=== PATIENT | male | born 1940 | race Caucasian/White ===

== ENCOUNTER → 2017-11-04 10:12 | Outpatient (CLI) | payer MEDICARE, SELFPAY ==
[2017-11-04 10:27] LABS: Microscopic, Urine URINE MICROSCOPIC (MICROSCOPIC)
[2017-11-04 10:49] LABS: Basophils # 0.1 K/mm3 (0-0.2); Basophils % 0.8 % (0.1-2.0); Eosinophils # 0.2 K/mm3 (0.0-0.4); Eosinophils % 2.3 % (0.1-12.0); Hematocrit 48.7 % (42.0-52.0); Hemoglobin 15.8 g/dL (14.1-18.0); Lymphocytes # 3.1 K/mm3 (0.7-4.5); Lymphocytes % 36.4 K/mm3 (10-50); Mean Corpuscular HGB Conc 32.3 g/dL (31.8-35.4); Mean Platelet Volume 7.4 fl (7.4-10.4); Monocytes # 0.6 K/mm3 (0.1-1.0); Monocytes % 7.1 % (1.7-9.3); Neutrophils # 4.5 K/mm3 (1.8-7.8); Neutrophils % 53.5 % (37.0-80.0); Platelet Count 298 K/mm3 (142-424); Red Blood Count 4.92 M/mm3 (4.60-6.20); Red Cell Distribution Width 12.8 % (11.5-17.5); White Blood Count 8.4 K/mm3 (4.8-10.8)
[2017-11-04 11:03] LABS: Appearance,Urine CLEAR (Clear); Bilirubin,Urine Negative (Negative); Blood, Urine TRACE-L (Negative); Color,Urine YELLOW (Yellow); Glucose,Urine (UA) Negative (Negative); Ketones,Urine Negative (Negative); Leukocyte Esterase,Urine Negative (Negative); Nitrate,Urine Negative (Negative); PH,Urine 6.5 (5.0-8.5); Protein,Urine Negative (Negative); Urobilinogen,Urine 0.2 EU/dl (0.2)
[2017-11-04 11:35] LABS: Hemoglobin A1C 7.1 % (0.0-7.0)
[2017-11-04 11:45] LABS: Bacteria,Urine Trace /lpf; RBC,Urine Occasional #/hpf (0-3)
[2017-11-04 13:52] LABS: Alanine Aminotransferase 19 U/L (12-78); Albumin/Globulin Ratio 1.1 (1.1-1.8); Alkaline Phosphatase 84 U/L (46-116); Aspartate Amino Transferase 11 U/L (15-37); Bilirubin,Total 0.4 mg/dL (0.2-1.0); Blood Urea Nitrogen 17 mg/dL (7-18); Calcium 9.7 mg/dL (8.5-10.1); Carbon Dioxide 31 mmol/L (21.0-32.0); Chloride 101 mmol/L (98-107); Cholesterol 120 mg/dL (140-200); Creatinine,Serum 1.12 mg/dL (0.70-1.30); Estimated Glomerular Filt Rate 64 ml/min (>60); GFR (African American) 77 ML/MIN (>60); Globulin 3.7 gm/dl (1.3-3.2); Glucose 101 mg/dL (74-106); HDL Cholesterol 30 mg/dL (27-67); LDL Cholesterol 64 mg/dL (0-130); Sodium 140 mmol/L (136-145); Thyroid Stimulating Hormone 5.08 uIU/ml (0.358-3.740); Total Protein,Serum 7.7 gm/dL (6.4-8.2); Triglycerides 130 mg/dL (30-200); VLDL Cholesterol 26 mg/dL (0-40)
[2017-11-05 16:54] LABS: Microalbumin, Urine 3.8 ug/mL (Not Estab.)
== END ==
PROVIDERS: PCP Internal Medicine Adolescent Medicine; Visit Provider Internal Medicine Adolescent Medicine
DX: E11.41 Type 2 diabetes mellitus with diabetic mononeuropathy (principal); I10 Essential (primary) hypertension
CPT/HCPCS: 36415; 80053; 80061; 81001; 82043; 83036; 84443; 85025

== ENCOUNTER → 2018-02-07 10:14 | Outpatient (CLI) | payer MEDICARE, SELFPAY ==
[2018-02-07 10:57] LABS: Hemoglobin A1C 8.4 % (0.0-7.0)
[2018-02-07 14:14] LABS: Alanine Aminotransferase 26 U/L (12-78); Albumin Level 4.1 gm/dL (3.4-5.0); Albumin/Globulin Ratio 1.2 (1.1-1.8); Alkaline Phosphatase 84 U/L (46-116); Anion Gap 13.1 mEq/L (5-15); Aspartate Amino Transferase 14 U/L (15-37); Bilirubin,Total 0.5 mg/dL (0.2-1.0); Blood Urea Nitrogen 17 mg/dL (7-18); Calcium 9.5 mg/dL (8.5-10.1); Carbon Dioxide 31 mmol/L (21.0-32.0); Chloride 99 mmol/L (98-107); Chol/HDL Ratio 3.1 (1-3.5); Cholesterol 91 mg/dL (140-200); Creatinine,Serum 1.17 mg/dL (0.70-1.30); Estimated Glomerular Filt Rate 61 ml/min (>60); GFR (African American) 74 ML/MIN (>60); Globulin 3.3 gm/dl (1.3-3.2); Glucose 119 mg/dL (74-106); HDL Cholesterol 29 mg/dL (27-67); LDL Cholesterol 33 mg/dL (0-130); Potassium 4.1 mmoL/L (3.5-5.1); Sodium 139 mmol/L (136-145); Total Protein,Serum 7.4 gm/dL (6.4-8.2); Triglycerides 143 mg/dL (30-200); VLDL Cholesterol 29 mg/dL (0-40)
== END ==
PROVIDERS: Visit Provider Internal Medicine Adolescent Medicine
DX: E78.01 Familial hypercholesterolemia (principal); E11.41 Type 2 diabetes mellitus with diabetic mononeuropathy
CPT/HCPCS: 36415; 80053; 80061; 83036

== ENCOUNTER → 2018-03-06 12:53 | Outpatient (CLI) | payer MEDICARE, SELFPAY ==
[2018-03-06 13:25] LABS: Basophils # 0.1 K/mm3 (0-0.2); Basophils % 0.8 % (0.1-2.0); Eosinophils # 0.2 K/mm3 (0.0-0.4); Eosinophils % 1.5 % (0.1-12.0); Hematocrit 44.3 % (42.0-52.0); Hemoglobin 14.5 g/dL (14.1-18.0); Lymphocytes % 30.4 % (10-50); Mean Corpuscular HGB Conc 32.8 g/dL (31.8-35.4); Mean Corpuscular Hemoglobin 32.7 pg (27.0-31.2); Mean Corpuscular Volume 99.5 fl (80-94); Mean Platelet Volume 7.4 fl (7.4-10.4); Monocytes # 0.6 K/mm3 (0.1-1.0); Monocytes % 6.1 % (1.7-9.3); Neutrophils % 61.3 % (37.0-80.0); Platelet Count 308 K/mm3 (142-424); Red Blood Count 4.45 M/mm3 (4.60-6.20); Red Cell Distribution Width 12.8 % (11.5-17.5); White Blood Count 9.8 K/mm3 (4.8-10.8)
[2018-03-06 14:26] LABS: Alanine Aminotransferase 27 U/L (12-78); Albumin Level 3.7 gm/dL (3.4-5.0); Albumin/Globulin Ratio 1.1 (1.1-1.8); Alkaline Phosphatase 78 U/L (46-116); Anion Gap 13.8 mEq/L (5-15); Aspartate Amino Transferase 15 U/L (15-37); Bilirubin,Total 0.5 mg/dL (0.2-1.0); Blood Urea Nitrogen 21 mg/dL (7-18); Calcium 9.4 mg/dL (8.5-10.1); Carbon Dioxide 29 mmol/L (21.0-32.0); Chloride 98 mmol/L (98-107); Creatine Kinase 48 U/L (39-308); Creatinine,Serum 1.41 mg/dL (0.70-1.30); Estimated Glomerular Filt Rate 49 ml/min (>60); Free Thyroxine Index 2.6 ug/dL (5.93-13.13); GFR (African American) 59 ML/MIN (>60); Globulin 3.4 gm/dl (1.3-3.2); Glucose 174 mg/dL (74-106); Potassium 3.8 mmoL/L (3.5-5.1); Sodium 137 mmol/L (136-145); T4 (Thyroxine) 7.9 ug/dl (4.7-13.3); Thyroid Stimulating Hormone 2.91 uIU/ml (0.358-3.740); Total Protein,Serum 7.1 gm/dL (6.4-8.2); Triiodothryronine (T3) Uptake 33 % (31-39)
[2018-03-08 17:17] LABS: Vitamin B12 265 pg/mL (232-1245)
== END ==
PROVIDERS: Visit Provider Internal Medicine Adolescent Medicine
DX: M79.10 Myalgia, unspecified site (principal)
CPT/HCPCS: 36415; 80053; 82550; 82607; 84436; 84443; 84479; 85025

== ENCOUNTER → 2018-03-23 15:19 | Outpatient (CLI) | payer MEDICARE, SELFPAY ==
[2018-03-23 16:44] LABS: Anion Gap 13.7 mEq/L (5-15); Blood Urea Nitrogen 19 mg/dL (7-18); Calcium 9.2 mg/dL (8.5-10.1); Carbon Dioxide 30 mmol/L (21.0-32.0); Chloride 100 mmol/L (98-107); Creatinine,Serum 1.16 mg/dL (0.70-1.30); Estimated Glomerular Filt Rate 61 ml/min (>60); GFR (African American) 74 ML/MIN (>60); Glucose 122 mg/dL (74-106); Potassium 3.7 mmoL/L (3.5-5.1); Sodium 140 mmol/L (136-145)
== END ==
PROVIDERS: Visit Provider Internal Medicine Adolescent Medicine
DX: N18.9 Chronic kidney disease, unspecified (principal)
CPT/HCPCS: 36415; 80048

== ENCOUNTER → 2018-04-24 17:46 | Outpatient (CLI) | payer MEDICARE, SELFPAY ==
[2018-04-24 19:02] LABS: Hemoglobin A1C 8.8 % (0.0-7.0)
[2018-04-24 19:19] LABS: Alanine Aminotransferase 28 U/L (12-78); Albumin Level 3.4 gm/dL (3.4-5.0); Alkaline Phosphatase 71 U/L (46-116); Anion Gap 14.9 mEq/L (5-15); Aspartate Amino Transferase 14 U/L (15-37); Bilirubin,Total 0.5 mg/dL (0.2-1.0); Blood Urea Nitrogen 23 mg/dL (7-18); Calcium 9.4 mg/dL (8.5-10.1); Carbon Dioxide 29 mmol/L (21.0-32.0); Chloride 94 mmol/L (98-107); Creatinine,Serum 1.15 mg/dL (0.70-1.30); Estimated Glomerular Filt Rate 62 ml/min (>60); GFR (African American) 75 ML/MIN (>60); Globulin 3.3 gm/dl (1.3-3.2); Glucose 204 mg/dL (74-106); Potassium 3.9 mmoL/L (3.5-5.1); Sodium 134 mmol/L (136-145); Total Protein,Serum 6.7 gm/dL (6.4-8.2)
== END ==
PROVIDERS: Visit Provider Internal Medicine Adolescent Medicine
DX: E11.41 Type 2 diabetes mellitus with diabetic mononeuropathy (principal); Z79.4 Long term (current) use of insulin; Z79.84 Long term (current) use of oral hypoglycemic drugs
CPT/HCPCS: 36415; 80053; 83036

== ENCOUNTER → 2018-05-29 08:29 | Outpatient (CLI) | payer MEDICARE, SELFPAY ==
--- NOTE | 2018-05-29 08:36 | US_ITS ---
US abd. aorta screening HISTORY: ITS.REASON: AAA,HYPERTENSION,TOBACCO USE ORDERING PHYSICIAN: Thomas Bowman MD PATIENT AGE: 78 years Comparison: None FINDINGS: The proximal abdominal aorta at the level of the xiphoid process measures 2.0 x 2.7 cm. At the level 4 cm below the xiphoid process the aorta measures 2.5 x 2.3 cm. The bifurcation is normal in caliber and the origins of the common iliacs are normal. At level 2 cm above the umbilicus the aorta measures 2.1 x 2.1 cm. At the umbilicus the aorta measures 2.4 x 1.3 cm. OTHER FINDINGS: No other pertinent findings IMPRESSION: Borderline dilatation of the infrarenal aorta.
== END ==
PROVIDERS: PCP Internal Medicine Adolescent Medicine; Visit Provider Internal Medicine Adolescent Medicine
DX: Z13.6 Encounter for screening for cardiovascular disorders (principal); I10 Essential (primary) hypertension; F17.200 Nicotine dependence, unspecified, uncomplicated
CPT/HCPCS: 76705

== ENCOUNTER → 2018-07-28 09:56 | Outpatient (CLI) | payer MEDICARE, SELFPAY ==
[2018-07-28 11:58] LABS: Alanine Aminotransferase 20 U/L (12-78); Albumin Level 3.5 gm/dL (3.4-5.0); Albumin/Globulin Ratio 1.1 (1.1-1.8); Alkaline Phosphatase 65 U/L (46-116); Anion Gap 8.9 mEq/L (5-15); Aspartate Amino Transferase 12 U/L (15-37); Bilirubin,Total 0.6 mg/dL (0.2-1.0); Blood Urea Nitrogen 14 mg/dL (7-18); Carbon Dioxide 33 mmol/L (21.0-32.0); Chloride 104 mmol/L (98-107); Creatinine,Serum 1.05 mg/dL (0.70-1.30); Estimated Glomerular Filt Rate 69 ml/min (>60); GFR (African American) 83 ML/MIN (>60); Globulin 3.3 gm/dl (1.3-3.2); Glucose 181 mg/dL (74-106); Potassium 3.9 mmoL/L (3.5-5.1); Sodium 142 mmol/L (136-145); Total Protein,Serum 6.8 gm/dL (6.4-8.2)
[2018-07-28 14:34] LABS: Hemoglobin A1C 8.1 % (0.0-7.0)
== END ==
PROVIDERS: Visit Provider Internal Medicine Adolescent Medicine
DX: E11.41 Type 2 diabetes mellitus with diabetic mononeuropathy (principal); Z79.4 Long term (current) use of insulin; Z79.84 Long term (current) use of oral hypoglycemic drugs
CPT/HCPCS: 36415; 80053; 83036

== ENCOUNTER → 2019-04-01 07:44 | Outpatient (CLI) | payer MEDICARE, SELFPAY ==
--- NOTE | 2019-04-01 08:00 | CT_ITS ---
PROCEDURE: CT LUNG SCREENING CLINICAL INDICATION: CURRENT TOBACCO USE COMPARISON: No exams were available for comparison TECHNIQUE: The exam was performed on a GE Light Speed [address] scanner using 2.90 mGy CTDI. A low dose helical CT CHEST was performed on a multi-detector scanner. All CT scans at the facility use one or more dose reduction, viz: automated exposure control, ma/kV adjustment per patient size (including targeted exams where dose is matched to indication, i.e. head), or iterative reconstruction technique. The LDCT was performed in a facility that meets the criteria for the screening program. Data regarding this exam was submitted to ACR which is an approved registry. The order for this exam indicates that it came as a result of a lung cancer screening counseling shard decision-making visit that included all the elements required of such a visit including smoking cessation. The radiologist interpreting this exam meets the CMS criteria for the LDCT lung cancer screening program. The exam is reported using the Lung-RADS classification scale and reported to the ACR registry. NOTE: This study was performed for the specific purposes of lung cancer screening and is not an alternative to diagnostic chest CT. RADIATION DOSE: CTDI vol(CT dose Index-volume) = 2.90mG DLP (Dose Length Product) = 117.24 mGcm Lung Rads Category: 4A -suspicious follow-up 3 month low-dose CT, or PET/CT at this time should be considered for further assessment. FINDINGS: On image 47 series 4 noncalcified pulmonary nodule is seen in the left mid lung field along the oblique fissure approximately 7.5 x 8.3 millimeters. A 3.5 millimeter noncalcified pulmonary nodule is seen in the. Lungs are emphysematous. There is scarring in the extreme left apex. There are coronary arterial calcifications. Small nonspecific mediastinal lymph nodes are noted. Calcified right hilar lymph nodes are noted consistent with healed granulomatous disease. It is possible the pulmonary nodules are noncalcified granulomas. 6 centimeter cyst is incidentally noted of the upper pole the left kidney. IMPRESSION: Suspicious nodule as described. Follow up is recommended. Dictated by: Daryl Valentino 04/01/2019 08:58 Electronically signed by Daryl Valentino in [place] 04/01/2019 08:58
== END ==
PROVIDERS: PCP Internal Medicine Adolescent Medicine; Visit Provider Internal Medicine Adolescent Medicine
DX: Z87.891 Personal history of nicotine dependence (principal); Z12.2 Encounter for screening for malignant neoplasm of respiratory organs

== ENCOUNTER → 2019-07-01 16:38 | Outpatient (CLI) | payer MEDICARE, SELFPAY ==
--- NOTE | 2019-07-01 16:44 | XR_ITS ---
PROCEDURE: XR CERVICAL SPINE 5V CLINICAL INDICATION: NECK PAIN COMPARISON: No exams were available for comparison FINDINGS: There is normal alignment. No acute fracture or dislocation is evident. There is fusion of the C2-C3 vertebra. There is mild foraminal narrowing on the right at C3-C4 and on the left at C4-C5. There is some minimal ossification anteriorly at the disc space at C4-C5 and C5-C6 and C6-C7. There is minimal anterolisthesis of C6 on C7 of 2 mm. There is mild kyphosis of the upper thoracic spine. IMPRESSION: Degenerative changes as described above. Klippel-Feil deformity of C2-C3 Dictated by: Benito Nicolas MD 07/01/2019 18:15 Electronically signed by Benito Nicolas MD in [facility] 07/01/2019 18:15
== END ==
PROVIDERS: PCP Internal Medicine Adolescent Medicine; Visit Provider Nurse Practitioner Family
DX: M54.2 Cervicalgia (principal)
CPT/HCPCS: 72050

== ENCOUNTER → 2019-10-27 07:14 | Outpatient (CLI) | payer MEDICARE, SELFPAY ==
--- NOTE | 2019-10-27 | CA_ITS ---
APPROVED REPORT Exam: Pharmacologic Technologist: Vicki Vanegas, Ht: 6 ft 3 in Wt: 208 lbs BSA: 2.23 m2 HR: 78 bpm BP: 183/78 mmHg Indications: Chest pain Medical History Medications: Metformin,,,,, Gabapentin,,,,, INSULIN,,,,, MeLOXICAM,,,,, CHlorthalidone,,,,, BisOPROLOL,,,,, RuSUVASTATIN,,,,, Asprin,,,,, QuinArip-HCTZ,,,,, Stress Test Details Test: LEXISCAN HR Resting HR: 59 bpm Max Heart Rate (APMHR): 143 bpm Max HR Achieved: 85 bpm Target HR (85% APMHR): 121 bpm % of APMHR: 59 Recovery HR: 77 bpm BP Resting BP: 183/78 mmHg Max BP: 183/78 mmHg Recovery BP: 165.0/71.0 mmHg ECG Clinical Exercise duration: 04:01 min Highest Stage Achieved: Stress ECG Conclusion Resting EKG: NSR, PVC Symptoms: SOA, cough, No Chest Pain Arrythmias/Ectopy: None ST-T Changes: No significant changes Conclusion: Unremarkable Lexiscan stress, Myoview images reported separately Test Summary REST . . . . . . . Resting REST 02:14 . . 59 . 183/ 78 . . Stage 1 01:00 . . 75 . . . . Stage 2 01:00 . . 85 . 150/ 71 . . Stage 3 01:00 . . 83 . 160/ 72 . . Stage 4 01:00 . . 75 . 168/ 74 . . Stage 4 01:01 . . 73 . 168/ 74 . Stop exercise at 04:01 RECOVERY 01:00 . . 80 . . . . RECOVERY 02:00 . . 78 . 158/ 74 . . RECOVERY 03:00 . . 77 . 158/ 74 . . RECOVERY 03:17 . . 77 . 165/ 71 . . Electronically signed by : Phong Ngo, 10/28/2019 14:21:43
--- NOTE | 2019-10-27 07:19 | NM_ITS ---
APPROVED REPORT Exam: Nuclear Stress Test Indication: Chest pain, CAD, HTN, DM, High cholesterol, Tobacco use Patient Location: Outpatient [place] Tech:Nellie Tellez MIGUELT, RT (R)(N) Ht: 6 ft 3 in Wt: 208 lbs HR: 78 bpm BP: 183/78 mmHg BSA: 2.23 m2 BMI: 25.9 History: Chest pain, CAD, HTN, DM, High cholesterol, Tobacco use Procedure: Patient received a 0.4 mg of intravenous Lexiscan, resting heart rate 78 bpm, resting blood pressure 183/78 mmHg, with Lexiscan maximum heart rate achived was 85 bpm which is Less than 85 % of the maximum predicted heart rate and blood pressure was 150/71 mmHg. With Lexiscan, patient denied any complaint of chest pain. Electrocardiogram Resting electrocardiogram showed sinus rhythm, with Lexiscan there is less than 1.[address] segment depression noted from the baseline EKG. The EKG portion of the Lexiscan is nondiagnostic. Cardiac Stress and Resting SPECT Images: Cardiac Stress and Resting SPECT images were obtained using technetium 99m Myoview 32.8 mCi stress and 10.24 mCi at rest. Gated SPECT for analysis of segmental wall motion and calculation of the ejection fraction also done. Cardiac stress and resting SPECT images show a fixed defect involving the inferior and posterolateral wall with normal contractility gated SPECT is likely secondary to soft tissue attenuation, no reversible ischemia seen. Computer derived ejection fraction is 57% with no regional wall motion abnormality, right ventricle is normal size and contractility. Conclusion: 1. The EKG portion of the Lexiscan Myoview is nondiagnostic. 2. No scintigraphic evidence of reversible ischemia seen, computer derived ejection fraction 57% with no regional wall motion abnormality, right ventricle is normal size and contractility. 3. Likely normal Lexiscan Myoview study. Electronically signed by : Phong Ngo, 10/28/2019 14:24:42
== END ==
PROVIDERS: PCP Internal Medicine Adolescent Medicine; Visit Provider Internal Medicine Adolescent Medicine
DX: R07.9 Chest pain, unspecified (principal)
CPT/HCPCS: 78452; 93017; A9502; J2785

== ENCOUNTER → 2020-03-17 15:06 | Outpatient (CLI) | payer MEDICARE, SELFPAY ==
[2020-03-17 16:47] LABS: Hemoglobin A1C 8.6 % (4.0-6.0)
[2020-03-17 17:25] LABS: Alanine Aminotransferase 13 U/L (12-78); Albumin Level 4.2 g/dl (3.5-5.0); Albumin/Globulin Ratio 1.5 (1.1-1.8); Alkaline Phosphatase 62 U/L (38-126); Anion Gap 10.1 mEq/L (5-15); Aspartate Amino Transferase 21 U/L (17-59); Bilirubin,Total 0.4 mg/dl (0.2-1.3); Blood Urea Nitrogen 13 mg/dl (9-20); Calcium 9.9 mg/dl (8.4-10.2); Carbon Dioxide 33 mmol/L (22.0-30.0); Chloride 99 mmol/L (98-107); Chol/HDL Ratio 3.4 (1-3.5); Cholesterol 85 mg/dl (140-200); Estimated Glomerular Filt Rate 72 ml/min (>60); GFR (African American) 88 ML/MIN (>60); Globulin 2.8 g/dL (1.3-3.2); Glucose 352 mg/dl (74-100); HDL Cholesterol 25 mg/dl (40-60); Potassium 5.1 mmoL/L (3.5-5.1); Sodium 137 mmol/L (136-145); Triglycerides 224 mg/dl (30-150); VLDL Cholesterol 45 mg/dL (0-40)
[2020-03-17 17:36] LABS: Direct LDL Cholesterol 31.07 mg/dL (100-129)
== END ==
PROVIDERS: Visit Provider Internal Medicine Adolescent Medicine
DX: I10 Essential (primary) hypertension (principal); E11.41 Type 2 diabetes mellitus with diabetic mononeuropathy; Z79.4 Long term (current) use of insulin
CPT/HCPCS: 36415; 80053; 80061; 83036

== ENCOUNTER → 2020-06-20 07:22 | Outpatient (CLI) | payer MEDICARE, SELFPAY ==
--- NOTE | 2020-06-20 07:27 | CT_ITS ---
PROCEDURE: CT LUNG SCREENING CLINICAL INDICATION: H/O NICOTINE DEPENDENCE COMPARISON: CT CT LUNG SCREENING from 04/01/2019 TECHNIQUE: The exam was performed on a GE Light Speed [address] scanner using 2.90 mGy CTDI. A low dose helical CT CHEST was performed on a multi-detector scanner. All CT scans at the facility use one or more dose reduction, viz: automated exposure control, ma/kV adjustment per patient size (including targeted exams where dose is matched to indication, i.e. head), or iterative reconstruction technique. The LDCT was performed in a facility that meets the criteria for the screening program. Data regarding this exam was submitted to ACR which is an approved registry. The order for this exam indicates that it came as a result of a lung cancer screening counseling shard decision-making visit that included all the elements required of such a visit including smoking cessation. The radiologist interpreting this exam meets the CMS criteria for the LDCT lung cancer screening program. The exam is reported using the Lung-RADS classification scale and reported to the ACR registry. NOTE: This study was performed for the specific purposes of lung cancer screening and is not an alternative to diagnostic chest CT. RADIATION DOSE: CTDI vol(CT dose Index-volume) = 2.90mG DLP (Dose Length Product) = mGcm FINDINGS: There is subpleural minor tree-in-bud appearance is noted measuring up to 1.4 centimeters in the right upper lobe. This may represent minor infection/inflammation. There is minor left basal atelectasis. 3 millimeter nodule in the left upper lobe is unchanged subpleural nodule in the right lower lobe is again noted measuring 8 millimeters, unchanged. Minor centrilobular emphysematous changes are noted bilaterally. No lobar consolidation, pleural effusions or pneumothorax. The central tracheobronchial tree is patent. No other new suspicious lung nodules are noted. The heart size is normal. No pericardial effusions. Atherosclerotic vascular calcification of the thoracic aorta and the coronary arteries. No significant mediastinal adenopathy. No significant hilar lymphadenopathy is noted within the limitations of unenhanced study. Few calcified lymph nodes are noted in the right hilum. The visualized upper abdominal solid organs demonstrate a focal hypodense lesion in the left kidney measuring 6.6 x 6.2 cm, partially visualized. This is unchanged compared to prior study. Minor multilevel degenerative changes of the visualized thoracic spine. Visualized thyroid gland is unremarkable. IMPRESSION: Focal tree-in-bud appearance in the right upper lobe. This may represent minor infection/inflammation. Stable lung nodules are again noted. Lung-RADS Category 3 Probably Benign Follow-up: Follow-up non-contrast CT in 6-12 months is recommended. Dictated by: Isabella Arriaza 06/20/2020 10:12 Isabella Arriaza in [place] 06/20/2020 10:12
== END ==
PROVIDERS: PCP Internal Medicine Adolescent Medicine; Visit Provider Internal Medicine Adolescent Medicine
DX: Z87.891 Personal history of nicotine dependence (principal); Z12.2 Encounter for screening for malignant neoplasm of respiratory organs
CPT/HCPCS: 71271

== ENCOUNTER → 2020-08-04 15:18 | Outpatient (CLI) | payer MEDICARE, SELFPAY ==
[2020-08-04 16:42] LABS: Prostate Specific Ag Screen 1.2 ng/ml (0.0-4.0)
== END ==
PROVIDERS: Visit Provider Urology
DX: Z12.5 Encounter for screening for malignant neoplasm of prostate (principal)
CPT/HCPCS: 36415; G0103

== ENCOUNTER → 2021-07-17 13:28 | Outpatient (POV) | payer MEDICARE, SELFPAY ==
[2021-07-17 13:56] VITALS: BP 190/76; PULSE 59; RESP 18; TEMP 36.9; O2SAT 97; BMI 26.6
--- NOTE | 2021-07-17 14:35 | HMH.PMCON ---
Assessment and Plan (1) Chronic low back pain Status: Acute Category: Medical Code(s): M54.50 - Low back pain, unspecified; G89.29 - Other chronic pain (2) Lumbar radiculopathy Status: Acute Category: Medical Code(s): M54.16 - Radiculopathy, lumbar region - Assessment and plan all Dx Assessment and Plan for all problems:: We will schedule the patient for a lumbar epidural steroid injection at L4-L5. Risk and benefits have been discussed with the patient. Patient would like to proceed with this procedure. Patient is not on any blood thinners. We will also order an updated lumbar MRI. Patient has been instructed to contact the clinic with any concerns before the next appointment. Dr. Crowder has reviewed this note and agrees with this plan of care. This note was dictated using voice recognition software and make contain errors or omissions. HPI - Data of Consult Patient: new to practice Consult date: 07/17/21 Requesting Physician: KARIN Shelton - Consult Narrative Reason for consult: low back pain History of present illness: Mr. Nunez is a 81 year old male who presents today as a new pt. 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 Patient presents today with chronic LBP that radiates to BLE, R > L. He states that he has had this back pain for over 20 years. He said he got kneed in the back while he was traveling. He has had this pain since then. Denies any recent falls or traumas. In the past, he was managing this pain with epidural steroid injections'. He says that he was seeing [place] that would do these injections. Each injection would typically last 6 months. He has not been to that doctor in about 4 years. He has not had any updated imaging. He has done physical therapy and chiropractic adjustments that provided some relief. Pain is worse with any prolonged activity such as standing or walking. He also has pain while riding his mower. Rates pain today as 8 out of 10. He takes [id number] medications. He is not on any scheduled medications. Pineda [id number] with an active morphine equivalent of 0. CC: KARIN Shelton [facility] History I have reviewed the patient's past medical history: Yes Medical History: Reports:: Coronary Artery Disease, Hyperlipidemia, Hypertension, Myocardial Infarction Denies:: Cancer, Diabetes Mellitus Type 1, Diabetes Mellitus Type 2, MRSA *Have you ever received a pneumonia vaccine?: Yes *Have you received a flu vaccine this season?: Yes Other Medical History: Reports: Arthritis Other Surgeries: Yes: No Previous Surgery, Colonoscopy, Coronary Stent Amputation: No Fractures: No - *Social History Smoking Status: Current every day smoker Tobacco Type: cigarettes # Packs/Day (cigarettes): 1 Alcohol Intake: never Substance Use Type: denies use *Occupational Status:: retired Housing: house Household Members: spouse *Travel in the last 8 weeks: None Family Hx:: Diabetes, Hypertension Review of Systems - Review of Systems Review of Systems: General: No recent weight changes, no fever, no sleep disturbances Respiratory: No cough, no shortness of air, no recurring pulmonary infections Cardiovascular/peripheral vascular: No chest pain, no palpitations, no edema, no shortness of breath Gastrointestinal: No new onset incontinence, normal bowel movements reported Genitourinary: No new onset incontinence Musculoskeletal: Low back pain Psychiatric: [Normal mood/affect] Neurological: [Denies weakness in extremities], [denies balance issues] Meds Home Medications Medication Instructions Recorded Confirmed Type Bisoprolol Fumarate [Bisoprolol 5 mg PO DAILY 01/17/18 05/14/21 History 5mg Tablet] Gabapentin [Gabapentin 300mg Cap] 300 mg PO BID 01/17/18 05/14/21 History Metformin HCl [Metformin HCl ER] 1,000 mg PO BID 01/17/18 05/14/21 History insulin aspar prt-insulin aspart 40 unit SQ DAILY ml 05/14/21 05/14/21 History 100 unit/mL (70-30) subcutaneous soln q
== END ==
PROVIDERS: Visit Provider Student in an Organized Health Care Education/Training Program
DX: M54.16 Radiculopathy, lumbar region (principal); M54.50 Low back pain, unspecified; G89.29 Other chronic pain
CPT/HCPCS: 99202; G0463

== ENCOUNTER → 2021-07-18 13:03 | Outpatient (CLI) | payer MEDICARE, SELFPAY ==
--- NOTE | 2021-07-18 13:10 | CT_ITS ---
FINAL REPORT TECHNIQUE: Axial CT images were performed from the lung apices through the upper abdomen. Coronal reformats were submitted. This study was performed with techniques to keep radiation doses as low as reasonably achievable (ALARA). Individualized dose reduction techniques using automated exposure control or adjustment of mA and/or kV according to the patient's size were employed. CLINICAL HISTORY: TOBACCO USE DISORDER. SOB COMPARISON: 06/20/2020 FINDINGS: There is no axillary adenopathy. There is severe coronary artery calcification. There are small mediastinal nodes without evidence of adenopathy. Heart size is normal. There is no pericardial or pleural effusion. There is mild emphysema. There is a 9 mm nodular opacity in the lateral right upper lobe which is stable. There is a posterior right upper lobe nodule measuring 4 mm, stable. There is an 8 mm nodule at the left major fissure, stable. This may represent an intra fissural node. There is a new, nodule in the anterior left upper lobe measuring 5 mm. Limited images of the upper abdomen show the gallbladder to be partially collapsed with mild wall thickening. There is a partially imaged cyst in the left kidney. IMPRESSION: New left upper lobe nodule measures 5 mm. Recommend six-month follow-up. Other stable nodules as detailed above. Reviewed, Interpreted and Dictated by Schuyler Hazel III, MD Transcribed by Fabiola Malloy Authenticated and . [facility]
== END ==
PROVIDERS: PCP Internal Medicine Adolescent Medicine; Visit Provider Nurse Practitioner Family
DX: R06.02 Shortness of breath (principal); F17.200 Nicotine dependence, unspecified, uncomplicated
CPT/HCPCS: 71250

== ENCOUNTER 2021-07-20 12:06 | Day surgery (SDC) | payer MEDICARE, SELFPAY ==
[2021-07-20 12:24] VITALS: BP 186/98; PULSE 59; RESP 20; TEMP 36.8; O2SAT 98; BMI 26.6
[2021-07-20 12:46] VITALS: BP 181/79; PULSE 60; RESP 18
--- NOTE | 2021-07-20 12:46 | HMH.PMPROC ---
- Procedure Date: 07/20/21 Time: 12:47 Anesthesiologist:: Caleb Jiang CRNA Complications:: None Pre-procedure Diagnosis:: Lumbar back pain. Lumbar radiculopathy symptoms. Post-procedure Diagnosis:: Same Indications for Procedure:: Very pleasant 81-year-old male who comes our injection clinic today for lumbar epidural steroid injection at the L4-5 level. Patient states his low back pain is constant, dull, aching. Patient also has bilateral leg radiculopathy symptoms. He rates his pain 7/10 today. Procedure Details:: Procedure: Lumbar epidural steroid injection under fluoroscopy Informed consent was obtained and the risks and benefits of the procedure were explained to the patient. The patient was taken to the procedure room and noninvasive monitors placed, including noninvasive blood pressure cuff and pulse oximeter. The back was viewed using C-arm Fluoroscopy and prepped using Betadine as a cleansing solution and the L4-L5 interspace was palpated. Skin and subcutaneous tissues were anesthetized using lidocaine 1.5% and a 25-gauge needle. After this, an 18-gauge Touhy epidural needle was placed into the L4-L5 interspace and advanced using fluoroscopic guidance and loss of resistance to air until the epidural space was encountered. After confirmation of needle placement in the epidural space, with dye, a solution containing lidocaine 1.5%, 4 mL and Depo-Medrol 80 mg were incrementally injected into the lumbar epidural space. The patient tolerated the procedure well with no complications. The patient was observed in the Pain Clinic and then discharged home neurologically intact. Plan and Disposition:: Patient was discharged without incident.
[2021-07-20 12:47] VITALS: BP 190/80; PULSE 60; RESP 18; O2SAT 97
[2021-07-20 13:05] VITALS: BP 195/82; PULSE 59; RESP 20; O2SAT 98
--- NOTE | 2021-07-20 13:29 | MR_ITS ---
FINAL REPORT CLINICAL HISTORY: BACK PAIN. symptoms xyears FINDINGS: Multiplanar MR imaging of the lumbar spine was performed without contrast. On the sagittal T2-weighted images, disc degeneration is seen throughout. There are endplate changes at L4-L5 and L5-S1. The vertebral alignment is normal. There is no evidence of fracture. The conus has an unremarkable appearance. T12-L1: There is no significant canal stenosis or neural foraminal narrowing. L1-2: An annular bulge is present. L2-3: There is an annular bulge, facet arthropathy and vertebral osteophytes. There is a right posterolateral disc protrusion. There is mild right neural foraminal narrowing. L3-4: There is an annular bulge and facet arthropathy. There is mild bilateral neural foraminal narrowing. L4-5: There is an annular bulge, facet arthropathy and vertebral osteophytes. There is a small central disc protrusion. There is moderate right and mild left neural foraminal narrowing. There is right lateral recess stenosis. There is mild central canal stenosis with an AP thecal sac diameter of 9 mm. L5-S1: There is an annular bulge and facet arthropathy. There is moderate bilateral neural foraminal narrowing. There is spurring of the SI joints. There is ectasia of the abdominal aorta up to 30 mm. IMPRESSION: Multilevel degenerative disc disease with areas of neural foraminal narrowing and central canal stenosis. Disc protrusions at L2-L3 and L4-L5. Right lateral recess stenosis at L4-L5. Reviewed, Interpreted and Dictated by Schuyler Hazel III, MD Transcribed by Mike Silva Authenticated and [facility]
== END 2021-07-20 13:05 | disposition home or self-care (01) ==
PROVIDERS: PCP Internal Medicine Adolescent Medicine; Visit Provider Nurse Anesthetist, Certified Registered
DX: M54.16 Radiculopathy, lumbar region (principal); G89.29 Other chronic pain; I25.10 Atherosclerotic heart disease of native coronary artery without angina pectoris; I10 Essential (primary) hypertension; I25.2 Old myocardial infarction; E78.5 Hyperlipidemia, unspecified; M19.90 Unspecified osteoarthritis, unspecified site; Z72.0 Tobacco use
CPT/HCPCS: 62323; 72148; 76376; J1040

== ENCOUNTER → 2021-07-20 13:19 | Outpatient (CLI) | payer MEDICARE, SELFPAY | PROVIDERS: PCP Internal Medicine Adolescent Medicine; Visit Provider Student in an Organized Health Care Education/Training Program | DX: M54.50 Low back pain, unspecified (principal) ==

== ENCOUNTER → 2021-07-30 13:36 | Outpatient (POV) | payer MEDICARE, SELFPAY ==
[2021-07-30 14:15] VITALS: BP 178/84; PULSE 56; RESP 20; TEMP 36.7; O2SAT 97; BMI 26.6
--- NOTE | 2021-07-30 14:44 | HMH.PAINSOAP ---
[facility] Pain Management SOAP Note Subjective:: Patient is a pleasant 81-year-old male who presents today for follow-up after a lumbar epidural steroid injection at L4-L5 on July 20, 2021. Patient is currently being treated for degenerative disc disease of lumbar spine with lumbar radiculopathy symptoms. After the procedure, patient had significant relief of 80 to 90% that only lasted for about a week. He states that he was able to increase his activity during that week and was able to mow his lawn without pain. Today, patient says that his pain is starting to go back to baseline. Rates his pain as 8 out of 10. Denies any recent falls or traumas. Last time I saw this patient, I also ordered a lumbar MRI. His lumbar MRI shows multilevel degenerative disc changes with areas of neuroforaminal narrowing and central canal stenosis. He has disc protrusions at L2-L3 and L4-L5. Right lateral recess stenosis at L4-L5. For pain, he does not take any medications other than OTC meds. Pineda [id number] with a morphine equivalent of 0. Review of Systems: General: No recent weight changes, no fever, no sleep disturbances Respiratory: No cough, no shortness of air, no recurring pulmonary infections Cardiovascular/peripheral vascular: No chest pain, no palpitations, no edema, no shortness of breath Gastrointestinal: No new onset incontinence, normal bowel movements reported Genitourinary: No new onset incontinence Musculoskeletal: Low back pain Psychiatric: [Normal mood/affect] Neurological: [Denies weakness in extremities], [denies balance issues] Objective:: Physical Exam: General: Alert and oriented x3, no acute distress, pleasant and cooperative Lungs: Respirations even and unlabored, symmetrical chest expansion Eyes: PERRL Musculoskeletal: Flexion and extension of lumbar [spine] somewhat guarded secondary to pain, [antalgic gait noted] Neurological: Speech clear, no gross sensory deficit Assessment:: Degenerative disc disease of lumbar spine with lumbar radiculopathy symptoms Plan:: Imaging: Ordering Physician: Marcus Gonzales Date of Service: 07/20/21 Procedure(s): MR lumbar spine wo con Accession Number(s): [id number] cc: Thomas Bowman MD; Schuyler Hazel MD~ FINAL REPORT CLINICAL HISTORY: BACK PAIN. symptoms xyears FINDINGS: Multiplanar MR imaging of the lumbar spine was performed without contrast. On the sagittal T2-weighted images, disc degeneration is seen throughout. There are endplate changes at L4-L5 and L5-S1. The vertebral alignment is normal. There is no evidence of fracture. The conus has an unremarkable appearance. T12-L1: There is no significant canal stenosis or neural foraminal narrowing. L1-2: An annular bulge is present. L2-3: There is an annular bulge, facet arthropathy and vertebral osteophytes. There is a right posterolateral disc protrusion. There is mild right neural foraminal narrowing. L3-4: There is an annular bulge and facet arthropathy. There is mild bilateral neural foraminal narrowing. L4-5: There is an annular bulge, facet arthropathy and vertebral osteophytes. There is a small central disc protrusion. There is moderate right and mild left neural foraminal narrowing. There is right lateral recess stenosis. There is mild central canal stenosis with an AP thecal sac diameter of 9 mm. L5-S1: There is an annular bulge and facet arthropathy. There is moderate bilateral neural foraminal narrowing. There is spurring of the SI joints. There is ectasia of the abdominal aorta up to 30 mm. IMPRESSION: Multilevel degenerative disc disease with areas of neural foraminal narrowing and central canal stenosis. Disc protrusions at L2-L3 and L4-L5. Right lateral recess stenosis at L4-L5. Reviewed, Interpreted and Dictated by Schuyler Hazel III, MD Transcribed by Mike Silva Authenticated and [facility]
== END ==
PROVIDERS: PCP Internal Medicine Adolescent Medicine; Visit Provider Student in an Organized Health Care Education/Training Program
DX: M51.16 Intervertebral disc disorders with radiculopathy, lumbar region (principal)
CPT/HCPCS: 99212; G0463

== ENCOUNTER 2021-09-04 13:16 | Day surgery (SDC) | payer MEDICARE, SELFPAY ==
[2021-09-04 13:15] VITALS: BP 171/72; PULSE 58; RESP 20; O2SAT 97; BMI 25.7
[2021-09-04 13:33] VITALS: BP 172/68; PULSE 63; RESP 20
[2021-09-04 13:50] VITALS: BP 171/72; PULSE 58; RESP 18; O2SAT 97
--- NOTE | 2021-09-04 13:50 | P.PCN_ITS ---
- Procedure Date: 09/04/21 Time: 13:50 Anesthesiologist:: Caleb Jiang CRNA Complications:: None Pre-procedure Diagnosis:: Degenerative disc lumbar spine multilevels. Lumbar spondylosis. Lumbar facet arthropathy. Post-procedure Diagnosis:: Same. Indications for Procedure:: This patient is a pleasant 81-year-old male that comes our clinic today for bilateral medial branch block lumbar spine L4-5, L5-S1. Patient reports low back pain is constant, dull, aching. He has difficulty with extension. Patient also reports pain intensifies with standing. He rates the pain 8/10. Procedure Details:: Informed consent was obtained and the risk and benefits of the procedure was explained to the patient. Patient was taken to the procedure room where noninvasive monitors were placed, including noninvasive blood pressure cuff as well as pulse oximeter. The area over the lumbar spine was cleansed using chlorhexidine as a cleansing solution. I anesthetized the skin and subcutaneous tissues with 1% Lidocaine. I placed 22-gauge spinal needles into the facet joint/ medial branches of L4-L5, and L5-S1] bilaterally. Needle placement was confirmed with fluoroscopy. After confirmation of needle placement, each site was injected with 1 mL of 1% lidocaine and 0.25 % Marcaine and 10 mg of Depo- Medrol. A total of 80 mg of depo medrol was used for bilateral medial branch blocks of L4-L5, and L5-S1] bilaterally. Patient tolerated the procedure without difficulty. There were no complications. Plan and Disposition:: Discussed in detail with the patient regarding his degree of relief postinjection. This was at the 15-minutes post injection. He reports essentially no pain in the lumbar spine. No pain with flexion and/or extension. No pain standing.
== END 2021-09-04 13:51 | disposition home or self-care (01) ==
LOC: SC.PAINP 13:18
PROVIDERS: PCP Internal Medicine Adolescent Medicine; Visit Provider Nurse Anesthetist, Certified Registered
DX: M51.36 Other intervertebral disc degeneration, lumbar region (principal); M46.96 Unspecified inflammatory spondylopathy, lumbar region; M47.816 Spondylosis without myelopathy or radiculopathy, lumbar region
CPT/HCPCS: 64493; 64494; J1040

== ENCOUNTER → 2021-09-24 13:03 | Outpatient (POV) | payer MEDICARE, SELFPAY ==
[2021-09-24 13:21] VITALS: BP 166/64; PULSE 58; RESP 20; TEMP 36.8; O2SAT 99; BMI 24.3
--- NOTE | 2021-09-24 13:58 | HMH.PAINSOAP ---
[facility] Pain Management SOAP Note Subjective:: Patient is a pleasant 81-year-old male that presents today for follow-up from a medial branch block of L4-L5, L5-S1 on 09/04/2021. We are currently treating the patient for degenerative disc disease of lumbar spine with lumbar spondylosis, lumbar facet arthropathy. Patient states that he has gotten significant improvement in his symptoms since this injection. He rates it at 50% improvement however he only got a little over 1 days worth of relief. Patient did have 80 to 90% improvement from his first medial branch block. Today the patient rates his pain a 9 out of 10. He states the pain is all in his lower back and describes it as a aching, throbbing sensation that is worse with activity. Patient denies any new trauma or injury to the site. He denies any change to the location or type of pain he experiences. Patient states he does currently take ibuprofen and Tylenol to help manage his pain. He has seen physical therapy and chiropractors in the past with minimal improvement of symptoms. He also has tried dcjq-kys-crbadjx creams and states he got no relief with these. His Pineda is [id number]. It has been reviewed and appropriate. Review of Systems: General: No recent weight changes, no fever, no sleep disturbances Respiratory: No cough, no shortness of air, no recurring pulmonary infections Cardiovascular/peripheral vascular: No chest pain, no palpitations, no edema, no shortness of breath Gastrointestinal: No new onset incontinence, normal bowel movements reported Genitourinary: No new onset incontinence Musculoskeletal: Low back pain Psychiatric: [Normal mood/affect] Neurological: [Denies weakness in extremities], [denies balance issues] Objective:: Physical Exam: General: Alert and oriented x3, no acute distress, pleasant and cooperative Lungs: Respirations even and unlabored, symmetrical chest expansion Eyes: PERRL Musculoskeletal: Flexion and extension of lumbar [spine] somewhat guarded secondary to pain, [antalgic gait noted] Neurological: Speech clear, no gross sensory deficit Assessment:: Degenerative disc disease of lumbar spine multilevels with lumbar spondylosis and lumbar facet arthropathy Plan:: Patient did get significant relief with his last medial branch block however it only gave 24 hours worth of relief. I have discussed with the patient regarding proceeding forward with the lumbar RFA. Risk and benefits were discussed with the patient. He would like to proceed forward with the injection. We will schedule the patient for a medial branch block of his lumbar spine at L4-L5 and L5-S1 bilaterally at today's visit. Patient has been instructed to contact the clinic with any concerns before the next appointment. Dr. Crowder has reviewed this note and agrees with this plan of care. This note was dictated using voice recognition software and make contain errors or omissions. [facility] History I have reviewed the patient's past medical history: Yes Medical History: Reports:: Coronary Artery Disease, Diabetes Mellitus Type 2, Hyperlipidemia, Hypertension, Myocardial Infarction Denies:: Cancer, Diabetes Mellitus Type 1, MRSA *Have you ever received a pneumonia vaccine?: Yes *Have you received a flu vaccine this season?: Yes Other Medical History: Reports: Arthritis Other Surgeries: Yes: No Previous Surgery, Colonoscopy, Coronary Stent Amputation: No Fractures: No - *Social History Smoking Status: Current every day smoker Tobacco Type: cigarettes # Packs/Day (cigarettes): 1 Alcohol Intake: never Substance Use Type: denies use *Occupational Status:: other Housing: house Household Members: spouse *Travel in the last 8 weeks: None Family Hx:: No significant family history
== END ==
PROVIDERS: PCP Internal Medicine Adolescent Medicine; Visit Provider Nurse Practitioner Family
DX: M51.16 Intervertebral disc disorders with radiculopathy, lumbar region (principal); M47.26 Other spondylosis with radiculopathy, lumbar region
CPT/HCPCS: 99212; G0463

== ENCOUNTER 2021-10-02 10:05 | Day surgery (SDC) | payer MEDICARE, SELFPAY ==
[2021-10-02 10:12] VITALS: BP 182/77; BP 183/70; PULSE 52; PULSE 58; RESP 18; TEMP 37.1; O2SAT 96; O2SAT 99; BMI 24.0
--- NOTE | 2021-10-02 11:03 | P.PCN_ITS ---
- Procedure Date: 10/02/21 Time: 11:03 Anesthesiologist:: Ivan Crowder MD Complications:: None Pre-procedure Diagnosis:: Degenerative disc disease of lumbar spine with lumbar spondylosis and lumbar facet arthropathy Post-procedure Diagnosis:: Same Indications for Procedure:: This patient is a pleasant 81-year-old white male who we are treating for low back pain with lumbar spondylosis and lumbar facet arthropathy. He has increasing pain in his lumbar spine worse with extension and twisting. He has done well with 2 previous diagnostic medial branch blocks of L4-5 and L5-S1. He presents for RF ablation of the same levels today. Procedure Details:: Lumbar RFA informed consent was obtained and the risk and benefits of the procedure was explained to the patient. Patient was placed prone on the procedure table. The patient was prepped and draped in sterile fashion. C-arm fluoroscopy was used to view the lumbar spine. The skin and subcutaneous tissues were anesthetized using lidocaine. I placed 20-gauge RF needles into the facet joints of L4-5 and L5-S1 bilaterally. We underwent sensory stimulation. There is good sensory stimulation at 0.8 V. We underwent motor stimulation. There is no motor stimulation at 2 V. We then anesthetized these levels with lidocaine and Depo- Medrol. I used a total of 80 mg Depo-Medrol for both levels. I then burned both levels of L4-5 and L5-S1 facet joint/medial branches bilaterally for 4 minutes at 80 ?C. Patient tolerated the procedure well with no complication. Plan and Disposition:: We will follow-up with him in 2 weeks. Will reevaluate his symptoms at that time.
== END 2021-10-02 10:59 | disposition home or self-care (01) ==
LOC: SC.PAINP 10:06
PROVIDERS: PCP Internal Medicine Adolescent Medicine; Visit Provider Anesthesiology
DX: M51.36 Other intervertebral disc degeneration, lumbar region (principal); M46.96 Unspecified inflammatory spondylopathy, lumbar region; M47.816 Spondylosis without myelopathy or radiculopathy, lumbar region
CPT/HCPCS: 64635; 64636; J1040

== ENCOUNTER → 2021-10-16 13:38 | Outpatient (POV) | payer MEDICARE, SELFPAY ==
[2021-10-16 13:51] VITALS: BP 171/71; PULSE 59; RESP 20; BMI 23.1
--- NOTE | 2021-10-16 15:13 | A.OFFVIS_ITS ---
[facility] Pain Management SOAP Note Subjective:: Patient is a pleasant 81-year-old who presents today for follow-up. We are currently treating the patient for degenerative disc disease of lumbar spine with lumbar spondylosis, lumbar facet arthropathy. Patient rates his pain today a 0 out of 10. Patient states he has been able to increase his activity following this ablation and continues to have prolonged relief. Patient does use ibuprofen and Tylenol to help manage his pain. He has seen physical therapy and chiropractors in the past with minimal improvement. Patient is also tried etrb-fyp-[id number] creams with no improvement of his symptoms. Patient is not currently on any scheduled medications. His Pineda is [phone]. It has been reviewed and appropriate. Review of Systems: General: No recent weight changes, no fever, no sleep disturbances Respiratory: No cough, no shortness of air, no recurring pulmonary infections Cardiovascular/peripheral vascular: No chest pain, no palpitations, no edema, no shortness of breath Gastrointestinal: No new onset incontinence, normal bowel movements reported Genitourinary: No new onset incontinence Musculoskeletal: Low back pain Psychiatric: [Normal mood/affect] Neurological: [Denies weakness in extremities], [denies balance issues] Objective:: Physical Exam: General: Alert and oriented x3, no acute distress, pleasant and cooperative Lungs: Respirations even and unlabored, symmetrical chest expansion Eyes: PERRL Musculoskeletal: Flexion and extension of lumbar [spine] somewhat guarded secondary to pain, [antalgic gait noted] Neurological: Speech clear, no gross sensory deficit Assessment:: Degenerative disc disease of lumbar spine with lumbar spondylosis, lumbar facet arthropathy Plan:: Patient continues to have significant improvement of his pain symptoms following the last lumbar ablation on 09/04/2021. At this time the patient is not requiring any additional injections. We will schedule the patient for a 1 month follow-up. He will return to clinic in 1 month for reevaluation of symptoms. Patient has been instructed to contact the clinic with any concerns before the next appointment. Dr. Crowder has reviewed this note and agrees with this plan of care. This note was dictated using voice recognition software and make contain errors or omissions. [facility] Social History Smoking Status: Current every day smoker tobacco type: cigarettes packs per day: 1 alcohol intake: never substance use type: denies use current occupational status: other Travel in the last 8 weeks: None household members: spouse housing: house current occupational exposures/hazards: No caffeine: Yes
== END ==
PROVIDERS: Visit Provider Nurse Practitioner Family
DX: M51.36 Other intervertebral disc degeneration, lumbar region (principal); M47.816 Spondylosis without myelopathy or radiculopathy, lumbar region; Z72.0 Tobacco use
CPT/HCPCS: 99212; G0463

== ENCOUNTER → 2021-11-15 13:31 | Outpatient (POV) | payer MEDICARE, SELFPAY ==
[2021-11-15 13:43] VITALS: BP 168/75; PULSE 62; RESP 18; TEMP 36.8; O2SAT 97; BMI 26.9
--- NOTE | 2021-11-15 13:46 | EXP.PAIN.SOA ---
[facility] Pain Management SOAP Note Subjective:: Patient is a pleasant 81-year-old male who presents for follow-up. We are currently treating the patient for degenerative disc disease of lumbar spine with lumbar spondylosis and lumbar facet arthropathy. Today the patient rates his pain a 2 out of 10. Patient states the pain is in his low back however it has been significantly improved following his lumbar RFA. Patient states he has been able to increase his activity and continues to have prolonged relief. Patient does use ibuprofen and Tylenol as needed to help manage with his occasional pain symptoms. Patient has saw physical therapy and chiropractors in the past with minimal improvement. Patient is not currently on any scheduled medications. His Pineda is [phone]. It has been reviewed and appropriate. Review of Systems: General: No recent weight changes, no fever, no sleep disturbances Respiratory: No cough, no shortness of air, no recurring pulmonary infections Cardiovascular/peripheral vascular: No chest pain, no palpitations, no edema, no shortness of breath Gastrointestinal: No new onset incontinence, normal bowel movements reported Genitourinary: No new onset incontinence Musculoskeletal: Low back pain Psychiatric: [Normal mood/affect] Neurological: [Denies weakness in extremities], [denies balance issues] Objective:: Physical Exam: General: Alert and oriented x3, no acute distress, pleasant and cooperative Lungs: Respirations even and unlabored, symmetrical chest expansion Eyes: PERRL Musculoskeletal: Flexion and extension of lumbar [spine] somewhat guarded secondary to pain, [antalgic gait noted] Neurological: Speech clear, no gross sensory deficit Assessment:: Degenerative disc disease of lumbar spine with lumbar spondylosis, lumbar facet arthropathy Plan:: Patient continues to have significant and prolonged improvement in his back pain symptoms following his lumbar RFA. At this time the patient does not need any additional injective therapy. We will follow-up with the patient in 3 months. Patient will return to clinic in 3 months for reevaluation of his symptoms and follow-up. Patient has been instructed to contact the clinic with any concerns before the next appointment. Dr. Crowder has reviewed this note and agrees with this plan of care. This note was dictated using voice recognition software and make contain errors or omissions. [facility] Social History Smoking Status: Current every day smoker tobacco type: cigarettes packs per day: 1 alcohol intake: never substance use type: denies use current occupational status: retired Travel in the last 8 weeks: None household members: spouse housing: house current occupational exposures/hazards: No caffeine: Yes
== END ==
PROVIDERS: Visit Provider Nurse Practitioner Family
DX: M51.36 Other intervertebral disc degeneration, lumbar region (principal); M47.26 Other spondylosis with radiculopathy, lumbar region
CPT/HCPCS: 99212; G0463

== ENCOUNTER → 2022-01-21 13:56 | Outpatient (CLI) | payer MEDICARE, SELFPAY ==
--- NOTE | 2022-01-21 14:01 | XR_ITS ---
FINAL REPORT CLINICAL HISTORY: edema of right ankle weightbearing views FINDINGS: RIGHT ANKLE: Three views of the right ankle were obtained. There are chronic fractures of the distal tibia and fibula. There are moderate degenerative changes of the ankle and midfoot. Calcaneal spurs are present. There is lateral soft tissue swelling. IMPRESSION: Moderate degenerative change with lateral soft tissue swelling. Reviewed, Interpreted and Dictated by Schuyler Hazel III, MD Transcribed by Mike Silva Authenticated and . [facility]
--- NOTE | 2022-01-21 14:01 | XR_ITS ---
FINAL REPORT CLINICAL HISTORY: swelling, weightbearing views. FINDINGS: 3 weight-bearing views of the right foot were obtained. There is no acute fracture or dislocation. There are moderate degenerative changes. There are calcaneal spurs. The soft tissues are unremarkable. IMPRESSION: Moderate degenerative change. Reviewed, Interpreted and Dictated by Schuyler Hazel III, MD Transcribed by Mike Silva Authenticated and . [facility]
[2022-01-21 15:15] LABS: Basophils # 0.1 K/mm3 (0-0.2); Basophils % 0.8 % (0.1-2.0); Eosinophils # 0.1 K/mm3 (0.0-0.4); Hematocrit 48.6 % (42.0-52.0); Hemoglobin 15.6 g/dL (14.1-18.0); Lymphocytes # 2.2 K/mm3 (0.7-4.5); Lymphocytes % 21.4 % (10-50); Mean Corpuscular HGB Conc 32.2 g/dL (31.8-35.4); Mean Corpuscular Hemoglobin 31.8 pg (27.0-31.2); Mean Corpuscular Volume 98.8 fl (80-94); Mean Platelet Volume 8.5 fl (7.4-10.4); Monocytes # 0.8 K/mm3 (0.1-1.0); Neutrophils # 7.2 K/mm3 (1.8-7.8); Neutrophils % 68.8 % (37.0-80.0); Platelet Count 272 K/mm3 (142-424); Red Blood Count 4.91 M/mm3 (4.60-6.20); Red Cell Distribution Width 12.9 % (11.5-17.5); White Blood Count 10.5 K/mm3 (4.8-10.8)
[2022-01-21 15:40] LABS: Hemoglobin A1C 8.7 % (4.0-6.0)
[2022-01-21 15:50] LABS: Erythrocyte Sedimentation Rate 22 mm/hr (0-20)
[2022-01-21 16:18] LABS: Alanine Aminotransferase 27 U/L (12-78); Albumin Level 4.3 g/dl (3.5-5.0); Albumin/Globulin Ratio 1.7 (1.1-1.8); Alkaline Phosphatase 89 U/L (38-126); Anion Gap 16.5 mEq/L (5-15); Aspartate Amino Transferase 27 U/L (17-59); Bilirubin,Total 0.5 mg/dl (0.2-1.3); Blood Urea Nitrogen 19 mg/dl (9-20); Calcium 9.8 mg/dl (8.4-10.2); Carbon Dioxide 28 mmol/L (22.0-30.0); Chloride 99 mmol/L (98-107); Estimated Glomerular Filt Rate 65 ml/min (>60); GFR (African American) 78 ML/MIN (>60); Globulin 2.6 g/dL (1.3-3.2); Glucose 266 mg/dl (74-100); Potassium 4.5 mmoL/L (3.5-5.1); Sodium 139 mmol/L (136-145); Total Protein,Serum 6.9 g/dl (6.3-8.2); Uric Acid 3.4 mg/dl (3.5-8.5)
[2022-01-21 16:23] LABS: C-Reactive Protein 17.4 mg/L (0-4)
== END ==
PROVIDERS: PCP Internal Medicine Adolescent Medicine; Visit Provider Nurse Practitioner Family
DX: M25.471 Effusion, right ankle (principal); E11.9 Type 2 diabetes mellitus without complications; Z79.4 Long term (current) use of insulin; M25.571 Pain in right ankle and joints of right foot
CPT/HCPCS: 36415; 73610; 73630; 80053; 83036; 84550; 85025; 85651; 86140

== ENCOUNTER → 2022-05-15 15:49 | Outpatient (POV) | payer MEDICARE, SELFPAY ==
--- NOTE | 2022-05-15 16:03 | A.OFFVIS_ITS ---
[facility] Pain Management SOAP Note Subjective:: Patient is a pleasant 82-year-old male who presents for follow-up.? We are currently treating the patient for degenerative disc disease of lumbar spine with lumbar spondylosis and lumbar facet arthropathy.? Today the patient rates his pain a 8 out of 10.? Patient states the pain is in his low back and describes it as an aching, throbbing sensation that is worse with increased activity. Patient denies any new trauma or injury. Patient denies any change location or type of pain he experiences. Patient had previously had a lumbar RFA that did provide significant relief for several months. He does use [id number] ibuprofen and Tylenol as needed however only minimal improvements has been noticed. Patient has had physical therapy in the past along with continued at home exercising and stretching techniques for longer than 6 weeks with no additional improvement. Patient is interested in possibly doing the spinal cord stimulator trial or pain pump trial. Patient is not currently on any scheduled medications.? His Pineda has been reviewed and appropriate. Review of Systems: General: No recent weight changes, no fever, no sleep disturbances Respiratory: No cough, no shortness of air, no recurring pulmonary infections Cardiovascular/peripheral vascular: No chest pain, no palpitations, no edema, no shortness of breath Gastrointestinal: No new onset incontinence, normal bowel movements reported Genitourinary: No new onset incontinence Musculoskeletal: Low back pain Psychiatric: [Normal mood/affect] Neurological: [Denies weakness in extremities], [denies balance issues] Objective:: Physical Exam: General: Alert and oriented x3, no acute distress, pleasant and cooperative Lungs: Respirations even and unlabored, symmetrical chest expansion Eyes: PERRL Musculoskeletal: Flexion and extension of lumbar [spine] somewhat guarded secondary to pain, [antalgic gait noted] Neurological: Speech clear, no gross sensory deficit Assessment:: Degenerative disc disease of lumbar spine with lumbar spondylosis, lumbar facet arthropathy Plan:: Patient is experiencing significant pain in his low back with limited range of motion of his lumbar spine. I will order the patient a psychiatric evaluation today and if he is deemed an appropriate candidate we will plan to proceed forward with the spinal cord stimulator or pain pump trial in the future. Risk and benefits of both of these devices were discussed with the patient and we will follow-up with him at the next visit for which device he would like to proceed forward with. Patient will return to clinic following his psychiatric evaluation for reevaluation of symptoms and plan of care. Patient has been instructed to contact the clinic with any concerns before the next appointment. Dr. Crowder has reviewed this note and agrees with this plan of care. This note was dictated using voice recognition software and make contain errors or omissions. [facility] Disclaimer: The information contained in this section may have been updated after the patient was seen, as this information can be updated by other users. Medical History Edema of right ankle Social History Smoking Status: Current every day smoker tobacco type: cigarettes packs per d ay: 1 alcohol intake: never substance use type: denies use current occupational status: retired Travel in the last 8 weeks: None household members: spouse housing: house current occupational exposures/hazards: No caffeine: Yes
== END ==
PROVIDERS: PCP Nurse Practitioner Family; Visit Provider Nurse Practitioner Family
DX: M51.36 Other intervertebral disc degeneration, lumbar region (principal); M47.816 Spondylosis without myelopathy or radiculopathy, lumbar region
CPT/HCPCS: 99212; G0463

== ENCOUNTER → 2022-06-10 14:00 | Outpatient (POV) | payer MEDICARE, SELFPAY ==
[2022-06-10 14:56] VITALS: BP 172/80; PULSE 60; RESP 20; BMI 26.7
--- NOTE | 2022-06-10 15:13 | EXP.PAIN.SOA ---
[facility] Pain Management SOAP Note Subjective:: Patient is a pleasant 82-year-old male who presents today for follow-up. We are currently treating the patient for degenerative disc disease of lumbar spine with lumbar radiculopathy symptoms, lumbar facet arthropathy, lumbar spondylosis. Today he rates his pain a 10 out of 10. Patient denies any new trauma or injury. Patient denies any change to location or type of pain he experiences. Patient has previously had 2 successful medial branch blocks of his lumbar spine at L4-5 and L5-S1. His last injection in September 2021 did provide 80 to 90% improvement lasting at least 6 months. Patient is interested in doing the lumbar RFA at today's visit. Patient does use ymcj-zkw-bkidtte Tylenol and ibuprofen with minimal relief. Patient has tried physical therapy in the past with no additional relief. He does continue to do at home exercising and stretching techniques for longer than 6 weeks with minimal improvement. 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 Patient does state his pain interferes with his ability to perform activities of daily living such as cooking and cleaning or even simple ambulation. Patient does state that his pain is made worse with activity such as bending lifting twisting. Patient is not on any scheduled medications. His Pineda is [phone]. Its been reviewed and appropriate. Review of Systems: General: No recent weight changes, no fever, no sleep disturbances Respiratory: No cough, no shortness of air, no recurring pulmonary infections Cardiovascular/peripheral vascular: No chest pain, no palpitations, no edema, no shortness of breath Gastrointestinal: No new onset incontinence, normal bowel movements reported Genitourinary: No new onset incontinence Musculoskeletal: Low back pain Psychiatric: [Normal mood/affect] Neurological: [Denies weakness in extremities], [denies balance issues] Objective:: Physical Exam: General: Alert and oriented x3, no acute distress, pleasant and cooperative Lungs: Respirations even and unlabored, symmetrical chest expansion Eyes: PERRL Musculoskeletal: Flexion and extension of lumbar [spine] somewhat guarded secondary to pain, [antalgic gait noted] positive Kemps test Neurological: Speech clear, no gross sensory deficit Assessment:: LumbarDegenerative disc disease of lumbar spine with lumbar radiculopathy symptoms, facet arthropathy, lumbar spondylosis Plan:: Patient is experiencing significant pain in his low back with limited range of motion of his lumbar spine. Patient did have a positive Kemps test and 2 successful diagnostic medial branch blocks of his lumbar spine in the past that did provide 80 to 90% relief with his last injection lasting upwards of 6 months or more. I have discussed with the patient that he may benefit from a lumbar RFA. Risk and benefits were discussed with the patient and he would like to proceed forward with this plan of care. Patient is not on any blood thinners. We will schedule him for a lumbar RFA bilaterally at L4-L5 and L5-S1. Patient has been instructed to contact the clinic with any concerns before the next appointment. Dr. Crowder has reviewed this note and agrees with this plan of care. This note was dictated using voice recognition software and make contain errors or omissions. [facility] Disclaimer: The information contained in this section may have been updated after the patient was seen, as this information can be updated by other users. Medical History Edema of right ankle Social History Smoking Status: Current every day smoker tobacco type: cigarettes packs per day: 1 alcohol intake: never substance use type: denies use current occupational status: other Travel in the last 8 weeks: None household members: spouse housing: house current occupational exposures/hazards: No caffeine: Yes
== END ==
PROVIDERS: PCP Nurse Practitioner Family; Visit Provider Nurse Practitioner Family
DX: M51.16 Intervertebral disc disorders with radiculopathy, lumbar region (principal); M47.26 Other spondylosis with radiculopathy, lumbar region
CPT/HCPCS: 99212; G0463

== ENCOUNTER 2022-06-18 13:35 | Day surgery (SDC) | payer MEDICARE, SELFPAY ==
[2022-06-18 13:53] VITALS: BP 145/114; PULSE 60; RESP 18; TEMP 36.5; O2SAT 97; BMI 23.1
[2022-06-18 14:24] VITALS: BP 169/73; PULSE 60; RESP 18; O2SAT 97
--- NOTE | 2022-06-18 14:24 | P.PCN_ITS ---
Procedure Date: 06/18/22 Time: 14:15 Anesthesiologist:: Caleb Jiang CRNA Complications:: None Pre-procedure Diagnosis:: Degenerative disc disease lumbar spine multilevels. Lumbar radiculopathy. Post-procedure Diagnosis:: Same. Indications for Procedure:: Very pleasant 82-year-old male comes our clinic today for bilateral lumbar radiofrequency ablation L4-5, L5-S1. Patient has significant improvement with his medial branch blocks at the same levels. Patient has difficulty with low b ack pain all the time. Pain is significantly worse when standing for any length of time. Sitting for any length of time increases pain as well Procedure Details:: Informed consent was obtained and the risk and benefits of the procedure was explained to the patient. Patient was placed prone on the procedure table. The patient was prepped and draped in sterile fashion. C-arm fluoroscopy was used to view the lumbar spine. The skin and subcutaneous tissues were anesthetized using lidocaine. I placed 20-gauge RF needles into the facet joints of L4-L5 and L5-S1 on the left side. We underwent sensory stimulation. There is good sensory stimulation at 0.8 V. We underwent motor stimulation. There is no motor stimulation at 2 V. We then anesthetized these levels with lidocaine and Depo- Medrol. I used a total of 40 mg Depo-Medrol for all 3 levels. I then burned all 3 levels of L4-5 and L5-S1 on the left side for 4 minutes at 80 ?C. Patient tolerated the procedure well with no complication. Plan and Disposition:: Patient was discharged without incident
== END 2022-06-18 14:24 | disposition home or self-care (01) ==
PROVIDERS: PCP Nurse Practitioner Family; Visit Provider Nurse Anesthetist, Certified Registered
DX: M51.16 Intervertebral disc disorders with radiculopathy, lumbar region (principal); M47.896 Other spondylosis, lumbar region
CPT/HCPCS: 64635; 64636

== ENCOUNTER → 2022-07-03 13:11 | Outpatient (POV) | payer MEDICARE, SELFPAY ==
--- NOTE | 2022-07-03 14:02 | EXP.PAIN.SOA ---
[facility] Pain Management SOAP Note Subjective:: Patient is a pleasant 82-year-old male who presents today for follow-up of lumbar RFA L4-L5 and L5-S1 on the left side on 06/18/2022. We are currently treating the patient for degenerative disc disease of lumbar spine with lumbar radiculopathy symptoms, lumbar facet arthropathy, lumbar spondylosis. Today he states that he did not have any additional improvement following this procedure. He rates his pain a 9 out of 10. Patient denies any new trauma or injury. Patient denies any change location or type of pain he experiences. Previously he did have a lumbar RFA that provided 80 to 90% relief lasting 6 months. Patient does use [id number] Tylenol and ibuprofen along with heat and ice and topicals with minimal relief. Patient has done physical therapy in the past with no additional relief and continues to do at home exercising and stretching techniques for longer than 6 weeks. Patient is not currently on any scheduled medications. His Pineda is [phone]. Its been reviewed and appropriate. Review of Systems: General: No recent weight changes, no fever, no sleep disturbances Respiratory: No cough, no shortness of air, no recurring pulmonary infections Cardiovascular/peripheral vascular: No chest pain, no palpitations, no edema, no shortness of breath Gastrointestinal: No new onset incontinence, normal bowel movements reported Genitourinary: No new onset incontinence Musculoskeletal: Low back pain Psychiatric: [Normal mood/affect] Neurological: [Denies weakness in extremities], [denies balance issues] Objective:: Physical Exam: General: Alert and oriented x3, no acute distress, pleasant and cooperative Lungs: Respirations even and unlabored, symmetrical chest expansion Eyes: PERRL Musculoskeletal: Flexion and extension of lumbar [spine] somewhat guarded secondary to pain, [antalgic gait noted] Neurological: Speech clear, no gross sensory deficit Assessment:: Degenerative disc disease of lumbar spine with lumbar radiculopathy symptoms, lumbar facet arthropathy, lumbar spondylosis Plan:: Patient continues to experience significant pain in his low back with limited range of motion. I have discussed with the patient that he may benefit from a lumbar epidural steroid injection or an intrathecal pain pump trial in the future. Educational handouts on the pump were given during today's visit. I will order the patient [place] 5 mg daily and provide a 1 month supply of this medication. Patient will return to clinic in 1 month for reevaluation of symptoms, medication refill if indicated and follow-up. Patient has been advised of risks of oversedation with the prescribed medication. Narcan has been offered to the patient in the event of oversedation. Patient has been advised that a family member should also be educated regarding administration of Narcan. Patient has been instructed to contact the clinic with any concerns before the next appointment. Dr. Crowder has reviewed this note and agrees with this plan of care. This note was dictated using voice recognition software and make contain errors or omissions. [facility] Disclaimer: The information contained in this section may have been updated after the patient was seen, as this information can be updated by other users. Medical History Edema of right ankle Social History Smoking Status: Current every day smoker tobacco type: cigarettes packs per day: 1 alcohol intake: never substance use type: denies use current occupational status: other Travel in the last 8 weeks: None household members: spouse housing: house current occupational exposures/hazards: No caffeine: Yes
[2022-07-03 14:33] VITALS: BP 156/79; PULSE 62; RESP 18; O2SAT 98; BMI 24.2
== END | disposition home or self-care (01) ==
PROVIDERS: PCP Nurse Practitioner Family; Visit Provider Nurse Practitioner Family
DX: M51.16 Intervertebral disc disorders with radiculopathy, lumbar region (principal); M47.26 Other spondylosis with radiculopathy, lumbar region
CPT/HCPCS: 99212; G0463

== ENCOUNTER 2023-08-17 18:35 | Emergency (ER) | payer MEDICARE, SELFPAY ==
[2023-08-17] MEDS: ETOMIDATE 40MG/20ML VIAL 20 MG IV (18:40)
[2023-08-17] MEDS: SUCCINYLCHOLINE 20MG/ML 10 ML MDV 100 MG IV (18:44)
--- NOTE | 2023-08-17 18:45 | ECG_ITS ---
APPROVED REPORT Exam: Resting ECG HR:88 bpm ECG Measurements Heart Rate 88 AXES QRSd 101 QRS 52 QT 403 T 58 QTc 449 Conclusion Sinus arrhythmia MINIMAL ST DEPRESSION [0.025+ mV ST DEPRESSION] ABNORMAL RHYTHM ECG Electronically signed by : ARABELLA TERRELL, 08/17/2023 23:24:02
--- OUTSIDE RECORDS SUMMARY | 2023-08-17 18:58 | XMS_ITS | Continuity of Care Document ---
Author Name Unknown Address [address] [place] [address] [phone] Organization [facility] Phone Care Team Providers Care Grain Mill Products Inspector Name Role Phone MAYTE DANIEL Primary Attending MAYTE DANIEL Primary Care MAYTE DANIEL Admitting MAYTE DANIEL Unavailable ALLERGIES AND ADVERSE REACTIONS ALLERGIES AND ADVERSE REACTIONS Code System Allergy Substance Adverse Reaction Date Reaction (Severity) Comment Status Reported By Updated By No Known Allergies RESULTS Patient: ALVAREZ Hathaway JR Date of : April 10 LABORATORY RESULTS ORDER 100: HEMOGLOBIN A1C (L OINC: 4548-4) ORDER DATE: May 09, 2023 6:25:00 PM UTC Specimen Source: Whole Blood Specimen Type: Whole blood s ample PERFORMING LAB: [address] [id number] Result Comment: Final Result Date: May 09, 2023 8:49:00 PM UT (TECH: HC) LOINC TEST FLAG RESULT REFERENCE RANGE UPDA RIKI BY 4548-4 Hemoglobin A1c/Hemoglobin.tot al in Blood H 7.7 % 4.5 % - 6.2 % May 09, 2023 8:49:00 PM [place] (TECH: HC) 81281-2 Glucose mean value [Mass/volume] in Blood Estimated from glycated hemoglobin H 174 mg/dl 82 mg/dl - 131 mg/dl May 09, 2023 8:49:00 PM [facility] (TECH: HC) ORDER 200: THYROID STIMULATI NG HORMONE (LOINC: 3016-3) ORDER DATE: May 09, 2023 6:25:00 PM UTC Specimen Source: Serum/Plasm a Specimen Type: Acellular blo od (serum or plasma) specimen PERFORMING LAB: [address] [id number] Result Comment: Final Result Date: May 09, 2023 8:49:00 PM UTC (TECH: HC) LOINC TEST FLAG RESULT REFERENCE RANGE UPDA RIKI BY 3016-3 Thyrotropin [Units/volume] in Serum or Plasma N 3.78 mIU/mL 0.34 mIU/mL - 4.80 mIU/mL May 09, 2023 8:49:00 PM UTC (TECH: HC) ORDER 300: COMP METABOLIC PA MAURICE (LOINC: 00086-4) ORDER DATE: May 09, 2023 6:25:00 PM UTC Specimen Source: Serum/Plasm a Specimen Type: Acellular blo od (serum or plasma) specimen PERFORMING LAB: [address] [id number] Result Comment: Final Result Date: May 09, 2023 8:49:00 PM UT (TECH: [place]) LOINC TEST FLAG RESULT REFERENCE RANGE UPDA RIKI BY 2951-2 Sodium [Moles/volume ] in Serum or Plasma N 141 mmol/L 136 mmol/L - 145 mmol/L May 09, 2023 8:49:00 PM UTC (TECH: HC) 2823-3 Potassium [Moles/vol ume] in Serum or Plasma N 3.5 mmol/L 3.5 mmol/L - 5.1 mmol/L May 09, 2023 8:49:00 PM UTC (TECH: HC) 2075-0 Chloride [Moles/volu me] in Serum or Plasma N 102 mmol/L 98 mmol/L - 107 mmol/L May 09, 2023 8:49:00 PM UTC (TECH: HC) 8-9 Carbon dioxide, tota l [Moles/volume] in Serum or Plasma N 25 mmol/L 21 mmol/L - 32 mmol/L May 09, 2023 8:49:00 PM UTC (TECH: [place]) 41783-9 Anion gap 3 in Serum or Plasma N 14.0 May 09, 2023 8:49:00 PM UTC (TECH: HC) 2345-7 Glucose [Mass/volume ] in Serum or Plasma H 181 mg/dL 70 mg/dL - 110 mg/dL May 09, 2023 8:49:00 PM UTC (TECH: HC) 3094-0 Urea nitrogen [Mass/volume] in Serum or Plasma N 17 mg/dL 7 mg/dL - 18 mg/dL May 08 8:49:00 PM UT (TECH: [place]) 2160-0 Creatinine [Mass/vol ume] in Serum or Plasma H 1.4 mg/dL 0.8 mg/dL - 1.3 mg/dL May 09, 2023 8:49:00 PM [facility] (TECH: [place]) 3097-3 Urea nitrogen/Creati nine [Mass Ratio] in Serum or Plasma N 12.1 Ratio 9 Ratio - 21 Ratio May 08 8:49:00 PM [facility] (TECH: [employer]) 51089-6 Glomerular filtratio n rate/1.73 sq M.predicted by Creatinine-based formula (MDRD) L 52 mL/min >60 May 09, 2023 8:49:00 PM [facility] (TECH: [employer]) 2885-2 Protein [Mass/volume ] in Serum or Plasma N 6.6 g/dL 6.4 g/dL - 8.2 g/dL May 08 8:49:00 PM [facility] (TECH: [employer]) 1751-7 Albumin [Mass/volume ] in Serum or Plasma N 3.4 g/dL 3.4 g/dL - 5.0 g/dL May 08 8:49:00 PM [facility] ([employer]: [employer]) 91122-3 Calcium [Mass/volume ] in Serum or Plasma N 8.9 mg/dL 8.5 mg/dL - 10.1 mg/dL May 09, 2023 8:49:00 PM [facility] (TECH: [employer]) 70614-4 Calcium [Mass/volume ] corrected for total protein in Serum or Plasma N 9.4 mg/dL 8.5 mg/dL - 1 0.1 mg/dL May 09, 2023 8:49:00 PM [facility] (TECH: [employer]) 1975-2 Bilirubin.total [Mass/volume] in Serum or Plasma N 0.4 mg/dL 0.4 mg/dL - 1.5 mg/dL May 09, 2023 8:49:00 PM [facility] (TECH: [employer]) 1920-8 Aspartate aminotrans ferase [Enzymatic activity/volume] in Serum or Plasma L 13 U/L 15 U/L - 37 U/L May 09, 2023 8:49:00 PM [facility] (TECH: [employer]) 1742-6 Alanine aminotransfe rase [Enzymatic activity/volume] in Serum or Plasma L 6 U/L 12 U/L - 78 U/L May 09, 2023 8:49:00 PM [facility] (TECH: [employer]) 6768-6 Alkaline phosphatase [Enzymatic activity/volume] in Serum or Plasma N 71 U/L May 09, 2023 8:49:00 PM [facility] (TECH: [employer]) LABORATORY NARRATIVE RESULTS Information is not available RADIOLOGY RESULTS Information is not available PATHOLOGY NARRATIVE RESULTS Information is not available MICROBIOLOGY RESULTS No Micro Labs/Results Exist for Patient BLOOD ADMIN RESULTS Information is not available MEDICATIONS HOME MEDICATIONS Status RXNORM NDC Medication Dose Route Frequency Dates Comments Reported By Updated By Drug Treatment Unknown DISCHARGE MEDICATIONS Status RXNORM NDC Medication Dose Route Frequency Dates Comments Physician Updated By No Discharge Medication Info rmation Available INPATIENT MEDICATIONS Status RXNORM NDC Medication Dose Route Frequency Rat e Quantity Dates Comments Physician Updated By No Inpatient Medication Info rmation Available SOCIAL HISTORY SOCIAL HISTORY SNOMED-CT Social History Element Description Effective Dates Offered Cessation Comment UpdatedBy [id number] Historical Tobacco smoking status Current Every Day Smoker 1ppd [id number] on December 27, 2022 2:00:26 PM [facility] SOCIAL HISTORY - Gender Sex: Male SOCIAL HISTORY - Status : status i nformation is not available Intention in Next Year: intention information is not available SOCIAL HISTORY - Sexual Behavior Sexual Orientation Gender Identity SNOMED-CT Description SNO MED -CT Description Activity Level No of Partners Partner Type UpdatedBy Information is not available HEALTH CONCERNS Problems Concern Status Health Concern problem infor mation not available. Smoking Status Status Years Used Consumed packs p er day Health Concern smoking histo ry information not available. Family History Concern Status Health Concern family histor y information not available. ENCOUNTERS ENCOUNTER INFORMATION Reason for Visit E11.65 Admission May 09, 2023 6:24:[address] [address] Discharge May 09, 2023 7:24:00 PM [facility] DI SCHARGED TO HOME OR SELF CARE ENCOUNTER DIAGNOSES Notes information is not john ilable. Code System Diagnosis Onset Date Diagnosis information is not available. 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 [id number] on May 12, 2023 12:32:15 PM [facility] E78.5 ICD10 HYPERLIPIDEMIA, UNSPECIFIED [id number] on May 12, 2023 12:32:15 PM [facility] CARE TEAM Care Grain Mill Products Inspector Role MAYTE DANIEL Primary Attending MAYTE DANIEL Primary Care MAYTE DANIEL Admitting MAYTE DANIEL Referring CARE TEAM CARE junction maker Role on Team Status Start Date End Date Update d By FREDY HU MD Referring normal May 09, 2023 4:00:00 AM [facility] May 09, 2023 4:00:00 AM [facility] [id number] on May 10, 2023 6:22:48 PM [facility] FREDY HU MD Attending normal May 09, 2023 4:00:00 AM [facility] May 09, 2023 4:00:00 AM [facility] [id number] on May 10, 2023 6:22:48 PM [facility] FREDY HU MD Admitting normal May 09, 2023 4:00:00 AM [facility] May 09, 2023 4:00:00 AM [facility] [id number] on May 10, 2023 6:22:48 PM [facility] FREDY HU MD PCP normal May 09, 2023 6:25:10 PM [facility] May 09, 2023 4:00:00 AM [facility] [id number] on May 10, 2023 6:22:48 PM [facility]
--- OUTSIDE RECORDS SUMMARY | 2023-08-17 18:58 | XMS_ITS | Continuity of Care Document ---
Author Name Unknown Address [address] [place] [phone] Organization [facility] Phone Care Team Providers Care Cleaner Name Role Phone MAYTE DANIEL Primary Attending [...] Type: Whole blood s ample PERFORMING LAB: [address] [id number] Result Comment: Final Result Date: May 09, 2023 8:49:00 PM UT (TECH: HC) LOINC TEST FLAG RESULT REFERENCE RANGE UPDA RIKI BY 4548-4 Hemoglobin A1c/Hemoglobin.tot al in Blood H 7.7 % 4.5 % - 6.2 % May 09, 2023 8:49:00 PM [place] (TECH: HC) 52645-0 Glucose mean value [Mass/volume] in Blood Estimated from glycated hemoglobin H 174 mg/dl 82 mg/dl - 131 mg/dl May 09, 2023 8:49:00 PM UT (TECH: HC) ORDER 200: THYROID STIMULATI NG HORMONE (LOINC: 3016-3) ORDER DATE: May 09, 2023 6:25:00 PM UTC Specimen Source: Serum/Plasm a Specimen Type: Acellular blo od (serum or plasma) specimen PERFORMING LAB: [address] [id number] Result Comment: Final Result Date: May 09, 2023 8:49:00 PM UTC (TECH: HC) LOINC TEST FLAG RESULT REFERENCE RANGE UPDA RIKI BY 3016-3 Thyrotropin [Units/volume] in Serum or Plasma N 3.78 mIU/mL 0.34 mIU/mL - 4.80 mIU/mL May 09, 2023 8:49:00 PM UTC (TECH: HC) ORDER 300: COMP METABOLIC PA MAURICE (LOINC: 06478-4) ORDER DATE: May 09, 2023 6:25:00 PM UTC Specimen Source: Serum/Plasm a Specimen Type: Acellular blo od (serum or plasma) specimen PERFORMING LAB: [address] [id number] Result Comment: Final Result Date: May 09, 2023 8:49:00 PM UT (TECH: [place]) LOINC TEST FLAG RESULT REFERENCE RANGE UPDA [...] May 09, 2023 8:49:00 PM UTC (TECH: [place]) 39318-0 Anion gap 3 in Serum or Plasma N 14.0 May 09, 2023 8:49:00 PM UTC (TECH: HC) 2345-7 Glucose [Mass/volume ] in Serum or Plasma H 181 mg/dL 70 mg/dL - 110 mg/dL May 09, 2023 8:49:00 PM UTC (TECH: HC) 3094-0 Urea nitrogen [Mass/volume] in Serum or Plasma N 17 mg/dL 7 mg/dL - 18 mg/dL May 08 8:49:00 PM UT (TECH: [place]) 2160-0 Creatinine [Mass/vol ume] in Serum or Plasma H 1.4 mg/dL 0.8 mg/dL - 1.3 mg/dL May 09, 2023 8:49:00 PM [facility] (TECH: [place]) 3097-3 Urea nitrogen/Creati nine [Mass Ratio] in Serum or Plasma N 12.1 Ratio 9 Ratio - 21 Ratio May 08 8:49:00 PM [facility] (TECH: [place]) 78033-9 Glomerular filtratio n rate/1.73 sq M.predicted by Creatinine-based formula (MDRD) L 52 mL/min >60 May 09, 2023 8:49:00 PM [facility] (TECH: [place]) 2885-2 Protein [Mass/volume ] in Serum or Plasma N 6.6 g/dL 6.4 g/dL - 8.2 g/dL May 08 8:49:00 PM [facility] (TECH: [place]) 1751-7 Albumin [Mass/volume ] in Serum or Plasma N 3.4 g/dL 3.4 g/dL - 5.0 g/dL May 08 8:49:00 PM [facility] ([place]: [place]) 01079-1 Calcium [Mass/volume ] in Serum or Plasma N 8.9 mg/dL 8.5 mg/dL - 10.1 mg/dL May 09, 2023 8:49:00 PM [facility] (TECH: [place]) 36865-1 Calcium [Mass/volume ] corrected for total protein in Serum or Plasma N 9.4 mg/dL 8.5 mg/dL - 1 0.1 mg/dL May 09, 2023 8:49:00 PM [facility] (TECH: [place]) 1975-2 Bilirubin.total [Mass/volume] in Serum or Plasma N 0.4 mg/dL 0.4 mg/dL - 1.5 mg/dL May 09, 2023 8:49:00 PM [facility] (TECH: [place]) 1920-8 Aspartate aminotrans ferase [Enzymatic activity/volume] in Serum or Plasma L 13 U/L 15 U/L - 37 U/L May 09, 2023 8:49:00 PM [facility] (TECH: [place]) 1742-6 Alanine aminotransfe rase [Enzymatic activity/volume] in Serum or Plasma L 6 U/L 12 U/L - 78 U/L May 09, 2023 8:49:00 PM [facility] (TECH: [place]) 6768-6 Alkaline phosphatase [Enzymatic activity/volume] in Serum or Plasma N 71 U/L May 09, 2023 8:49:00 PM [facility] (TECH: [place]) LABORATORY NARRATIVE RESULTS Information is not available [...] Description Effective Dates Offered Cessation Comment UpdatedBy [id number] Historical Tobacco smoking status Current Every Day Smoker 1ppd [id number] on December 27, 2022 2:00:26 PM [facility] SOCIAL HISTORY - Gender Sex: Male SOCIAL [...] E11.65 Admission May 09, 2023 6:24:[address] [address] Discharge May 09, 2023 7:24:00 PM [facility] DI SCHARGED TO HOME OR SELF CARE ENCOUNTER DIAGNOSES Notes information is not john ilable. Code System Diagnosis Onset Date Diagnosis information is not available. ABSTRACT DIAGNOSES Code System Diagnosis Updated By Abstract Diagnosis informati on is not available. CARE TEAM Care Cleaner Role MAYTE DANIEL Primary Attending MAYTE DANIEL Primary Care MAYTE DANIEL Admitting MAYTE DANIEL Referring CARE TEAM CARE clay temperer Role on Team Status Start Date End Date Update d By FREDY HU MD Referring normal May 09, 2023 4:00:00 AM [facility] May 09, 2023 7:24:00 PM [facility] [id number] on May 10, 2023 6:22:48 PM [facility] FREDY HU MD Attending normal May 09, 2023 4:00:00 AM [facility] May 09, 2023 7:24:00 PM [facility] [id number] on May 10, 2023 6:22:48 PM [facility] FREDY HU MD Admitting normal May 09, 2023 4:00:00 AM [facility] May 09, 2023 7:24:00 PM [facility] [id number] on May 10, 2023 6:22:48 PM [facility] FREDY HU MD PCP normal May 09, 2023 6:25:10 PM [facility] May 09, 2023 7:24:00 PM [facility] [id number] on May 10, 2023 6:22:48 PM [facility]
[2023-08-17 19:00] VITALS: RESP 20
--- NOTE | 2023-08-17 19:02 | CT_ITS ---
PROCEDURE INFORMATION: Exam: CTA Chest With Contrast Exam date and time: 08/17/2023 7:29 PM Age: 83 years old Clinical indication: Other: AMS; Additional info: AMS intubated TECHNIQUE: Imaging protocol: Computed tomographic angiography of the chest with contrast. Exam focused on the arteries. 3D rendering (Not supervised by radiologist): MIP and/or 3D reconstructed images were created by the technologist. Radiation optimization: All CT scans at this facility use at least one of these dose optimization techniques: automated exposure control; mA and/or kV adjustment per patient size (includes targeted exams where dose is matched to clinical indication); or iterative reconstruction. Contrast material: ISOVUE; Contrast volume: 170 ml; Contrast route: INTRAVENOUS (IV); COMPARISON: CT CHEST WO CON 07/18/2021 1:20 PM FINDINGS: Tubes, catheters and devices: Enteric tube extends to the mid stomach. Pulmonary arteries: No pulmonary emboli. Mild central pulmonary artery dilatation could be due to pulmonary hypertension. Aorta: Moderate thoracic aortic and proximal arch vessel atherosclerotic disease without aneurysm or dissection. Mild stenosis of the proximal left subclavian artery. Lungs: Mild emphysema. Bilateral lower lobe dependent consolidation. Mild bronchial wall thickening. Unchanged irregular 9 mm subpleural nodule in the lateral right upper lobe. Unchanged 8 mm subpleural nodule along the left major fissure. Pleural spaces: Unremarkable. No pneumothorax. No pleural effusion. Heart: Unremarkable. No cardiomegaly. No pericardial effusion. Coronary arteries: Severe coronary artery calcification. Lymph nodes: No adenopathy. Calcified right hilar lymph nodes. Bones/joints: Mild thoracic spine degenerative change. Soft tissues: Unremarkable. IMPRESSION: 1. No pulmonary embolism. 2. Bilateral lower lobe dependent consolidation is probably atelectasis. 3. Mild bronchial wall thickening could be due to bronchitis. 4. Endotracheal tube is in good position. 5. Severe coronary artery calcification. 6. Endotracheal tube terminates 4.9 cm from the gelacio.
--- NOTE | 2023-08-17 19:02 | CT_ITS ---
PROCEDURE INFORMATION: Exam: CTA Head With Contrast, Arteriography Exam date and time: 08/17/2023 7:24 PM Age: 83 years old Clinical indication: Other: AMS; Additional info: AMS intubated TECHNIQUE: Imaging protocol: Computed tomographic angiography of the head with contrast. Exam focused on the arteries. 3D rendering (Not supervised by radiologist): MIP and/or 3D reconstructed images were created by the technologist. Radiation optimization: All CT scans at this facility use at least one of these dose optimization techniques: automated exposure control; mA and/or kV adjustment per patient size (includes targeted exams where dose is matched to clinical indication); or iterative reconstruction. Contrast material: ISOVUE; Contrast volume: 170 ml; Contrast route: INTRAVENOUS (IV); COMPARISON: CT HEAD/BRAIN WO CON 08/17/2023 7:24 PM FINDINGS: ANTERIOR CIRCULATION: Right internal carotid artery: Moderate calcific atherosclerotic disease of the right intracranial ICA severe stenosis of the right ophthalmic segment. Right middle cerebral artery: No occlusion or significant stenosis. No aneurysm. Right anterior cerebral artery: No occlusion or significant stenosis. No aneurysm. Left internal carotid artery: Severe calcific and noncalcified irregular atherosclerotic disease of the left intracranial ICA resulting in severe stenosis of the cavernous and ophthalmic segments. Left middle cerebral artery: No occlusion or significant stenosis. No aneurysm. Left anterior cerebral artery: No occlusion or significant stenosis. No aneurysm. POSTERIOR CIRCULATION: Right vertebral artery: No occlusion or significant stenosis. No aneurysm. Left vertebral artery: No occlusion or significant stenosis. No aneurysm. Basilar artery: No occlusion or significant stenosis. No aneurysm. Right posterior cerebral artery: No occlusion or significant stenosis. No aneurysm. Left posterior cerebral artery: No occlusion or significant stenosis. No aneurysm. Brain: No definite mass, mass effect, or midline shift. Cerebral ventricles: No ventriculomegaly. Bones/joints: Unremarkable. No acute fracture. Soft tissues: Unremarkable. IMPRESSION: 1. 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 2. Severe calcific and noncalcified irregular atherosclerotic disease of the left intracranial ICA resulting in severe stenosis of the cavernous and ophthalmic segments.
--- NOTE | 2023-08-17 19:02 | CT_ITS ---
PROCEDURE INFORMATION: Exam: CT Head Without Contrast Exam date and time: 08/17/2023 7:24 PM Age: 83 years old Clinical indication: Altered mental status/memory loss; Additional info: AMS, intubated TECHNIQUE: Imaging protocol: Computed tomography of the head without contrast. Radiation optimization: All CT scans at this facility use at least one of these dose optimization techniques: automated exposure control; mA and/or kV adjustment per patient size (includes targeted exams where dose is matched to clinical indication); or iterative reconstruction. COMPARISON: CT ANGIO HEAD 08/17/2023 7:24 PM FINDINGS: Tubes, catheters and devices: Endotracheal tube and enteric tube seen at lower end of examination. Brain: There is moderate diffuse cerebral volume loss present. Multiple subcortical and deep hypoattenuating white matter foci are present, likely related to small vessel senescent changes and can also be seen with prior infectious / inflammatory insult, or prior traumatic events. No hyperattenuating foci are identified to suggest acute intracranial hemorrhage. Cerebral ventricles: No ventriculomegaly. Paranasal sinuses: Visualized sinuses are unremarkable. No fluid levels. Mastoid air cells: Visualized mastoid air cells are well aerated. Bones: Unremarkable. No acute fracture. Soft tissues: Unremarkable. IMPRESSION: 1. Multiple subcortical and deep hypoattenuating white matter foci are present, likely related to small vessel senescent changes and can also be seen with prior infectious / inflammatory insult, or prior traumatic events. 2. No hyperattenuating foci are identified to suggest acute intracranial hemorrhage.
--- NOTE | 2023-08-17 19:02 | CT_ITS ---
PROCEDURE INFORMATION: Exam: CT Abdomen And Pelvis With Contrast Exam date and time: 08/17/2023 7:29 PM Age: 83 years old Clinical indication: Other: AMS; Additional info: AMS intubated TECHNIQUE: Imaging protocol: Computed tomography of the abdomen and pelvis with contrast. Radiation optimization: All CT scans at this facility use at least one of these dose optimization techniques: automated exposure control; mA and/or kV adjustment per patient size (includes targeted exams where dose is matched to clinical indication); or iterative reconstruction. Contrast material: ISOVUE; Contrast volume: 170 ml; Contrast route: IV; COMPARISON: CT ANGIO CHEST 08/17/2023 7:29 PM FINDINGS: Tubes, catheters and devices: Enteric tube terminates in the mid stomach. Lungs: Bibasilar dependent consolidation is probably atelectasis. Coronary arteries: Severe coronary artery calcification. Liver: Normal. No mass. Gallbladder and biliary ducts: Normal. No calcified stones. No ductal dilation. Pancreas: There are a few scattered punctate calcifications in the pancreas consistent with chronic pancreatitis. No acute pancreatitis. 1.6 cm cystic lesion in the pancreatic body. Spleen: Normal. No splenomegaly. Adrenal glands: Normal. No mass. Kidneys and ureters: Bilateral renal simple cysts measuring up to 8.2 cm in the left upper pole and 2.3 cm in the right lower pole. Bilateral subcentimeter low-density renal lesions are too small to characterize. No hydronephrosis. Stomach and bowel: 1.2 cm ulceration along the posterior wall of the distal stomach. Mild distal colonic diverticulosis. No dilated or thickened bowel loops. Appendix: No evidence of appendicitis. Intraperitoneal space: Unremarkable. No free air. No significant fluid collection. Vasculature: Severe atherosclerotic disease. 3.4 cm fusiform infrarenal abdominal aortic aneurysm. Incidental retroaortic left renal vein. Moderate stenosis of the proximal SMA. Lymph nodes: Unremarkable. No enlarged lymph nodes. Urinary bladder: Hart catheter in the bladder. The bladder is decompressed and contains a small amount of gas. Reproductive: Mild prostate enlargement. Bones/joints: Moderate lower lumbar spine degenerative change. [id number] degenerative change of the bilateral hips. Soft tissues: Small fat containing umbilical hernia. IMPRESSION: 1. 1.2 cm ulcer along the posterior wall of the distal stomach. No findings to suggest perforation. 2. Extensive atherosclerotic disease with a 3.4 cm fusiform abdominal aortic aneurysm. 3. 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 4. 1.6 cm cystic lesion in the pancreatic body. Reimaging every 2 years for 4 years is recommended. (Reference: Juve, 2017) COMMENTS: Consistent with the [employer]'s Incidental Findings Committee white paper (J Am Ricardo Radiol 2018): Any incidental renal lesion less than 1 cm or classified as too small to characterize, or any incidental cystic renal lesion characterized as simple-appearing, is likely benign. No follow-up imaging is recommended for these lesions per consensus recommendations based on imaging criteria. REFERENCES: Juve ALONSO, et al. Management of Incidental Pancreatic Cysts: A White Paper of the ACR Incidental Findings Committee. J Am Ricardo Radiol. 2017;14(7):911-923.
--- NOTE | 2023-08-17 19:02 | CT_ITS ---
PROCEDURE INFORMATION: Exam: CTA Neck With Contrast Exam date and time: 08/17/2023 7:24 PM Age: 83 years old Clinical indication: Other: AMS; Additional info: AMS intubated TECHNIQUE: Imaging protocol: Computed tomographic angiography of the neck with contrast. Exam focused on the cervical segments of the vasculature. 3D rendering (Not supervised by radiologist): MIP and/or 3D reconstructed images were created by the technologist. Radiation optimization: All CT scans at this facility use at least one of these dose optimization techniques: automated exposure control; mA and/or kV adjustment per patient size (includes targeted exams where dose is matched to clinical indication); or iterative reconstruction. Contrast material: ISOVUE; Contrast volume: 170 ml; Contrast route: INTRAVENOUS (IV); COMPARISON: CT ANGIO HEAD 08/17/2023 7:24 PM FINDINGS: Tubes, catheters and devices: Endotracheal tube terminates at the level of clavicles. Enteric tube within the lumen of the esophagus. Right common carotid artery: Moderate calcific atherosclerotic disease of the right carotid bulb resulting in severe stenosis of the proximal right ICA. Right internal carotid artery: See Right common carotid artery finding. Right external carotid artery: No occlusion or stenosis of the origin. Left common carotid artery: Moderate calcific atherosclerotic disease of the left carotid bulb resulting in moderate stenosis. Left internal carotid artery: No stenosis of the extracranial segment. No dissection or occlusion. Left external carotid artery: No occlusion or stenosis of the origin. Right vertebral artery: No stenosis. No dissection or occlusion. Left vertebral artery: No stenosis. No dissection or occlusion. Other arteries: Moderate calcified and noncalcified atherosclerotic disease of the left subclavian resulting in moderate stenosis. Soft tissues: Normal. No significant soft tissue swelling. Bones/joints: No acute fracture. Lungs: Mild centrilobular emphysematous changes with an apical gradient is present. Dependent atelectasis incidentally noted. IMPRESSION: 1. Moderate calcified and noncalcified atherosclerotic disease of the left subclavian resulting in moderate stenosis. 2. Moderate calcific atherosclerotic disease of the left carotid bulb resulting in moderate stenosis. 3. Moderate calcific atherosclerotic disease of the right carotid bulb resulting in severe stenosis of the proximal right ICA. REFERENCES: NASCET CRITERIA. The degree of stenosis in the cervical segment of the internal carotid artery is based on NASCET criteria. Normal is no stenosis. Mild is less than 50% stenosis. Moderate is 50-69% stenosis. Severe is 70% to 99% stenosis. Total occlusion is no detectable patent lumen.
--- NOTE | 2023-08-17 19:06 | HMH.EDGENADL ---
Discharge Plan Disposition Patient Disposition: Xfer Short-Term Hosp Chief Complaint: Altered Mental Status Prescriptions Prescriptions: No Action insulin asp prt-insulin aspart [Novolog Mix 70-30 U-100 Insuln] 100 unit/mL (70-30) solution 40 unit SQ DAILY Patient Comments: 20 units morning 20 units night quinapril 20 mg tablet 20 mg PO DAILY rosuvastatin 40 mg tablet 40 mg PO DAILY bisoprolol fumarate 5 MG tablet 5 mg PO DAILY gabapentin 300 MG capsule 300 mg PO BID metformin 1,000 MG tablet extended release 24hr 1,000 mg PO BID hydrocodone-acetaminophen 5-325 mg tablet 1 tab PO DAILY Qty: 30 0RF Referrals Follow up/Referrals: Maxine Flores APRN [Primary Care Provider] - See instructions Clinical Impressions Clinical Impression: Acute hyperglycemia, Encephalopathy Instructions Patient Instructions: DI for Altered Mental Status Discharge ED Provider: Tushar Huggins General Adult HPI General Chief complaint: Altered Mental Status Stated complaint: HIGH GLUCOSE Time Seen by Provider: 08/17/23 18:46 History of Present Illness HPI narrative: Patient is a 83-year-old male with largely unknown past medical history, insulin-dependent diabetes who presents emergency department for evaluation of encephalopathy. History is largely obtained by EMS and chart review. Patient was intermittently confused this afternoon and instructed him to take his insulin which she did not. He became progressively encephalopathic and upon EMS arrival had progressive decline, was nonverbal, flailing extremities and extremely agitated. IV access was initially obtained in the loss, fingerstick in the field read as high. Vitals not able to be obtained prior to arrival. Upon arrival patient is sweating, eyes closed, flailing extremities. No other history is able to be obtained at this time. Related Data Home Medications Medication Instructions Recorded Confirmed bisoprolol fumarate 5 mg tablet 5 mg PO DAILY High blood pressure 01/17/18 07/03/22 gabapentin 300 mg capsule 300 mg PO BID Pain 01/17/18 07/03/22 metformin 1,000 mg tablet,extended 1,000 mg PO BID Diabetes 01/17/18 07/03/22 release 24hr (osmotic) insulin aspar prt-insulin aspart 40 unit SQ DAILY Diabetes 05/14/21 07/03/22 100 unit/mL (70-30) subcutaneous soln (Novolog Mix 70-30 U-100 Insuln) quinapril 20 mg tablet 20 mg PO DAILY BLOOD PRESSURE 05/14/21 07/03/22 rosuvastatin 40 mg tablet 40 mg PO DAILY Cholesterol 05/14/21 07/03/22 Previous Rx's Medication Instructions Recorded hydrocodone 5 mg-acetaminophen 325 1 tab PO DAILY #30 tabs 07/03/22 mg tablet Allergies Allergy/AdvReac Type Severity Reaction Status Date / Time No Known Allergies Allergy Verified 06/18/22 13:57 [facility] Disclaimer: The information contained in this section may have been updated after the patient was seen, as this information can be updated by other users. Medical History Edema of right ankle Social History Smoking Status: Unknown if ever smoked alcohol intake: never substance use type: denies use current occupational status: other Travel in the last 8 weeks: None household members: spouse housing: house current occupational exposures/hazards: No caffeine: Yes ROS Obtained: Yes unobtainable due to mental status Physical Exam General General appearance: other (Agitated, eyes closed) Head Head exam: atraumatic and normocephalic Eye Eye exam: Present PERRL ENT ENT exam: Present mucous membranes moist Neck Neck exam: Present normal inspection Chest Chest inspection: Present normal inspection and symmetric chest wall rise Respiratory Respiratory exam: Present normal lung sounds bilaterally; Absent respiratory distress Cardiovascular Cardiovascular exam: Present normal rhythm and tachycardia Abdominal Exam Abdominal exam: Present soft Extremities Exam Extremities exam: Present normal inspection Neurological Exam Neurological exam: Present other (Flailing extremities, eyes do not open to pain, extremities do not localize to pain, nonverbal.) Skin Skin exam: Present dry and diaphoresis Medical Decision Making Pineda Inquiry Pt receiving controlled substance: No Vital Signs: 08/17/23 19:19 Temperature 99.1 F Temperature Source Temporal Artery Scan Pulse Rate [Left Radial] 106 H Respiratory Rate 20 Blood Pressure [Right Arm] 186/93 H Blood Pressure Mean [Right Arm] 124 02 Sat by Pulse Oximetry 99 Oxygen Delivery Method Room Air Lab Data Lab Results 08/17/23 18:40: WBC 10.9 H, RBC 4.25 L, Hgb 13.6 L, Hct 43.0, MCV 101.2 H, MCH 32.1 H, MCHC 31.7 L, RDW 14.6, Plt Count 291, MPV 8.2, Neut % (Auto) 74.5, Lymph % (Auto) 17.2, Trigg % (Auto) 6.7, Eos % (Auto) 0.9, Baso % (Auto) 0.7, Neut # (Auto) 8.1 H, Lymph # (Auto) 1.9, Trigg # (Auto) 0.7, Eos # (Auto) 0.1, Baso # (Auto) 0.1, Sodium 138, Potassium 3.7, Chloride 104, Carbon Dioxide 23, Anion Gap 14.7, BUN 14, Creatinine 1.00, Estimated Creat Clear 73, Estimated GFR 72, Est GFR ( Amer) 87, Glucose 584 H*, Calcium 9.0, Total Bilirubin 0.4, AST 32, ALT 28, Alkaline Phosphatase 89, Troponin I 0.02, Total Protein 6.9, Albumin 3.8, Globulin 3.1, Albumin/Globulin Ratio 1.2, Salicylates < 1.0 L, Acetaminophen < 10 L, Plasma/Serum Alcohol < 10, Acetone Level None detected 08/17/23 19:02: VBG pH 7.33, VBG pCO2 44.3, VBG pO2 41.7 H, VBG HCO3 22.8 L, VBG Total CO2 24.1, VBG O2 Saturation 75.9 H, VBG Base Excess -3.2 L, VBG Lactic Acid 3.0 H 08/17/23 19:20: Urine Color Straw, Urine Appearance Clear, Urine pH 6.5, Ur Specific [place] 1.010, Urine Protein 1+, Urine Glucose (UA) 3+, Urine Ketones Negative, Urine Blood 1+, Urine Nitrate Negative, Urine Bilirubin Negative, Urine Urobilinogen 0.2, Ur Leukocyte Esterase Negative, Urine RBC Occasional, Urine WBC 3-5, Ur Squamous Epith Cells Occasional, Urine Bacteria None 08/17/23 18:40 08/17/23 18:40 Orders (Tests/Meds): ED MEDICATIONS Generic Name Dose Route Start Last Admin Trade Name Freq PRN Reason Stop Dose Admin Propofol 100 mls @ 5.361 mls/hr 08/17/23 18:59 08/17/23 19:52 Diprivan 10mg/Ml 100ml Bottle IV 09/16/23 18:58 10 mcg/kg/min .[id number] ANKUSH 5.36 mls/hr Administration Protocol 10 MCG/KG/MIN Vancomycin HCl 2,000 mg/ 500 mls @ 250 mls/hr 08/17/23 19:45 08/17/23 20:09 Sodium Chloride IV 08/17/23 21:44 250 mls/hr ONCE ONE Administration Miscellaneous 1 each 08/17/23 19:15 08/17/23 19:35 Vancomycin Consult Request NOTAPPLIC 09/16/23 19:14 1 each CONSULT PHARMACY [facility] Administration Sodium Chloride 10 ml 08/17/23 19:37 08/17/23 19:38 Sodium Chloride 0.9% 10ml Syr (Rad Only) IV 09/16/23 19:36 10 ml NEEDED PRN Administration Maintain IV Site Discontinued Medications Generic Name Dose Route Start Last Admin Trade Name Freq PRN Reason Stop Dose Admin Acetaminophen 1,000 mg 08/17/23 19:04 08/17/23 19:22 Acetaminophen 1,000mg/100ml Vial IV 08/17/23 19:05 1,000 mg ONCE ONE Administration Etomidate 20 mg 08/17/23 18:40 08/17/23 18:40 Etomidate 40mg/20ml Vial IV 08/17/23 18:41 20 mg ONCE ONE Administration Lactated Ringer's 1,000 mls @ 999 mls/hr 08/17/23 19:02 08/17/23 19:22 Lactated Ringer's 1000 Ml Bag IV 08/17/23 20:02 999 mls/hr .Q1H1M ONE Administration Piperacillin Sod/Tazobactam 50 mls @ 100 mls/hr 08/17/23 19:04 Sod 3.375 gm/ Sodium Chloride IV 08/17/23 19:33 ONCE ONE Ceftriaxone Sodium 2 gm/ 100 mls @ 200 mls/hr 08/17/23 19:05 08/17/23 19:22 Sodium Chloride IV 08/17/23 19:34 200 mls/hr ONCE ONE Administration Metronidazole 500 mg in 100 mls @ 100 mls/hr 08/17/23 19:05 08/17/23 19:22 Flagyl 500mg/100ml Ivpb IV 08/17/23 20:04 100 mls/hr ONCE ONE Administration Iopamidol 170 ml 08/17/23 19:37 08/17/23 19:38 Iopamidol-370 (76%);100ml Bottle IV 08/17/23 19:38 170 ml ONCE ONE Administration Morphine Sulfate 4 mg 08/17/23 20:29 08/17/23 20:31 Morphine 4mg/Ml Syringe IV 08/17/23 20:30 4 mg ONCE ONE Administration Sodium Chloride 100 ml 08/17/23 19:37 08/17/23 19:38 0.9 % Sodium Chloride 50 Ml Vial IV 08/17/23 19:38 100 ml ONCE ONE Administration Succinylcholine Chloride 100 mg 08/17/23 18:44 08/17/23 18:44 Succinylcholine 20mg/Ml 10 Ml Mdv IV 08/17/23 18:45 100 mg ONCE ONE Administration ORDERS Category Date Time Status CT abdomen pelvis w con Stat Cat Scan 08/17/23 19:[address] angio chest - dissection Stat Cat Scan 08/17/23 19:[address] angio head Stat Cat Scan 08/17/23 19:[address] angio neck Stat Cat Scan 08/17/23 19:[address] head/brain wo con Stat Cat Scan 08/17/23 19:02 Completed Acetaminophen Stat Lab 08/17/23 18:40 Completed Acetone, Serum (Rapid) Stat Lab 08/17/23 18:40 Completed CBC w/Auto Diff [Complete Blood Count Auto Diff] Stat Lab 08/17/23 18:40 Completed CMP [Comprehensive Metabolic Panel] Stat Lab 08/17/23 18:40 Completed Drug Screen,Urine Stat Lab 08/17/23 20:14 Ordered Ethanol [Ethyl Alcohol] Stat Lab 08/17/23 18:40 Completed Salicylate Stat Lab 08/17/23 18:40 Completed Trop I [Troponin I] Stat Lab 08/17/23 18:40 Completed Troponin I Q3H Lab 08/17/23 22:15 Ordered Troponin I Q3H Lab 08/18/23 01:15 Ordered UA [Urinalysis and Microscopic] Stat Lab 08/17/23 19:20 Completed Blood Culture Stat Micro 08/17/23 19:43 Received VBG [Venous Blood Gas] Stat RT 08/17/23 19:02 Completed ECG Data Tracing #1: Independently interpreted by me rate is 88, rhythm is irregular, sinus arrhythmia, no ST elevation in anatomical contiguous leads, QTc 449. Medical Decision Narrative: In summary patient is a 83-year-old male with past medical history described above presents emergency department for evaluation of encephalopathy in the setting of insulin-dependent diabetes. Patient is agitated upon arrival, depressed GCS. Initial vitals show normal oxygen saturation however given decreased GCS, inability to follow commands the likelihood of emergent pathology is high and to expedite workup and secure his airway patient was intubated without difficulty. Broad workup will be conducted with CTA head, neck, chest, noncontrasted CT scan of the head, CT abdomen pelvis IV contrast. Fingerstick blood glucose in the high 500s, DKA can cause encephalopathy however this is discordant given that number of glucose. Broad hematologic labs to be obtained. Differential diagnosis includes ACS, intracranial hemorrhage, DKA, among others. Initial interventions include sepsis bolus fluids, broad-spectrum antibiotics with bank, ceftriaxone, metronidazole. Initial workup reviewed by me, no significant leukocytosis, compensated acid-base status slightly elevated lactate of 3, sugar 584 which is being volume resuscitated, initial troponin 0.02, EKG nonischemic, urinalysis interpreted by me and not consistent with infection. No concern for DKA at this point. Family arrives at bedside and provides additional history. Patient has had multiple falls over the last 48 hours. He has fallen in the bathroom unwitnessed striking his head, he fell outside which EMS diagnosed him with hypoglycemia and gave him sugar at home and he was not evaluated in the emergency department, and he was subsequently found down before today. He is not on anticoagulants. Functional baseline is ambulatory, conversational. He was a little bit agitated this morning and was at his normal functional baseline at 2 PM when went to bed. When she awoke at 3:30 PM she found him in the floor agitated flailing his extremities not making any sense. Interval update salicylates and Tylenol as well as alcohol are negative. Head CT shows multiple subcortical and deep hypoattenuating white matter foci which can represent a broad etiology, no acute hyperattenuated foci to suggest acute intracranial hemorrhage. CTA head shows severe stenosis right ophthalmic segment of right intracranial ICA, severe calcific atherosclerotic disease left ICA. CTA chest shows good position of the ET tube, severe coronary artery calcifications, no acute pulmonary embolism or dissection. CT abdomen pelvis shows nonperforated 1.2 cm gastric ulcer, 3.4 cm fusiform abdominal aortic aneurysm, moderate stenosis SMA, cystic lesion in the pancreas. Upon his arrival he did not have any unilateral paralysis to suspect devastating stroke and he is outside of the stroke window for tPA. He has been appropriately covered with antibiotics. Patient will require transfer to higher level care for continued evaluation. It may be that he is severely concussed from his multiple falls striking his head over the last couple of days. The case discussed with [facility] Dr. Clayton who graciously accepted patient for transfer for continued evaluation at this time. Patient was transported via air [facility] as we do not currently have ground EMS in a reasonable time and patient will require nursing for transport. Critical Care Critical Care Time Critical Care Time: Yes Attestation: On 08/17/23, the high probability of a clinically significant, sudden or life threatening deterioration of the following system(s) required my full and direct attention, intervention and personal management. The time I documented below is in addition to time spent performing reported procedures but includes the following listed in this critical care notation. Total Time Total Critical Care Time: 45
[2023-08-17 19:16] LABS: Basophils # 0.1 K/mm3 (0-0.2); Basophils % 0.7 % (0.1-2.0); Eosinophils # 0.1 K/mm3 (0.0-0.4); Eosinophils % 0.9 % (0.1-12.0); Hemoglobin 13.6 g/dL (14.1-18.0); Lymphocytes # 1.9 K/mm3 (0.7-4.5); Lymphocytes % 17.2 % (10-50); Mean Corpuscular HGB Conc 31.7 g/dL (31.8-35.4); Mean Corpuscular Hemoglobin 32.1 pg (27.0-31.2); Mean Corpuscular Volume 101.2 fl (80-94); Mean Platelet Volume 8.2 fl (7.4-10.4); Monocytes # 0.7 K/mm3 (0.1-1.0); Monocytes % 6.7 % (1.7-9.3); Neutrophils # 8.1 K/mm3 (1.8-7.8); Neutrophils % 74.5 % (37.0-80.0); Platelet Count 291 K/mm3 (142-424); Red Blood Count 4.25 M/mm3 (4.60-6.20); Red Cell Distribution Width 14.6 % (11.5-17.5); White Blood Count 10.9 K/mm3 (4.8-10.8)
[2023-08-17 19:19] VITALS: BP 186/93; PULSE 106; RESP 20; TEMP 37.3; O2SAT 99; BMI 25.2
[2023-08-17] MEDS: CEFTRIAXONE SODIUM 2 GM in 0.9 % SODIUM CHLORIDE 100 ML IV (19:22)
[2023-08-17] MEDS: METRONIDAZ/SOD CHL 500 MG/100 ML PIGGYBACK 100 MG IV (19:22)
[2023-08-17] MEDS: ACETAMINOPHEN 1,000MG/100ML VIAL 1000 MG IV (19:22)
[2023-08-17] MEDS: LACTATED RINGERS 1000ML 1,000 ML 999 ML IV (19:22)
[2023-08-17 19:23] VITALS: BMI 25.2
[2023-08-17 19:24] LABS: Chloride 104 mmol/L (98-107); Potassium 3.7 mmoL/L (3.5-5.1); Sodium 138 mmol/L (136-145)
[2023-08-17 19:25] LABS: Microscopic, Urine URINE MICROSCOPIC (MICROSCOPIC)
[2023-08-17 19:26] LABS: Appearance,Urine CLEAR (Clear); Bilirubin,Urine Negative (Negative); Blood, Urine 1+ (Negative); Color,Urine Straw (Yellow); Glucose,Urine (UA) 3+ (Negative); Ketones,Urine Negative (Negative); Leukocyte Esterase,Urine Negative (Negative); Nitrate,Urine Negative (Negative); PH,Urine 6.5 (5.0-8.5); Protein,Urine 1+ (Negative); Urobilinogen,Urine 0.2 EU/dl (0.2)
[2023-08-17 19:26] LABS: Alanine Aminotransferase 28 U/L (12-78); Alkaline Phosphatase 89 U/L (38-126); Aspartate Amino Transferase 32 U/L (17-59); Bilirubin,Total 0.4 mg/dl (0.2-1.3); Blood Urea Nitrogen 14 mg/dl (9-20); Creatinine Clearance Estimated 73 mL/min (50-200); Estimated Glomerular Filt Rate 72 ml/min (>60); GFR (African American) 87 ML/MIN (>60)
[2023-08-17 19:27] LABS: Albumin Level 3.8 g/dl (3.5-5.0); Albumin/Globulin Ratio 1.2 (1.1-1.8); Anion Gap 14.7 mEq/L (5-15); Carbon Dioxide 23 mmol/L (22.0-30.0); Globulin 3.1 g/dL (1.3-3.2); Total Protein,Serum 6.9 g/dl (6.3-8.2)
[2023-08-17] MEDS: propofoL 100 ML 5.36 MG IV ×2 (19:28→19:52)
[2023-08-17 19:29] LABS: Glucose 584 mg/dl (74-100)
[2023-08-17] MEDS: VANCOMYCIN CONSULT REQUEST 1 EACH NOTAPPLIC (19:35)
--- NOTE | 2023-08-17 19:36 | PC.NURSE ---
Called [facility] for vanc consult; stated he would put order in order.
[2023-08-17] MEDS: SODIUM CHLORIDE 0.9% 10ML SYR (RAD ONLY) 10 ML IV (19:38)
[2023-08-17] MEDS: 0.9 % SODIUM CHLORIDE 50 ML VIAL 100 ML IV (19:38)
[2023-08-17] MEDS: IOPAMIDOL-370 (76%);100ML BOTTLE 170 ML IV (19:38)
[2023-08-17 19:39] LABS: Troponin I 0.02 ng/ml (0.00-0.034)
[2023-08-17 19:40] LABS: Acetone, Serum (Rapid) None Detected (None Detect)
[2023-08-17 19:43] LABS: VBG Base Excess -3.2 mmol/L (-2.4-2.3); VBG HCO3 22.8 mmol/L (23-30); VBG Oxygen Saturation 75.9 % (50-70); VBG PCO2 44.3 mmol/L (35-51); VBG PH 7.33 mmol/L (7.31-7.41); VBG PO2 41.7 mmol/L (28-40); VBG Total CO2 24.1 mmol/L (23-27)
[2023-08-17 19:53] LABS: RBC,Urine Occasional #/hpf (0-3); Squamous Epithelial Cell,Urine Occasional #/hpf (0-5)
[2023-08-17] MEDS: VANCOMYCIN HCL 2,000 MG in 0.9 % SODIUM CHLORIDE 500 ML 250 MG IV (20:09)
[2023-08-17 20:27] LABS: Acetaminophen < 10 ug/ml (10-30); Ethyl Alcohol < 10 mg/dl (0-10); Salicylate < 1.0 mg/dL (2.0-20.0)
[2023-08-17] MEDS: MORPHINE 4MG/ML SYRINGE 4 MG IV (20:31)
--- NOTE | 2023-08-17 21:01 | PC.NURSE ---
After shift report entered patients room and began administering medications to this patient per the MAR, after making multiple rounds on patient patient was placed on multiple antibiotics listed under the MAR, a third IV was established being a 16ga IV in patients L AC, Dr. Huggins switched orders for a sepsis bolus. 1500mL of lactated ringers was placed per orders of Dr. Huggins. Dr. Huggins also ordered 4mg of Morphine which was administered, was contacted in regards to transfer with Dr. Velazquez accepting will be calling [employer] [facility] to fly this patient.
[2023-08-17 21:32] LABS: Barbiturates Screen,Urine Negative ng/ml (<200)
[2023-08-17 21:33] LABS: Amphetamine/Metha Screen,Urine Negative ng/ml (<1000); Benzodiazepines Screen,Urine Negative ng/ml (<200)
[2023-08-17 21:34] LABS: Cannabinoid Screen,Urine Negative ng/ml (<50); Cocaine Screen,Urine Negative ng/ml (<300)
[2023-08-17 21:35] LABS: Methadone Screen,Urine Negative ng/ml (<300)
[2023-08-17 21:36] LABS: Opiate Screen,Urine Negative ng/ml (<300); Phencyclidine Screen,Urine Negative ng/ml (<25)
[2023-08-17 21:58] VITALS: BP 148/66; PULSE 71; RESP 12; TEMP 37.2; O2SAT 100
== END 2023-08-17 22:19 | disposition short-term general hospital (02) ==
PROVIDERS: Emergency Provider Emergency Medicine; PCP Nurse Practitioner Family
DX: E11.65 Type 2 diabetes mellitus with hyperglycemia (principal); G93.49 Other encephalopathy; R45.1 Restlessness and agitation; I49.9 Cardiac arrhythmia, unspecified; Z79.4 Long term (current) use of insulin; W19.XXXA Unspecified fall, initial encounter; R29.6 Repeated falls; R74.02 Elevation of levels of lactic acid dehydrogenase [LDH]; E87.29 Other acidosis
CPT/HCPCS: 31500; 51702; 70450; 70496; 70498; 71275; 74177; 80053; 80307; 80320; 80329; 81001; 82009; 82803; 84484; 85025; 87040; 93005; 94002; 96365; 96366; 96375; 99291; G0480; J0131; J0330; J0696; J2270; J2704; J3370; J7120; Q9967

== ENCOUNTER 2023-09-10 16:35 | Outpatient (CLI) | payer MEDICARE, SELFPAY ==
[2023-09-10 17:05] LABS: Basophils # 0.1 K/mm3 (0-0.2); Eosinophils # 0.1 K/mm3 (0.0-0.4); Eosinophils % 1.3 % (0.1-12.0); Hematocrit 42.4 % (42.0-52.0); Hemoglobin 13.6 g/dL (14.1-18.0); Lymphocytes # 2.4 K/mm3 (0.7-4.5); Lymphocytes % 33.3 % (10-50); Mean Corpuscular Hemoglobin 31.5 pg (27.0-31.2); Mean Corpuscular Volume 98.6 fl (80-94); Mean Platelet Volume 8.4 fl (7.4-10.4); Monocytes # 0.6 K/mm3 (0.1-1.0); Monocytes % 8.4 % (1.7-9.3); Neutrophils # 4.1 K/mm3 (1.8-7.8); Platelet Count 370 K/mm3 (142-424); Red Cell Distribution Width 14.6 % (11.5-17.5); White Blood Count 7.4 K/mm3 (4.8-10.8)
[2023-09-10 17:55] LABS: Alanine Aminotransferase 61 U/L (12-78); Albumin Level 3.5 g/dl (3.5-5.0); Albumin/Globulin Ratio 1.2 (1.1-1.8); Alkaline Phosphatase 75 U/L (38-126); Anion Gap 12.4 mEq/L (5-15); Aspartate Amino Transferase 51 U/L (17-59); Bilirubin,Total 0.4 mg/dl (0.2-1.3); Blood Urea Nitrogen 16 mg/dl (9-20); Calcium 9.2 mg/dl (8.4-10.2); Carbon Dioxide 29 mmol/L (22.0-30.0); Chloride 102 mmol/L (98-107); Estimated Glomerular Filt Rate 72 ml/min (>60); GFR (African American) 87 ML/MIN (>60); Globulin 2.9 g/dL (1.3-3.2); Glucose 110 mg/dl (74-100); Potassium 4.4 mmoL/L (3.5-5.1); Sodium 139 mmol/L (136-145); Total Protein,Serum 6.4 g/dl (6.3-8.2)
[2023-09-10 19:02] LABS: Hemoglobin A1C 7.6 % (4.0-6.0)
== END 2023-09-10 23:59 | disposition home or self-care (01) ==
LOC: LAB.DROPOF 16:35
PROVIDERS: PCP Internal Medicine; Visit Provider Internal Medicine
DX: I11.9 Hypertensive heart disease without heart failure (principal); I25.10 Atherosclerotic heart disease of native coronary artery without angina pectoris; E11.59 Type 2 diabetes mellitus with other circulatory complications; Z79.4 Long term (current) use of insulin; Z79.84 Long term (current) use of oral hypoglycemic drugs
CPT/HCPCS: 80053; 83036; 85025

== ENCOUNTER 2023-09-20 14:26 | Emergency (ER) | payer MEDICARE, SELFPAY ==
[2023-09-20 14:35] VITALS: BP 158/67; PULSE 61; RESP 20; TEMP 37; O2SAT 98; BMI 23.3
--- NOTE | 2023-09-20 14:52 | ED_ITS ---
Discharge Plan Disposition Patient Disposition: Home, Self-Care Condition: Good Prescriptions Prescriptions: New nystatin 100,000 unit/gram ointment 1 applic topical BID Qty: 30 1RF No Action insulin asp prt-insulin aspart [Novolog Mix 70-30 U-100 Insuln] 100 unit/mL (70-30) solution 40 unit SQ DAILY Patient Comments: 20 units morning 20 units night rosuvastatin 40 mg tablet 40 mg PO DAILY amlodipine 10 mg tablet 10 mg PO DAILY Qty: 90 1RF tamsulosin 0.4 mg capsule 0.4 mg PO ONCE Qty: 90 1RF oxybutynin chloride 5 mg tablet extended release 24hr 5 mg PO ONCE Qty: 90 1RF carvedilol 25 mg tablet 25 mg PO BID Qty: 180 1RF metformin 1,000 mg tablet 1,000 mg PO BID Qty: 180 3RF gabapentin 300 mg capsule 300 mg PO BID PRN (Reason: Pain) Referrals Follow up/Referrals: Rei Garcia MD [Primary Care Provider] - See instructions Activity Restrictions/Add. Instructions Additional Instructions/Restrictions: clean area apply cream follow up with pcp if worsen return Clinical Impressions Clinical Impression: Yeast dermatitis Instructions Patient Instructions: DI for Yeast Infection-Skin Print Language Print Language: Kittitian Discharge ED Provider: Oz ([facility])Kristen [facility] HPI General Stated complaint: rash n growing Mode of Arrival: Ambulatory Source of Information: Patient Limitations: No Limitations Time Seen by Provider: 09/20/23 14:57 Description of Symptoms (Recalled from Triage Doc. by RN): PATIENT C/O WHITE PATCHES AND ITCHING TO GENITAL AREA HEENT Symptoms (Recalled from RN notes): No Resp Symptoms (Recalled from RN notes): No Skin Symptoms (Recalled from RN notes): No MS Symptoms (Recalled from RN notes): No Functional Status (Recalled from RN notes): WNL History of Present Illness Provider Complaint: 83 yr old male presents for itching and white patches in kevin area Related Data Home Medications ?Medication ?Instructions ?Recorded ?Confirmed insulin aspar prt-insulin aspart 40 unit SQ DAILY Diabetes 05/14/21 07/03/22 100 unit/mL (70-30) subcutaneous soln (Novolog Mix 70-30 U-100 Insuln) rosuvastatin 40 mg tablet 40 mg PO DAILY Cholesterol 05/14/21 09/10/23 gabapentin 300 mg capsule 300 mg PO BID PRN Pain 09/10/23 09/10/23 Previous Rx's ?Medication ?Instructions ?Recorded amlodipine 10 mg tablet 10 mg PO DAILY #90 tabs 09/11/23 oxybutynin chloride 5 mg 5 mg PO ONCE #90 tabs 09/11/23 tablet,extended release 24 hr tamsulosin 0.4 mg capsule 0.4 mg PO ONCE #90 caps 09/11/23 carvedilol 25 mg tablet 25 mg PO BID #180 tabs 09/12/23 metformin 1,000 mg tablet 1,000 mg PO BID #180 tabs 09/15/23 nystatin 100,000 unit/gram topical 1 applic topical BID #30 grams 09/20/23 ointment Allergies Allergy/AdvReac Type Severity Reaction Status Date / Time No Known Allergies Allergy Verified 06/18/22 13:57 Worker's Comp Is this a Worker's Comp case?: No [facility] Disclaimer: The information contained in this section may have been updated after the patient was seen, as this information can be updated by other users. Medical History , BOX SPINNER) Edema of right ankle Social History , BOX SPINNER) Smoking Status: Unknown if ever smoked alcohol intake: never substance use type: denies use current occupational status: other Travel in the last 8 weeks: None household members: spouse housing: house current occupational exposures/hazards: No caffeine: Yes ROS Obtained: Yes All systems reviewed & no additional complaints except as documented Constitutional Constitutional: Reports system reviewed and no additional complaints, except as documented Eyes Eyes: Reports system reviewed and no additional complaints, except as documented ENT Ears, Nose, Mouth, and Throat: Reports system reviewed and no additional complaints, except as documented Cardiovascular Cardiovascular: Reports system reviewed and no additional complaints, except as documented Respiratory Respiratory: Reports system reviewed and no additional complaints, except as documented Gastrointestinal Gastrointestingal: Reports system reviewed and no additional complaints, except as documented Musculoskeletal Musculoskeletal: Reports system reviewed and no additional complaints, except as documented Integumentary/Breasts Skin/Breast: Reports system reviewed and no additional complaints, except as documented, Reports as per HPI, Reports pruritus and Reports rash Neurologic Neurologic: Reports system reviewed and no additional complaints, except as documented Endocrine Endocrine: Reports system reviewed and no additional complaints, except as documented Allergic/Immunologic Allergic/Immunologic: Reports system reviewed and no additional complaints, except as documented Physical Exam General General appearance: alert and in no apparent distress Head Head exam: atraumatic Eye Eye exam: Present normal appearance and PERRL ENT ENT exam: Present normal exam, normal oropharynx, mucous membranes moist and TM's normal bilaterally Respiratory Respiratory exam: Present normal lung sounds bilaterally Cardiovascular Cardiovascular exam: Present regular rate and normal rhythm Abdominal Exam Abdominal exam: Present soft and normal bowel sounds Neurological Exam Neurological exam: Present alert and oriented X3 Skin Skin exam: Present warm and rash Expanded Skin Exam Type of lesion: Present rash Distribution: other (kevin area) Description: Present other (rash) Body image: 2 1. rash/yeast Medical Decision Making Medical Records Medical records reviewed: Yes I reviewed the patient's medical records. Pineda Inquiry Pt receiving controlled substance: No Pineda was queried for this patient: No Vital Signs: 09/20/23 14:35 Temperature 98.6 F Temperature Source Oral Pulse Rate [Right Brachial] 61 Respiratory Rate 20 Blood Pressure [Right Arm] 158/67 H Blood Pressure Mean [Right Arm] 97 Blood Pressure Source [Right Arm] Automatic Cuff Blood Pressure Position [Right Arm] Sitting 02 Sat by Pulse Oximetry 98 Oxygen Delivery Method Room Air
[2023-09-20 14:58] VITALS: BP 158/67; PULSE 61; RESP 20; TEMP 37; O2SAT 98
== END 2023-09-20 15:04 | disposition home or self-care (01) ==
PROVIDERS: Emergency Provider Nurse Practitioner Family; PCP Internal Medicine
DX: B37.2 Candidiasis of skin and nail (principal)
CPT/HCPCS: 99204; 99212; G0463

== ENCOUNTER 2024-03-08 15:30 | Outpatient (CLI) | payer MEDICARE, SELFPAY ==
[2024-03-08 17:39] LABS: Albumin Level 4.3 g/dl (3.5-5.0); Chloride 99 mmol/L (98-107); Potassium 3.9 mmoL/L (3.5-5.1); Sodium 137 mmol/L (136-145)
[2024-03-08 17:41] LABS: Blood Urea Nitrogen 17 mg/dl (9-20); Estimated Glomerular Filt Rate 81 ml/min (>60); GFR (African American) 98 ML/MIN (>60)
[2024-03-08 17:42] LABS: Alanine Aminotransferase 14 U/L (12-78); Albumin/Globulin Ratio 1.8 (1.1-1.8); Alkaline Phosphatase 57 U/L (38-126); Anion Gap 15.9 mEq/L (5-15); Aspartate Amino Transferase 17 U/L (17-59); Bilirubin,Total 0.4 mg/dl (0.2-1.3); Calcium 9.3 mg/dl (8.4-10.2); Carbon Dioxide 26 mmol/L (22.0-30.0); Chol/HDL Ratio 2.7 (1-3.5); Cholesterol 78 mg/dl (140-200); Globulin 2.4 g/dL (1.3-3.2); Glucose 91 mg/dl (74-100); HDL Cholesterol 29 mg/dl (40-60); Total Protein,Serum 6.7 g/dl (6.3-8.2); Triglycerides 120 mg/dl (30-150); VLDL Cholesterol 24 mg/dL (0-40)
[2024-03-08 17:54] LABS: Direct LDL Cholesterol 32.17 mg/dL (100-129)
[2024-03-08 18:27] LABS: Microalbumin/Creatinine Ratio 199.1
[2024-03-08 18:31] LABS: Creatinine,Urine Random 84 mg/dL (Not Estab.)
== END 2024-03-08 23:59 | disposition home or self-care (01) ==
LOC: LAB.DROPOF 03-09 10:16
PROVIDERS: PCP Internal Medicine; Visit Provider Internal Medicine
DX: E78.5 Hyperlipidemia, unspecified (principal); E11.42 Type 2 diabetes mellitus with diabetic polyneuropathy; E11.59 Type 2 diabetes mellitus with other circulatory complications; I25.10 Atherosclerotic heart disease of native coronary artery without angina pectoris; I10 Essential (primary) hypertension; N40.1 Benign prostatic hyperplasia with lower urinary tract symptoms
CPT/HCPCS: 80053; 80061; 82043; 82570; 83036

== ENCOUNTER 2024-05-03 14:27 | Outpatient (CLI) | payer MEDICARE, SELFPAY ==
--- NOTE | 2024-05-03 14:32 | XR_ITS ---
FINAL REPORT CLINICAL HISTORY: fall, pain in sides of neck with movement FINDINGS: AP, lateral and odontoid views of the cervical spine were obtained. There is no prior exam for comparison. There is no acute fracture or malalignment. There is very mild anterolisthesis of C5 on C6 which is unchanged. Degenerative disc disease appears stable. Precervical soft tissues appear within normal limits. IMPRESSION: No acute osseous abnormality of the cervical spine. Reviewed, Interpreted and Dictated by Francine Lu MD Transcribed by Tiffanie Kennedy Authenticated and [facility]
--- NOTE | 2024-05-03 14:32 | XR_ITS ---
FINAL REPORT CLINICAL HISTORY: fall, pain in left elbow FINDINGS: AP, oblique, and lateral views of the left elbow were obtained. There is no prior exam for comparison. There is no fracture visualized. However, there is a joint effusion. Mild degenerative joint disease is noted. No other acute soft tissue abnormality. IMPRESSION: Joint effusion without visualized fracture. Occult fracture not excluded. Consider CT or MRI Reviewed, Interpreted and Dictated by Francine Lu MD Transcribed by Tiffanie Kennedy Authenticated and [facility]
--- NOTE | 2024-05-03 14:32 | XR_ITS ---
FINAL REPORT CLINICAL HISTORY: fall, pain in left upper arm COMPARISON: None FINDINGS: 2 views of the left humerus were obtained. There is no acute fracture or dislocation. The elbow is incompletely imaged. The visualized joint spaces are well preserved. There is no acute soft tissue abnormality. IMPRESSION: No acute abnormality identified. Reviewed, Interpreted and Dictated by Francine Lu MD Transcribed by Tiffanie Kennedy Authenticated and [facility]
== END 2024-05-03 23:59 | disposition home or self-care (01) ==
LOC: RAD 14:29
PROVIDERS: PCP Internal Medicine; Visit Provider Nurse Practitioner
DX: M54.2 Cervicalgia (principal); M25.522 Pain in left elbow; M79.622 Pain in left upper arm
CPT/HCPCS: 72040; 73060; 73080

== ENCOUNTER 2024-08-10 15:31 | Outpatient (CLI) | payer MEDICARE, SELFPAY ==
--- OUTSIDE RECORDS SUMMARY | 2023-11-13 08:45 | XMS_ITS ---
Author Organization [facility] Address [address] [place] [address] Care Team Providers Care Marine Operations Coordinator Name Role Phone Maxine Flores Primary Care Provider Thomas Bowman Unavailable [phone] Braon Medina Unavailable [phone] REASON FOR VISIT talk Encounters Encounter Location Date Provider Diagnosis [facility] [address] [address] 11/13/2023 Baron Medina Plan Of Treatment No Information Progress Notes * Schuyler NUNEZDOB:1940 (84 yo M)Acc No.[id number]:11/13/2023 Progress Notes Patient: Schuyler ROMERO Provider: Cassy Medina MD :1940 A ge:83 Y S ex:Male Date:11/13/2023 Address:[facility] [address] [id number] Pcp:Maxine Flores Subjective: * Chief Complaints: * 1 . Talk. * Medical History: Objective: * Vitals: Assessment: Plan: * Treatment: * * Electronic signature of Howard Medina MD FAAP on 08/10/2024 at 03:34 PM EDT Sign off status: Pending * Provider: Cassy Medina MD Date: 1 Generated for Printi ng/Faxing/eTransmitting on: 0 08/10/2024 03:34 PM EDT
--- OUTSIDE RECORDS SUMMARY | 2024-05-15 17:30 | XMS_ITS ---
Author Organization [facility] Address [address] [facility] [address] [facility] [address] [place] [address] Care Team Providers Care Senior Architectural Designer Name Role Phone Maxine Flores Primary Care Provider Thomas Bowman Unavailable [phone] Migration, Provider Unavailable Unavailable Allergies Allergen (clinical drug ingredient) Drug/Non Drug Allergy documented on EMR Reaction Allergy Type Onset Date Status atorvastatin Lipitor Artralgia Drug Allergy Acti ve [facility] Encounter Medications Medication SIG (Take, Route, Frequency, Duration) Notes Start Date End Date Status Gabapentin 300 MG 1 cap(s) orally twic e a day; Duration: 30 days prn Active amLODIPine Besylate 10 MG 1 tab(s) orally once a day; Duration: 30 days Active Losartan Potassium 100 MG 1 tab(s) orally once a day; Duration: 90 days Active NovoLOG Mix 70/30 (70-30) 100 UNIT/ML INJECT 25 UNITS SUBCUTANEOUSLY IN THE MORNING AND 25 UNITS IN THE EVENING subcutaneously twice daily; Duration: 90 days Active Bisoprolol Fumarate 10 MG 1 tab(s) orally once a day; Duration: 90 days Active Insulin Syringe *Please review a nd pick correct strength-formulati on [facility] options. If intended option is not shown, discontinue and re-order from Quick Search* 11/09/2020 Active Crestor 40 MG 1 tab(s) orally once a day (at bedtime); Duration: 90 Active FREESTYLE LITE TEST STRIPS - 3 TIMES A DAY AND NEEDED; Duration: 30 DAYS *Please review for potential replacement for e-prescription and drug interaction check* 03/13/2022 Active Sildenafil Citrate 100 MG 1 tab(s) orally once a day as needed; Duration: 30 days prn Active Tradjenta 5 MG 1 tab po once a day; Duration: 30 days 06/25/2021 Active metFORMIN HCl 1000 MG 1 tab(s) orally 2 times a day; Duration: 90 days Active Encounters Encounter Location Date Provider Diagnosis [facility] [address] [place], [place] [address] 05/15/2024 Provider Migration Plan Of Treatment Medication Medication Name Sig Start Date Stop Date Notes metFORMIN HCl 1000 MG 1 tab(s) orally 2 times a day; Duration: 90 days Progress Notes * Schuyler NUNEZDOB:1940 (84 yo M)Acc No.[id number]:05/15/2024 Patient: Schuyler ROMERO Provider: Matty dumont Migration :1940 A ge:84 Y S ex:Male Date:05/15/2024 Address:[address] [place], [place] [id number] Pcp:Maxine Flores Subjective: * Chief Complaints: * 1 . Multum To Medispan Conversion Encounter. * Medical History: * Medications: T aking Gabapentin 300 MG Capsule 1 cap(s) orally twice a day , Notes to Pharmacist: prn, Taking Insulin Syringe , Notes to Pharmacist: *Please review and [facility] If intended option is not shown, discontinue and re-order from Quick Search*, Taking Tradjenta 5 MG Tablet 1 tab po once a day , Taking Sildenafil Citrate 100 MG Tablet 1 tab(s) orally once a day as needed , Notes to Pharmacist: prn, Taking FREESTYLE LITE TEST STRIPS - 3 TIMES A DAY AND NEEDED , Notes to Pharmacist: *Please review for potential replacement for e-prescription and drug interaction check*, Taking Crestor 40 MG Tablet 1 tab(s) orally once a day (at bedtime) , Taking Bisoprolol Fumarate 10 MG Tablet 1 tab(s) orally once a day , Taking NovoLOG Mix 70/30 (70-30) 100 UNIT/ML Suspension INJECT 25 UNITS SUBCUTANEOUSLY IN THE MORNING AND 25 UNITS IN THE EVENING subcutaneously twice daily , Taking Losartan Potassium 100 MG Tablet 1 tab(s) orally once a day , Taking amLODIPine Besylate 10 MG Tablet 1 tab(s) orally once a day * Allergies: L ipitor: Artralgia. Objective: * Vitals: Assessment: Plan: * Treatment: * * Electronic signature of Wilmer raymond Migration on 08/10/2024 at 03:34 PM EDT Sign off status: Pending * Provider: Matty dumont Migration Date: 0 05/15/2024 Generated for Taylor colvin/Jamin/Gloria on: 08/10/2024 03:34 PM EDT
--- NOTE | 2024-08-10 15:35 | XR_ITS ---
PROCEDURE INFORMATION: Exam: XR Lumbosacral Spine Exam date and time: 08/10/2024 3:44 PM Age: 84 years old Clinical indication: Low back pain; Additional info: Low back pain and stiffness TECHNIQUE: Imaging protocol: Radiologic exam of the lumbosacral spine. Views: 4 or 5 views. COMPARISON: MR LUMBAR SPINE WO CON 07/20/2021 1:29 PM FINDINGS: Bones/joints: There is no evidence of acute fracture.There is no evidence of malalignment or dislocation. Intervertebral disc spaces are narrowed L4 through S1 consistent with degenerative disc disease. Mild anterior osteophyte formation L2 through L5 Soft tissues: Unremarkable. IMPRESSION: 1. There is no evidence of acute fracture.There is no evidence of malalignment or dislocation. 2. Intervertebral disc spaces are narrowed L4 through S1 consistent with degenerative disc disease.
--- OUTSIDE RECORDS SUMMARY | 2024-08-10 15:35 | XMS_ITS | Data Portability ---
Author Organization [place] - [facility] JODI Hearn ADMIN Address [address] [place] [address] Care Team Providers Care Spot Worker Name Role Phone MAYTE VINCENT Primary Care Provider Assessment Encounter Date Assessment Date Assessment LastModified by Organization Details LastModified Time 01/27/2023 01/27/2023 The patient is a n 82 year old female referred to [facility] by Carlton for management of chronic low back pain. The patient denies DM, and anti-coagulation. The patient does smoke approximately one pack per day. patient returns today status post RF T12-L2 on 12/30/2022. Patient reports no improvement of pain and actually worsening pain since the procedure. Complains of axial back pain with no radicular pain. He has had this pain for many years. Prior note states that he is had prior ablations with significant relief. Pain today 10/20. The patient complains of axial low back pain. This pain increases with movement, prolonged sitting/standing, sleep and mobility. This pain interferes with his ability to enjoy daily activities, and perform hobbies he enjoys. He has participated in physical therapy, but this only provided minimal benefit. He continues to perform at home exercises and stretches in an effort to maintain function. Based on history and physical exam, I believe this patient's pain is associated with lumbar spondylosis, and lumbar degenerative disc disease. I reviewed thoracic and lumbar x-rays from 12/09/2022. Thoracic x-rays show normal alignment with mild to moderate degenerative changes. Lumbar x-ray shows significant disc space narrowing at L4-L5 and L5-S1 with slight retrolisthesis of L3 on L4. To address the patient's pain, I will schedule a lumbar epidural injection L2-L3. In order to control his pain until we can better address it with interventions, I will prescribe him Tylenol 3 q.12 hours number 30 he will return post-injection * Schedule: KENNAI L2-L3 * prescribed Tylenol No. 3 q.12 hours p.r.n. for pain #30 * Follow Up: Post procedure I counseled the patient extensively and informed of the risks of the procedure, including the risk of paralysis, nerve damage, respiratory arrest, arrhythmias, stroke, weakness, and infection, which although very low, could result in or disability. The patient acknowledged to me that they understand and accept these risks. RN EDUCATION Extensive coordination of care provided by RN to educate patient on upcoming procedure and to coordinate obtaining extensive incoming medical records. I have discussed in great detail our potential treatment options which would include a rehabilitative approach to care. This program would include medication management, Physical Therapy, consideration for interventional procedures as appropriate, and lifestyle modification (diet, weight loss, exercise, smoking/tobacco cessation, holistic approach including meditation and yoga). The patient understands and agrees prior to proceeding with this plan. _ __ __ __ __ __ __ __ __ __ __ __ __ __ __ __ __ __ __ __ __ __ __ __ __ __ __ __ _ Quitting smoking is one of the most significant things they can do to help patient in the long run. I gave numerous examples of the typed of health issues they face if they continues to smoke. We discussed all the well known increased risks including substantially increased risks of MD, CVA, various different cancers and early . We also discussed that there is emerging literature to support that smoking actually worsens and intensifies chronic pain. A plan for smoking cessation will be a requirement for treatment here in our center. The pateint understand and agree to comply. --------- I counseled the patient extensively and informed of the risks of the procedure, including the risk of paralysis, nerve damage, respiratory arrest, arrhythmias, stroke, weakness, and infection, which although very low, could result in or disability. The patient acknowledged to me that they understand and accept these risks. RN EDUCATION Extensive coordination of care provided by RN to educate patient on upcoming procedure and to coordinate obtaining extensive incoming medical records. ------- RECORDS REVIEW: As per clinic policy, we will have the patient sign a release to obtain previous imaging and clinical notes. _ __ __ __ __ __ __ __ __ __ __ __ __ __ __ __ __ __ __ __ __ __ __ __ __ __ __ __ _ PSYCH: Pain affecting Neuro-psych behavior was discussed. Discussed about pain psychological counseling as a part of the multimodal approach to pain treatment. _ __ __ __ __ __ __ __ __ __ __ __ __ __ __ __ __ __ __ __ __ __ __ __ __ __ __ __ _ REHABILITATION: Discussed with the patient the importance of diet, daily physical activity and PT. Discussed with the patient the need to be scheduled for physical therapy since physical therapy will prolong the benefits of the procedure and interventions. _ __ __ __ __ __ __ __ __ __ __ __ __ __ __ __ __ __ __ __ __ __ __ __ __ __ __ __ _ GUILLERMO: [id number] I have reviewed patient's GUILLERMO report prior to prescribing Schedule II, III, and IV medications that require review by law. anita Not available 01/27/2023 10:36:43 Plan of Treatment Reminders Order Date Submit Date Provider Last Modified By Organization Details Last Modified Time Details Appointments None recorded. Lab urinalysis, dipstick [address], [address] [place], [address], 4 15:02:07 glucose, fingerstick , blood [address], 22 [facility] [place], [address], 4 15:02:07 CMP, serum or plasma 2023 024 [facility] (Laboratory), [address] [place], [address], 4 16:51:57 HbA1c (hemoglobin A1c), blood 2023 024 [facility] (Laboratory), [address] [place], [address], 4 16:51:54 TSH, serum or plasma 2023 024 [facility] (Laboratory), [address] [place], [address], 4 16:51:56 Referral urologist referral 2023 024 IZABEL Oneill MD, [address], [address], [place], [address], 4 07:37:13 Procedures injection, single, diagnostic or therapeutic substance, lumbar, sacral (PROC) - 49275, L2-L3 2022 023 [email or web address] 7 Astrid Lopez MD, [address], [address], [place], [address], 4 14:41:00 Surgeries None recorded. Imaging None recorded. Medication Orders Novolog Mix 70-30 FlexPen U-100 Insulin 100 unit/mL subcutaneou s pen 2023 024 [facility], [address], [place] [address], [address], 4 14:57:05 tamsulosin 0.4 mg capsule 2023 024 [facility], [address] [place], [address], 4 14:57:03 Novolog Mix 70-30 FlexPen U-100 Insulin 100 unit/mL subcutaneou s pen 2022 023 [facility], [address] [place], [address], 3 11:14:43 acetaminoph en 300 mg-codeine 30 mg tablet 2022 023 [email or web address] 0 [facility], [address] [employer] [place], [address], 4 14:07:17 Patient TargetsNo targets recorded. Patient InstructionsNo instructions recorded. Reason for Referral Urologist Referral for Noctu jagjit Referring Physician: Mayte Vincent, Family Medicine, Encounter Date: 07/03/2023 Results Created Date Observation Date Name Description Value Unit Range Abnormal Flag Note LastModifiedBy Organization Detail LastModifiedTime 05/09/19 24 05/09/2023 HEMOG LOBIN A1C glycosylated hemoglobin A1C 7.7 % 4.5-6. 2 high Not Available [facility] (Lab Registration) [address] [place], [address], 05/09/2023 16:51:54 05/09/19 24 05/09/2023 HEMOG LOBIN A1C estimated average glucose 174 mg/dL 82-131 high Not Available [facility] (Lab Registration) [address] [place], [address], 05/09/2023 16:51:54 05/09/19 24 05/09/2023 HEMOG LOBIN A1C note Tanner barnes other ponce noted testi ng perfo rmed at: [facility] [address] [place] [address] [phone] James barnes MD CLIA: [id number] Not Available [facility] (Lab Registration) [address] [place], [address], 05/09/2023 16:51:54 05/09/19 24 05/09/2023 THYRO ID STIMU LATIN G HORMO NE thyroid stimulating hormone 3.78 mIU/m L 0.34-4 .80 Not Available [facility] (Lab Registration) [address] [place], [address], 05/09/2023 16:51:55 05/09/19 24 05/09/2023 THYRO ID STIMU LATIN G HORMO NE note Tanner barnes other ponce noted testi ng perfo rmed at: [facility] [address] [place] [address] [phone] James barnes MD CLIA: [id number] Not Available [facility] (Lab Registration) [address] [place], [address], 05/09/2023 16:51:55 05/09/19 24 05/09/2023 COMP METAB OLIC PANEL sodium 141 mmol/ L 136-14 5 Not Available [facility] (Lab Registration) [address] [place], [address], 05/09/2023 16:51:57 05/09/19 24 05/09/2023 COMP METAB OLIC PANEL potassium 3.5 mmol/ L 3.5-5. 1 Not Available [facility] (Lab Registration) [address] [place], [address], 05/09/2023 16:51:57 05/09/19 24 05/09/2023 COMP METAB OLIC PANEL chloride 102 mmol/ L 98-107 Not Available [facility] (Lab Registration) [address] [place], [address], 05/09/2023 16:51:57 05/09/19 24 05/09/2023 COMP METAB OLIC PANEL carbon dioxide 25 mmol/ L 21-32 Not Available [facility] (Lab Registration) [address] [place], [address], 05/09/2023 16:51:57 05/09/19 24 05/09/2023 COMP METAB OLIC PANEL anion gap 14.0 Not Available [facility] (Lab Registration) [address] [place], [address], 05/09/2023 16:51:57 05/09/19 24 05/09/2023 COMP METAB OLIC PANEL glucose 181 mg/dL 70-110 high Not Available [facility] (Lab Registration) [address] [place], [address], 05/09/2023 16:51:57 05/09/19 24 05/09/2023 COMP METAB OLIC PANEL blood urea nitrogen 17 mg/dL 7-18 Not Available [facility] (Lab Registration) [address] [place], [address], 05/09/2023 16:51:57 05/09/19 24 05/09/2023 COMP METAB OLIC PANEL creatinine 1.4 mg/dL 0.8-1. 3 high Not Available [facility] (Lab Registration) [address] [place], [address], 05/09/2023 16:51:57 05/09/19 24 05/09/2023 COMP METAB OLIC PANEL BUN/creatini ne ratio 12.1 ratio 9-21 Not Available [facility] (Lab Registration) [address] [place], [address], 05/09/2023 16:51:57 05/09/19 24 05/09/2023 COMP METAB OLIC PANEL estimated glom filtration rate 52 mL/mi n >60- low Not Available [facility] (Lab Registration) [address] [place], [address], 05/09/2023 16:51:57 05/09/19 24 05/09/2023 COMP METAB OLIC PANEL total protein 6.6 g/dL 6.4-8. 2 Not Available [facility] (Lab Registration) [address] [place], [address], 05/09/2023 16:51:57 05/09/19 24 05/09/2023 COMP METAB OLIC PANEL albumin 3.4 g/dL 3.4-5. 0 Not Available [facility] (Lab Registration) [address] [place], [address], 05/09/2023 16:51:57 05/09/19 24 05/09/2023 COMP METAB OLIC PANEL calcium 8.9 mg/dL 8.5-10 .1 Not Available [facility] (Lab Registration) [address] [place], [address], 05/09/2023 16:51:57 05/09/19 24 05/09/2023 COMP METAB OLIC PANEL corrected calcium 9.4 mg/dL 8.5-10 .1 Not Available [facility] (Lab Registration) [address] [place], [address], 05/09/2023 16:51:57 05/09/19 24 05/09/2023 COMP METAB OLIC PANEL bilirubin total 0.4 mg/dL 0.4-1. 5 Not Available [facility] (Lab Registration) [address] [place], [address], 05/09/2023 16:51:57 05/09/19 24 05/09/2023 COMP METAB OLIC PANEL AST (SGOT) 13 U/L 15-37 low Not Available [facility] (Lab Registration) [address] [place], [address], 05/09/2023 16:51:57 05/09/19 24 05/09/2023 COMP METAB OLIC PANEL ALT (SGPT) 6 U/L 12-78 low Not Available [facility] (Lab Registration) [address] [place], [address], 05/09/2023 16:51:57 05/09/19 24 05/09/2023 COMP METAB OLIC PANEL alk phosphatase 71 U/L Not Available [facility] (Lab Registration) [address] [place], [address], 05/09/2023 16:51:57 05/09/19 24 05/09/2023 COMP METAB OLIC PANEL note Unles s other ponce noted testi ng perfo rmed at: [facility] [address] [facility] [place] [address] [phone] 00 James barnes MD CLIA: [id number] Not Available [facility] (Lab Registration) [address] [place], [address], 05/09/2023 16:51:57 07/03/19 24 07/03/2023 gluco se, finge rstic k, blood Blood Glucose: mg/dl 298 Not Available [address] [place], [address], 07/03/2023 14:57:55 07/03/19 24 07/03/2023 urina lysis , dipst ick Leukocytes (reference range) negati ve Not Available [address] [place], [address], 07/03/2023 14:39:18 07/03/19 24 07/03/2023 urina lysis , dipst ick Nitrite (reference range:) negati ve Not Available [address] [place], [address], 07/03/2023 14:39:18 07/03/19 24 07/03/2023 urina lysis , dipst ick Urobilinogen (reference range) 1 Not Available [address] [place], [address], 07/03/2023 14:39:18 07/03/19 24 07/03/2023 urina lysis , dipst ick Protein (reference range) 100 Not Available [address] [place], [address], 07/03/2023 14:39:18 07/03/19 24 07/03/2023 urina lysis , dipst ick pH (reference range 5-8.5) 5.5 Not Available [address] [place], [address], 07/03/2023 14:39:18 07/03/19 24 07/03/2023 urina lysis , dipst ick Blood (reference range:) negati ve Not Available [address] [place], [address], 07/03/2023 14:39:18 07/03/19 24 07/03/2023 urina lysis , dipst ick Specific [place] (reference range) 1.025 Not Available [address] [place], [address], 07/03/2023 14:39:18 07/03/19 24 07/03/2023 urina lysis , dipst ick Ketone (reference range) trace Not Available [address] [place], [address], 07/03/2023 14:39:18 07/03/19 24 07/03/2023 urina lysis , dipst ick Bilirubin (reference range) small Not Available [address] [place], [address], 07/03/2023 14:39:18 07/03/19 24 07/03/2023 urina lysis , dipst ick Glucose (reference range) 1000 Not Available [address] [place], [address], 07/03/2023 14:39:18 07/03/19 24 07/03/2023 urina lysis , dipst ick Color (reference range: yellow-brown ) Dark Yellow Not Available [address] [place], [address], 07/03/2023 14:39:18 01/15/20 23 01/14/2023 US [facility] [address] [place] [address] Phone: Fax: Name: RONDA NUNEZ Exam Date: 023 : [birth year] Age 82 years Gender : M Access ion: [id number] Physic juno: MAYTE VINCENT ty: [facility] Sabas ty HSV: Outpat ient Exam: US AORTA ULTRAS OUND OF THE ABDOMI NAL AORTA. HISTOR Y: Acute low back pain, evalua te the abdomi nal aorta. PROCED URE: Sonogr aphic images of the abdomi nal aorta were perfor med. FINDIN GS: Abdomi nal aorta measur es up to 2.5 cm in r [facility] er. There is no eviden ce of abdomi nal aortic aneury sm. There is mild plaque identi fied in the aorta. Bifurc ation is normal . IMPRES JULIUS: No eviden ce of abdomi nal aortic aneury sm. The films were review ed, interp reted, and dictat ed by Dr. Keli Virk Transc ribed by Malorie Horn PA-C Dictat ed By: KELI VIRK Transc ribed By: KELI VIRK Transc ribed On: 11:36 AM Electr onical ly signed by: KELI VIRK Thank you for referr RONDA Hurtado to [facility]. Legall y authen ticate d by POPE KELI Hathaway DO 2022-02 11:36: 37 CC'ed Logic: Orderi ng Provid er: CARLTON HU CC Provid er: CARLTON HU Attend ing Provid er: CARLTON HU Referr ing Provid er: CARLTON Greenitt ing Provid er: CARLTON [email or web address] [facility] (Radiology) [address] , [place], [address], 01/15/2023 16:06:20 Result Notes None recorded. Problems Name Problem SNOMED Code Status Onset Date Resolution Date Notes Provider Name and Address Organization Details Recorded Time Uncontrolled type 2 diabetes mellitus 585563471 Active 2022 Emory Raza null, [place] - [facility] - [place] [facility] [place] 4 14:07:43 Essential hypertension 01458910 Active 2022 Emory Raza null, [place] [facility] [place] 4 14:07:36 Nicotine dependence 49652781 Active 2022 Emory Raza null, [place] [facility] [place] 4 14:07:40 Chronic low back pain 570380000 Active 2022 Emory Raza null, [place] [facility] [place] 4 14:07:34 Heart disease 56269244 Active 2022 Emory Raza null, [place] [facility] [place] 4 14:07:38 Arthritis 5906514 Active 2022 Emory rojas, [place] - [facility] - [place] 4 14:07:29 Chronic kidney disease stage 3 589103498 Active 2023 Emory rojas, [place] - [facility] - [place] 4 14:31:31 Hyperlipidemia 49599384 Active 2023 Emory rojas, [place] - [facility] - [place] 4 14:31:33 Nocturia 259221462 Active 2023 Mayte Vincent MD [address] [place] [address], [address] [facility] [place] [facility] - [place] 4 14:54:20 Problem Notes Documentation Provider Name and Address Organization Details Recorded Time Pain Management Consult Note : [place] [facility] [address] [place] [address]L[facility], Charles (id #[id number], : 1940) Documents sent via fax will include the following message: This fax may contain sensitive and confidential personal health information that is being sent for the sole use of the intended recipient. Unintended recipients are directed to securely destroy any materials received. You are hereby notified that the unauthorized disclosure or other unlawful use of this fax or any personal health information is prohibited. To the extent patient information contained in this fax is subject to 42 CFR Part 2, this regulation prohibits unauthorized disclosure of these records. If you received this fax in error, please visit [email or web address] to notify the sender and confirm that the information will be destroyed. If you do not have internet access, please call to notify the sender and confirm that the information will be destroyed. Thank you for your attention and cooperation. [ID:[id number]][facility]-[address] [place] [address] , Utfm: 01/28/2023RE: Schuyler Nunez, : 1940, PT ID #[id number] Reece MD, I would like to thank you for referring Schuyler Nunez to our practice for consultation and evaluation of Follow Up , on 01/27/2023. I have enclosed a copy of the office evaluation for your records. Once again, thank you for allowing me to participate in the care of this patient. Sincerely, Electronically Signed by: ASTRID LOPEZ MD Encounter Reason/Date Follow Up 01/27/2023 - 10:00AM - [facility] History of Present IllnessThe patient is an 82 year old female referred to [facility] by Carlton for management of chronic low back pain. The patient denies DM, and anti-coagulation. The patient does smoke. patient returns today status post RF T12-L2 on 12/30/2022. Patient reports no improvement of pain and actually worsening pain since the procedure. Complains of axial back pain with no radicular pain. He has had this pain for many years. Pain today 10/20. Onset: 5+ yearsContext: Worsening over timeCharacter: Aching, Dull, Sharp, ShootingLocation: Low backDuration: Constant with fluctuationsIntensity: 7/10Worse: Prolonged sitting/standing; activityBetter: Rest Associated symptoms: Denies saddle anaesthesia, denies acute bowel/bladder changes, denies acute power loss. ADLs: The patient's pain interferes with daily chores, exercise, sleep, relationships, and walking. Current Pain Medications: N/APrior Pain Medications: N/ANSAIDS/OTC: Minimal benefitNon-interventional Tx: Minimal benefitPhysical Therapy: Minimal benefitInterventional Tx: BeneficialSurgery: UnknownImaging/Studies: N/AReview of Systems Constitutional::DROWISNESS. Patient reportsback pain level ___/10 and joint pain. Additionally reports:GPS 119 ROS as noted in the HPIPhysical ExamConstitutional:General Appearance: healthy-appearing, well-nourished, well-developed, and no acute distress;Friendly. Ambulation: ambulating normally. Psychiatric:Orientation: oriented to time, place, and person. Mood and Affect: normal mood and affect and active and alert. Judgement good judgement. Memory: recent memory normal and remote memory normal. Gait and Station:Gait And Stanceheel to quintero test abnormal. Skin:Inspection and palpation: no rash, lesions, ulcer, induration, nodules, jaundice, or abnormal nevi and good turgor. Nails: normal. Lumbar Spine:Inspection: no induration, ecchymosis, or swelling and normal alignment. Bony Palpation of the Lumbar Spine: no tenderness of the spinous process, the transverse process, the sacral promontory, the sacrum, or the coccyx. Bony Palpation of the Right Hip: no tenderness of the iliac crest, the ASIS, the PSIS, the pubic tubercle, the iliac tubercle, the sciatic notch, the ischial tuberosity, the SI joint, or the greater trochanter. Bony Palpation of the Left Hip: no tenderness of the iliac crest, the ASIS, the PSIS, the pubic tubercle, the iliac tubercle, the sciatic notch, the ischial tuberosity, the SI joint, or the greater trochanter. Soft Tissue Palpation on the Right: no tenderness of the iliolumbar region, the gluteus gt, the gluteus medius, the sciatic nerve, the anterior abdominal muscles, the inguinal ligament, or the piriformis andtenderness of the paraspinal region at L. Soft Tissue Palpation on the Left: no tenderness of the supraspinous ligament, the iliolumbar region, the gluteus gt, the gluteus medius, the sciatic nerve, the anterior abdominal muscles, the inguinal ligament, or the piriformis andtenderness of the paraspinal region at L. Active Range of Motion: flexion normal, extension normal, lateral flexion normal, rotation normal, andpain with motion. Passive Range of Motion: flexion normal, extension normal, lateral flexion normal, rotation normal, andpain with motion. Neurological System:Cranial Nerves: grossly intact. Sensation: grossly intact and monofilament test intact. Reflexes: deep tendon reflexes 2+ bilaterally throughout. Coordination and Cerebellum: hgyngx-hy-aobu intact and no tremor. Head:Head: normocephalic and atraumatic. Lungs:Respiratory effort: no dyspnea. Musculoskeletal::Motor Strength and Tone: normal tone and motor strength. Joints, Bones, and Muscles: no contractures, malalignment, tenderness, or bony abnormalities and normal movement of all extremities. Back:Thoracolumbar Appearance: normal curvature. Thoracic facet loading postive Lumbar facet loading positiveProcedure DocumentationNone recordedAssessment/PlanThe patient is an 82 year old female referred to [facility] by Carlton for management of chronic low back pain. The patient denies DM, and anti-coagulation. The patient does smoke approximately one pack per day. patient returns today status post RF T12-L2 on 12/30/2022. Patient reports no improvement of pain and actually worsening pain since the procedure. Complains of axial back pain with no radicular pain. He has had this pain for many years. Prior note states that he is had prior ablations with significant relief. Pain today 10/20. The patient complains of axial low back pain. This pain increases with movement, prolonged sitting/standing, sleep and mobility. This pain interferes with his ability to enjoy daily activities, and perform hobbies he enjoys. He has participated in physical therapy, but this only provided minimal benefit. He continues to perform at home exercises and stretches in an effort to maintain function. Based on history and physical exam, I believe this patient's pain is associated with lumbar spondylosis, and lumbar degenerative disc disease. I reviewed thoracic and lumbar x-rays from 12/09/2022. Thoracic x-rays show normal alignment with mild to moderate degenerative changes. Lumbar x-ray shows significant disc space narrowing at L4-L5 and L5-S1 with slight retrolisthesis of L3 on L4. To address the patient's pain, I will schedule a lumbar epidural injection L2-L3. In order to control his pain until we can better address it with interventions, I will prescribe him Tylenol 3 q.12 hours number 30 he will return post-injection * Schedule: LESI L2-L3* prescribed Tylenol No. 3 q.12 hours p.r.n. for pain #30* Follow Up: Post procedure I counseled the patient extensively and informed of the risks of the procedure, including the risk of paralysis, nerve damage, respiratory arrest, arrhythmias, stroke, weakness, and infection, which although very low, could result in or disability. The patient acknowledged to me that they understand and accept these risks. RN EDUCATION Extensive coordination of care provided by RN to educate patient on upcoming procedure and to coordinate obtaining extensive incoming medical records. -------I have discussed in great detail our potential treatment options which would include a rehabilitative approach to care. This program would include medication management, Physical Therapy, consideration for interventional procedures as appropriate, and lifestyle modification (diet, weight loss, exercise, smoking/tobacco cessation, holistic approach including meditation and yoga).The patient understands and agrees prior to proceeding with this plan._ __ __ __ __ __ __ __ __ __ __ __ __ __ __ __ __ __ __ __ __ __ __ __ __ __ __ __ _Quitting smoking is one of the most significant things they can do to help patient in the long run. I gave numerous examples of the typed of health issues they face if they continues to smoke. We discussed all the well known increased risks including substantially increased risks of MD, CVA, various different cancers and early . We also discussed that there is emerging literature to support that smoking actually worsens and intensifies chronic pain. A plan for smoking cessation will be a requirement for treatment here in our center. The pateint understand and agree to comply. I counseled the patient extensively and informed of the risks of the procedure, including the risk of paralysis, nerve damage, respiratory arrest, arrhythmias, stroke, weakness, and infection, which although very low, could result in or disability. The patient acknowledged to me that they understand and accept these risks. RN EDUCATION Extensive coordination of care provided by RN to educate patient on upcoming procedure and to coordinate obtaining extensive incoming medical records. --RECORDS REVIEW:As per clinic policy, we will have the patient sign a release to obtain previous imaging and clinical notes._ __ __ __ __ __ __ __ __ __ __ __ __ __ __ __ __ __ __ __ __ __ __ __ __ __ __ __ _PSYCH:Pain affecting Neuro-psych behavior was discussed.Discussed about pain psychological counseling as a part of the multimodal approach to pain treatment._ __ __ __ __ __ __ __ __ __ __ __ __ __ __ __ __ __ __ __ __ __ __ __ __ __ __ __ _REHABILITATION:Discussed with the patient the importance of diet, daily physical activity and PT.Discussed with the patient the need to be scheduled for physical therapy since physical therapy will prolong the benefits of the procedure and interventions._ __ __ __ __ __ __ __ __ __ __ __ __ __ __ __ __ __ __ __ __ __ __ __ __ __ __ __ _KASPER: [id number] have reviewed patient's GUILLERMO report prior to prescribing Schedule II, III, and IV medications that require review by law. 1. Degeneration of lumbar intervertebral discM51.36: Other intervertebral disc degeneration, lumbar region INJECTION, SINGLE, DIAGNOSTIC OR THERAPEUTIC SUBSTANCE, LUMBAR, SACRAL (PROC) - Note to Provider: [id number], L2-L3 acetaminophen 300 mg-codeine 30 mg tablet - Take 1 tablet(s) every 12 hours by oral route. Qty: (30) tablet Refills: 0 Pharmacy: [facility] [id number] 2. Thoracic back painM54.6: Pain in thoracic spine 3. Lumbar hynutcdbptoJ18.816: Spondylosis without myelopathy or radiculopathy, lumbar region 4. Nicotine ffnwthlkdbW41.200: Nicotine dependence, unspecified, uncomplicated Return to Office Astrid Lopez MD for OV EST 15 at [facility] on 02/24/2023 at 02:45 PM Mayte Vincent MD [address] [place] [address], [id number] [place] 01/28/2023 11:25:49 Pain Management Consult Note : [facility] CITYMi[facility] [address] [place] [facility] [id number], Charles (id #[id number], : 1940) [facility]ITALZ[facility] [address] [place] [address] Encounter Summary - Progress Note Date Printed: 01/28/2023 Documents sent via fax will include the followingmessage: This fax may contain sensitive and confidential personal health information that is being sent for the sole use of the intended recipient. Unintended recipients are directed to securely destroy any materials received. You are hereby notified that the unauthorized disclosure or other unlawful use of this fax or any personal health information is prohibited. To the extent patient information contained in this fax is subject to 42 CFR Part 2, this regulation prohibits unauthorized disclosure of these records. If you received this fax in error, please visit [email or web address] to notify the sender and confirm that the information will be destroyed. If you do not have internet access, please call to notify the sender and confirm that the information will be destroyed. Thank you for your attention and cooperation. [ID:[id number]] Patient Schuyler Nunez (82yo, M) #[id number] 1940 Patient Demographics: Address [address] [place] [address] Work Phone Encounter Notes: Encounter Reason/Date Follow Up 01/27/2023 - 10:00AM - [facility] History of Present IllnessThe patient is an 82 year old female referred to [facility] by Carlton for management of chronic low back pain. The patient denies DM, and anti-coagulation. The patient does smoke. patient returns today status post RF T12-L2 on 12/30/2022. Patient reports no improvement of pain and actually worsening pain since the procedure. Complains of axial back pain with no radicular pain. He has had this pain for many years. Pain today 10/20. Onset: 5+ yearsContext: Worsening over timeCharacter: Aching, Dull, Sharp, ShootingLocation: Low backDuration: Constant with fluctuationsIntensity: 7/10Worse: Prolonged sitting/standing; activityBetter: Rest Associated symptoms: Denies saddle anaesthesia, denies acute bowel/bladder changes, denies acute power loss. ADLs: The patient's pain interferes with daily chores, exercise, sleep, relationships, and walking. Current Pain Medications: N/APrior Pain Medications: N/ANSAIDS/OTC: Minimal benefitNon-interventional Tx: Minimal benefitPhysical Therapy: Minimal benefitInterventional Tx: BeneficialSurgery: UnknownImaging/Studies: N/A Review of Systems Constitutional::DROWISNESS. Patient reportsback pain level ___/10 and joint pain. Additionally reports:GPS 119 ROS as noted in the HPI Vitals Ht: 6 ft 3 in01/27/2023 10:02 am Wt: 206.6 lbs103/30/2022 10:02 am BMI: 25.812 10:02 am BP: 142/7101/27/2023 10:02 am T: 97.3 F 01/27/2023 10:02 am O2Sat: 94%01/27/2023 10:03 am HR: 5901/27/2023 10:03 am Pain Scale: 9103/30/2022 10:03 am Results/InterpretationsNone recorded Physical ExamConstitutional:General Appearance: healthy-appearing, well-nourished, well-developed, and no acute distress;Friendly. Ambulation: ambulating normally. Psychiatric:Orientation: oriented to time, place, and person. Mood and Affect: normal mood and affect and active and alert. Judgement good judgement. Memory: recent memory normal and remote memory normal. Gait and Station:Gait And Stanceheel to quintero test abnormal. Skin:Inspection and palpation: no rash, lesions, ulcer, induration, nodules, jaundice, or abnormal nevi and good turgor. Nails: normal. Lumbar Spine:Inspection: no induration, ecchymosis, or swelling and normal alignment. Bony Palpation of the Lumbar Spine: no tenderness of the spinous process, the transverse process, the sacral promontory, the sacrum, or the coccyx. Bony Palpation of the Right Hip: no tenderness of the iliac crest, the ASIS, the PSIS, the pubic tubercle, the iliac tubercle, the sciatic notch, the ischial tuberosity, the SI joint, or the greater trochanter. Bony Palpation of the Left Hip: no tenderness of the iliac crest, the ASIS, the PSIS, the pubic tubercle, the iliac tubercle, the sciatic notch, the ischial tuberosity, the SI joint, or the greater trochanter. Soft Tissue Palpation on the Right: no tenderness of the iliolumbar region, the gluteus gt, the gluteus medius, the sciatic nerve, the anterior abdominal muscles, the inguinal ligament, or the piriformis andtenderness of the paraspinal region at L. Soft Tissue Palpation on the Left: no tenderness of the supraspinous ligament, the iliolumbar region, the gluteus gt, the gluteus medius, the sciatic nerve, the anterior abdominal muscles, the inguinal ligament, or the piriformis andtenderness of the paraspinal region at L. Active Range of Motion: flexion normal, extension normal, lateral flexion normal, rotation normal, andpain with motion. Passive Range of Motion: flexion normal, extension normal, lateral flexion normal, rotation normal, andpain with motion. Neurological System:Cranial Nerves: grossly intact. Sensation: grossly intact and monofilament test intact. Reflexes: deep tendon reflexes 2+ bilaterally throughout. Coordination and Cerebellum: cnsqfi-dz-[id number] intact and no tremor. Head:Head: normocephalic and atraumatic. Lungs:Respiratory effort: no dyspnea. Musculoskeletal::Motor Strength and Tone: normal tone and motor strength. Joints, Bones, and Muscles: no contractures, malalignment, tenderness, or bony abnormalities and normal movement of all extremities. Back:Thoracolumbar Appearance: normal curvature. Thoracic facet loading postive Lumbar facet loading positive Assessment and PlanThe patient is an 82 year old female referred to [facility] by Carlton for management of chronic low back pain. The patient denies DM, and anti-coagulation. The patient does smoke approximately one pack per day. patient returns today status post RF T12-L2 on 12/30/2022. Patient reports no improvement of pain and actually worsening pain since the procedure. Complains of axial back pain with no radicular pain. He has had this pain for many years. Prior note states that he is had prior ablations with significant relief. Pain today 10/20. The patient complains of axial low back pain. This pain increases with movement, prolonged sitting/standing, sleep and mobility. This pain interferes with his ability to enjoy daily activities, and perform hobbies he enjoys. He has participated in physical therapy, but this only provided minimal benefit. He continues to perform at home exercises and stretches in an effort to maintain function. Based on history and physical exam, I believe this patient's pain is associated with lumbar spondylosis, and lumbar degenerative disc disease. I reviewed thoracic and lumbar x-rays from 12/09/2022. Thoracic x-rays show normal alignment with mild to moderate degenerative changes. Lumbar x-ray shows significant disc space narrowing at L4-L5 and L5-S1 with slight retrolisthesis of L3 on L4. To address the patient's pain, I will schedule a lumbar epidural injection L2-L3. In order to control his pain until we can better address it with interventions, I will prescribe him Tylenol 3 q.12 hours number 30 he will return post-injection * Schedule: LESI L2-L3* prescribed Tylenol No. 3 q.12 hours p.r.n. for pain #30* Follow Up: Post procedure I counseled the patient extensively and informed of the risks of the procedure, including the risk of paralysis, nerve damage, respiratory arrest, arrhythmias, stroke, weakness, and infection, which although very low, could result in or disability. The patient acknowledged to me that they understand and accept these risks. RN EDUCATION Extensive coordination of care provided by RN to educate patient on upcoming procedure and to coordinate obtaining extensive incoming medical records. -------I have discussed in great detail our potential treatment options which would include a rehabilitative approach to care. This program would include medication management, Physical Therapy, consideration for interventional procedures as appropriate, and lifestyle modification (diet, weight loss, exercise, smoking/tobacco cessation, holistic approach including meditation and yoga).The patient understands and agrees prior to proceeding with this plan._ __ __ __ __ __ __ __ __ __ __ __ __ __ __ __ __ __ __ __ __ __ __ __ __ __ __ __ _Quitting smoking is one of the most significant things they can do to help patient in the long run. I gave numerous examples of the typed of health issues they face if they continues to smoke. We discussed all the well known increased risks including substantially increased risks of MD, CVA, various different cancers and early . We also discussed that there is emerging literature to support that smoking actually worsens and intensifies chronic pain. A plan for smoking cessation will be a requirement for treatment here in our center. The pateint understand and agree to comply. I counseled the patient extensively and informed of the risks of the procedure, including the risk of paralysis, nerve damage, respiratory arrest, arrhythmias, stroke, weakness, and infection, which although very low, could result in or disability. The patient acknowledged to me that they understand and accept these risks. RN EDUCATION Extensive coordination of care provided by RN to educate patient on upcoming procedure and to coordinate obtaining extensive incoming medical records. --RECORDS REVIEW:As per clinic policy, we will have the patient sign a release to obtain previous imaging and clinical notes._ __ __ __ __ __ __ __ __ __ __ __ __ __ __ __ __ __ __ __ __ __ __ __ __ __ __ __ _PSYCH:Pain affecting Neuro-psych behavior was discussed.Discussed about pain psychological counseling as a part of the multimodal approach to pain treatment._ __ __ __ __ __ __ __ __ __ __ __ __ __ __ __ __ __ __ __ __ __ __ __ __ __ __ __ _REHABILITATION:Discussed with the patient the importance of diet, daily physical activity and PT.Discussed with the patient the need to be scheduled for physical therapy since physical therapy will prolong the benefits of the procedure and interventions._ __ __ __ __ __ __ __ __ __ __ __ __ __ __ __ __ __ __ __ __ __ __ __ __ __ __ __ _KASPER: [id number] have reviewed patient's GUILLERMO report prior to prescribing Schedule II, III, and IV medications that require review by law. 1. Degeneration of lumbar intervertebral discM51.36: Other intervertebral disc degeneration, lumbar region INJECTION, SINGLE, DIAGNOSTIC OR THERAPEUTIC SUBSTANCE, LUMBAR, SACRAL (PROC) - Note to Provider: [id number], L2-L3 acetaminophen 300 mg-codeine 30 mg tablet - Take 1 tablet(s) every 12 hours by oral route. Qty: (30) tablet Refills: 0 Pharmacy: [facility] [id number] 2. Thoracic back painM54.6: Pain in thoracic spine 3. Lumbar yrwijahxfhfQ86.816: Spondylosis without myelopathy or radiculopathy, lumbar region 4. Nicotine vpatzskyniJ21.200: Nicotine dependence, unspecified, uncomplicated Return to Office Astrid Lopez MD for OV EST 15 at [facility] on 02/24/2023 at 02:45 PM Patient Medical History: Allergies List Reviewed Allergies NKDA Medications Reviewed Medications NameDate Source acetaminophen 300 mg-codeine 30 mg tabletTake 1 tablet(s) every 12 hours by oral route.01/28/23 prescribed Astrid Lopez MD amLODIPine 10 mg tabletTAKE 1 TABLET BY MOUTH ONCE DAILY01/16/23 filled surescripts bisoprolol fumarate 10 mg tabletTAKE 1 TABLET BY MOUTH ONCE DAILY01/11/23 filled surescripts gabapentin 300 mg capsuleTake 1 capsule(s) twice a day by oral route.12/09/22 entered Rhonda Thomas metFORMIN 1,000 mg tabletTAKE 1 TABLET BY MOUTH TWICE DAILY11/04/22 filled surescripts NovoLOG Mix 70-30 FlexPen U-100 Insulin 100 unit/mL subcutaneous penInject 45 unit(s) twice a day by subcutaneous route.01/27/23 prescribed Mayte Vincent MD NovoLOG Mix 70-30 U-100 Insulin 100 unit/mL subcutaneous solutionINJECT 25 UNITS UNDER THE SKIN TWICE DAILY IN THE MORNING AND IN THE IPHQIIZ29/31/23 filled surescripts rosuvastatin 40 mg tabletTAKE 1 TABLET BY MOUTH ONCE DAILY FOR 90 DAYS01/16/23 filled surescripts sildenafiL 100 mg tabletTAKE 1 TABLET BY MOUTH ONCE DAILY CZJNYX00/04/23 filled surescripts Family HistoryReviewed Family History Mother - Malignant neoplastic disease Father - Malignant neoplastic disease Past Medical HistoryReviewed Past Medical History Arthritis:Y Asthma:Y Diabetes:Y Hypertension:Y Vaccine HistoryNone recorded Electronically Signed by: ASTRID LOPEZ MD Marcus rojas, [place] - [facility] [place] & [place] 01/28/2023 10:57:50 Procedures Surgical History Date Name Laterality Status Provider Name and Address Organization Details Recorded Time Appendectomy completed Mercedes Renita [place] - [facility] & [place] 11/26/2022 16:33:34 procedure on shoulder completed Mercedes Maravilla RIC[place] - [facility] [place] 11/26/2022 16:34:02 Stent Placement completed Mercedes Maravilla K - [facility] & [place] 11/26/2022 16:34:16 Imaging Results None recorded. Procedure Notes None recorded. Medical Equipment None Reported. Allergies No known drug allergies Medications Name Sig Start Date Stop Date Status Note LastModified by Organization Details LastModified Time atorvastati n 40 mg tablet Take 1 tablet every day by oral route. 12/23 completed Not Available Not Available Not Available acetaminoph en 300 mg-codeine 30 mg tablet TAKE 1 TABLET BY MOUTH EVERY 12 HOURS 05/08 completed Not Available Not Available Not Available amlodipine 5 mg tablet TAKE 1 TABLET BY MOUTH ONCE DAILY 12/05 completed Not Available Not Available Not Available sildenafil 100 mg tablet TAKE 1 TABLET BY MOUTH ONCE DAILY NEEDED active Not Available Not Available No t Available bisoprolol fumarate 10 mg tablet TAKE 1 TABLET BY MOUTH ONCE DAILY 05/08 completed Not Available Not Available Not Available tamsulosin 0.4 mg capsule TAKE 1 CAPSULE BY MOUTH EVERY DAY AT BEDTIME active Not Available Not Available No t Available amlodipine 10 mg tablet Take 1 tablet by mouth once daily for 90 days 2023 active Not Available Not Available Not Avai labmoy erythromyci n 5 mg/gram (0.5 %) eye ointment APPLY TOPICALLY 1/4 INCH STRIP TO OPERATIVE EYE(S) TWICE DAILY BEGINNING 3 DAYS PRIOR TO SURGERY BUT NOT THE DAY OF SURGERY 05/08 completed Not Available Not Available Not Available metformin 1,000 mg tablet TAKE 1 TABLET BY MOUTH TWICE DAILY active Not Available Not Available No t Available gabapentin 300 mg capsule Take 1 capsule twice a day by oral route. active Not Available Not Available No t Available quinapril 20 mg tablet TAKE 1 TABLET BY MOUTH TWICE DAILY 12/05 completed Not Available Not Available Not Available methylpredn isolone 4 mg tablets in a dose pack TAKE DIRECTED PER PACKAGE 12/05 completed Not Available Not Available Not Available losartan 100 mg tablet TAKE 1 TABLET BY MOUTH ONCE DAILY 12/05 completed Not Available Not Available Not Available doxycycline hyclate 100 mg tablet 12/05 completed Not Available Not Available Not Available Novolog Mix 70-30 FlexPen U-100 Insulin 100 unit/mL subcutaneou s pen INJECT 60 UNITS SUBCUTANE OUSLY TWICE DAILY active Not Available Not Available No t Available Novolog Mix 70-30 U-100 Insulin 100 unit/mL subcutaneou s solution INJECT 25 UNITS UNDER THE SKIN TWICE DAILY IN THE MORNING AND IN THE EVENING 05/08 completed Not Available Not Available Not Available rosuvastati n 40 mg tablet TAKE 1 TABLET BY MOUTH ONCE DAILY active Not Available Not Available No t Available Vitals Date Recorded Body height Body mass index (BMI) Body weight Body temperature Oxygen saturation Oxygen saturation in Arterial blood by Pulse oximetry Heart rate Respiratory rate Systolic blood pressure Diastolic blood pressure Provider Name and Address Organization Details Last Updated DateTime 4 190.5 cm 25.6 kg/m2 64325.4 4 g 97.9 [degF] 95 % 95 % 66 /min 18 /min 158 mm[Hg] 84 mm[Hg] Emory Raza [place] - [facility] [place] 4 10:19:01 Date Recorded Body height Body mass index (BMI) Body weight Body temperature Oxygen saturation Oxygen saturation in Arterial blood by Pulse oximetry Heart rate Respiratory rate Systolic blood pressure Diastolic blood pressure Provider Name and Address Organization Details Last Updated DateTime 4 190.5 cm 25.6 kg/m2 33092.4 4 g 97.9 [degF] 96 % 96 % 84 /min 18 /min 138 mm[Hg] 75 mm[Hg] Emory SILVA [facility] & [place] 4 14:06:53 Date Recorded Body height Body mass index (BMI) Body weight Body temperature Oxygen saturation Oxygen saturation in Arterial blood by Pulse oximetry Heart rate Respiratory rate Systolic blood pressure Diastolic blood pressure Provider Name and Address Organization Details Last Updated DateTime 4 190.5 cm 23.9 kg/m2 82797.1 4 g 97.9 [degF] 99 % 99 % 76 /min 18 /min 155 mm[Hg] 81 mm[Hg] Emory SILVA [facility] & [place] 4 14:31:12 Date Recorded Body height Body mass index (BMI) Body weight Body temperature Oxygen saturation Oxygen saturation in Arterial blood by Pulse oximetry Heart rate Respiratory rate Systolic blood pressure Diastolic blood pressure Provider Name and Address Organization Details Last Updated DateTime 3 190.5 cm 25.9 kg/m2 44968.6 2 g 97.2 [degF] 99 % 99 % 61 /min 18 /min 138 mm[Hg] 72 mm[Hg] [facility] [place] 3 10:52:27 Date Recorded Body height Body mass index (BMI) Body weight Body temperature Oxygen saturation Oxygen saturation in Arterial blood by Pulse oximetry Heart rate Systolic blood pressure Diastolic blood pressure Provider Name and Address Organization Details Last Updated DateTime 3 190.5 cm 25.8 kg/m2 35634.1 8 g 97.3 [degF] 94 % 94 % 59 /min 142 mm[Hg] 71 mm[Hg] Rhonda Connor [place] - [facility] [place] 3 10:02:54 Social History Question Answer Notes LastModified by Organizat ion Details LastModified Time Tobacco Smoking Status Current Every Day Sm[facility] [place] [facility] [place] 12/09/2022 15:28:34 Do You Have An Advance Directive? No [email or web address] Information not available 05/09/2023 Do You Wear A Helmet When Biking? Yes [email or web address] Information not available 05/09/2023 Are You Blind Or Do You Have Difficulty Seeing? No [email or web address] Information not available 05/09/2023 Is Blood Transfusion Acceptable In An Emergency? No [email or web address] Information not available 05/09/2023 What Is Your Level Of Caffeine Consumption? Occasional [email or web address] Information not available 05/09/2023 In The 14 Days Before Symptom Onset, Have You Had Close Contact With A Laboratory-confir med COVID-19 While That Case Was Ill? No [email or web address] Information not available 05/09/2023 In The 14 Days Before Symptom Onset, Have You Had Close Contact With A Person Who Is Under Investigation For COVID-19 While That Person Was Ill? No [email or web address] Information not available 05/09/2023 Have You Been To An Area Known To Be High Risk For COVID-19? No [email or web address] Information not available 05/09/2023 Are You Deaf Or Do You Have Serious Difficulty Hearing? No [email or web address] Information not available 05/09/2023 What Type Of Diet Are You Following? REGULAR Information not available 05/09/2023 Have You Processed Blood Or Body Fluids From An Ebola Virus Disease Patient Without Appropriate PPE? No [email or web address] Information not available 05/09/2023 Do You Reside In Or Have You Traveled To An Area Where Ebola Virus Transmission Is Active? No Information not available 05/09/2023 Have There Been Any Changes To Your Family Or Social Situation? No [email or web address] Information no t available 05/09/2023 What Is The Fluoride Status Of Your Home? Unknown [email or web address] Information not available 05/09/2023 Are There Any Guns Present In Your Home? No [email or web address] Information not available 05/09/2023 Have You Recently Or Are You Planning To Travel To An Area With Zika Virus? No [email or web address] Information not available 05/09/2023 Do You Use Insect Repellent Routinely? Yes [email or web address] Information not available 05/09/2023 Do You Feel Safe At Home? Yes Information not available 05/09/2023 Do You Have A Medical Power Of Agricultural Researcher? No [email or web address] Information not available 05/09/2023 What Was The Date Of Your Most Recent Tobacco Screening? 07/03/2023 [email or web address] Information not available 07/03/2023 What Is Your Current Pack Years? [email or web address] ars Information not available 12/09/2022 Do You Have Any Pets? No [email or web address] Information not available 05/09/2023 What Is Your Relationship Status? [email or web address] Information not available 05/09/2023 Do You Use Your Seat Belt Or Car Seat Routinely? Yes Information not available 05/09/2023 Do You Have Smoke And Carbon Monoxide Detectors In Your Home? Yes [email or web address] Information not available 05/09/2023 Are You Passively Exposed To Smoke? No [email or web address] Information no t available 05/09/2023 How Much Tobacco Do You Smoke? 1 PPD Information not available 12/09/2022 Do You Use Sunscreen Routinely? Yes [email or web address] Information not available 05/09/2023 Has Tobacco Cessation Counseling Been Provided? Yes [email or web address] Information not available 07/03/2023 On What Date Was Tobacco Cessation Counseling Provided? 07/03/2023 [email or web address] Information not available 07/03/2023 Do You Have Difficulty Walking Or Climbing Stairs? No [email or web address] Information not available 05/09/2023 Are You Currently In School? No [email or web address] Information not available 05/09/2023 Sex: Unknown Functional Status Question Answer Note LastModified by Organizat ion Details LastModified Time Do you use any illicit or recreational drugs? No [email or web address] Information not available 05/09/2023 Do you or have you ever used any other forms of tobacco or nicotine? No [email or web address] Information not available 07/03/2023 What is your level of alcohol consumption? None [email or web address] Information not available 05/09/2023 Are you currently employed? No [email or web address] Information not available 05/09/2023 Do you have transportation difficulties? No [email or web address] Information not available 05/09/2023 Are you able to walk? YESWOREST [email or web address] Information not available 05/09/2023 Do you have difficulty doing errands alone? No Information not available 05/09/2023 Are you able to care for yourself? Yes [email or web address] Information not available 05/09/2023 Do you have difficulty dressing or bathing? No [email or web address] Information not available 05/09/2023 What is your exercise level? Moderate [email or web address] Information not available 05/09/2023 Mental Status Question Answer Note LastModified by Organizat ion Details LastModified Time Do you feel stressed (tense, restless, nervous, or anxious, or unable to sleep at night)? [id number] Information not available 05/09/2023 Do you have difficulty concentrating, remembering or making decisions? No [email or web address] Information no t available 05/09/2023 Family History Relationship Description Onset Age of this Age Resolved Age Notes LastModified by Organization Details LastModified Time Mother Malignant neoplastic disease [email or web address] Not available 11/10 16:34:30 Father Malignant neoplastic disease [email or web address] Not available 11/10 16:34:30 Medical History Condition Response Arthritis Y Diabetes Y Asthma Y Hypertension Y Immunizations Vaccine Type Date Status Note Provider Nam e and Address Organization Details Recorded Time COVID-19, mRNA, LNP-S, PF, 100 mcg/0.5mL dose or 50 mcg/0.25mL dose 1 completed Mercedes rojas, [place] - [facility] [place] 04/16/2023 15:15:39 COVID-19, mRNA, LNP-S, PF, 100 mcg/0.5mL dose or 50 mcg/0.25mL dose 1 completed Mercedes Marav[place] null, [place] - [facility] [place] 04/16/2023 15:15:39 COVID-19, mRNA, LNP-S, PF, 100 mcg/0.5mL dose or 50 mcg/0.25mL dose 1 completed Mercedes rojas, [place] - [facility] [place] 04/16/2023 15:15:39 pneumococcal polysaccharide PPV23 8 completed Mercedes [place] null, [place] - [facility] [place] 04/16/2023 15:15:39 pneumococcal polysaccharide PPV23 0 completed Mercedes [place] null, [place] - [facility] - [place] [facility] [place] 04/16/2023 15:15:39 Pneumococcal conjugate PCV 13 6 completed Mercedes [place] null, [place] - [facility] - [place] & [place] 04/16/2023 15:15:39 Influenza, high-dose, trivalent, PF 0 completed Mercedes Renita null, [place] - [facility] - [place] & [place] 04/16/2023 15:15:40 Influenza, high-dose, trivalent, PF 8 completed Mercedes Renita null, [place] - [facility] - [place] & [place] 04/16/2023 15:15:40 Influenza, high-dose, trivalent, PF 3 completed Mercedes [place] null, [place] - [facility] [place] 04/16/2023 15:15:40 Influenza, high-dose, trivalent, PF 1 completed Mercedes Renita null, [place] - [facility] [place] 04/16/2023 15:15:40 Influenza, high-dose, trivalent, PF 9 completed Mercedes Renita null, [place] - [facility] [place] 04/16/2023 15:15:40 Influenza, high-dose, trivalent, PF 7 completed Mercedes Renita null, [place] - [facility] [place] 04/16/2023 15:15:40 Td (adult), 2 Lf tetanus toxoid, preservative free, adsorbed 5 completed Mercedes Renita null, [place] - [facility] [place] 04/16/2023 15:15:40 Past Encounters Encounter ID Performer Location Encounter Start Date Encounter Closed Date Diagnosis/Indication Diagnosis SNOMED-CT Code Diagnosis ICD10 Code Diagnosis Note [id number] Mayte Vincent MD [place] [address] [facility] [place] [address] 12/05/2022 08:22:24 12/05/2022 09:13:14 Uncontrolled type 2 diabetes mellitus 582835725 E11.65 we will check blood work. We will report results. Return in 3 months. Essential hypertension 97319036 I10 Controlled at this time. Changes in medication Nicotine dependence 5629 [address] scan recently. Chronic low back pain 27 0745795 M54.50 Lung history. Patient agrees with referral to [facility] here. Coronary arteriosclerosis 72540031 I25.10 Diagnosis and stent placement was many years ago. Patient has no exertional chest pain. History of placement of stent for coronary artery disease 662688238 Z95.5 [id number] Mayte Vincent MD [address] [place] [address] 12/11/2022 14:16:18 12/11/2022 15:20:59 Essential hypertension 19777991 I10 Controlled at this time. recommend not taking the losartan at this time. Patient has been to dispose of [employer] [employer] present meds. Return for routine visit as previously scheduled [id number] Astrid Lopez MD [facility] [address] [place] [address] [place] [address] 12/09/2022 14:20:58 12/09/2022 15:12:17 Degeneration of lumbar intervertebral disc 41524985 M51.36 Thoracic back pain 36739 8004 M54.6 Lumbar spondylosis 00724 0009 M47.816 Nicotine dependence 5629 4008 F17.200 [id number] Mayte Vincent MD [address] [place] [address] 01/07/2023 14:00:53 01/07/2023 14:54:55 Acute low back pain 133242409 M54.50 Post ablation 1 week. Recommend contacting pain management regarding symptoms. We will order ultrasound of the abdomen and pelvis to evaluate for possible aortic aneurysm. [id number] Astrid Lopez MD [facility] [address] [place] [address] [place] [address] 01/27/2023 09:36:17 01/27/2023 10:36:37 Degeneration of lumbar intervertebral disc 09463131 M51.36 Thoracic back pain 77976 8004 M54.6 Lumbar spondylosis 54956 0009 M47.816 Nicotine dependence 5629 4008 F17.200 [id number] Mayte Vincent MD [address] [place] [address] 01/27/2023 10:45:34 01/27/2023 11:17:52 Uncontrolled type 2 diabetes mellitus 780363272 E11.65 blood sugar elevated patient is taken total of 90 units yesterday. Blood sugar this morning 156. It was 555 yesterday. It has been elevated recently in the 3-4 0s. We will increase dose to 45 units twice a day continue monitoring blood sugar call for elevations to 200. [id number] Mayte Vincent MD [address] [place] [address] 03/05/2023 10:09:26 03/05/2023 10:36:47 Chronic low back pain 858671515 M54.50 Patient does not want to continue management by pain management . I explained that I did not feel there were other options at this time. He does not want referral to ortho. Recommend acetaminop hen 2 regular strength tablets t.i.d.. Return for follow-up of chronic medical problems. [id number] Mayte Vincent MD [address] [place] [id number] 05/09/2023 13:49:31 05/09/2023 14:39:05 Uncontrolled type 2 diabetes mellitus 389014216 E11.65 last hemoglobin A1c was 8. We will recheck today. we will call test results Essential hypertension 76832639 I10 blood pressure stable continue present Chronic ki dney disease stage 3 655041940 N18.30 repeat CMP today recommend once again no ibuprofen or Aleve only acetaminop hen or Tylenol Hyperlipidemia 59594077 E78.5 TSH previously was slightly elevated. Patient is on rosuvastat in we will repeat TSH today [id number] Mayte Vincent MD [address] [place] [id number] 07/03/2023 14:09:17 07/03/2023 15:35:04 Dysuria 07099357 R30.0 urine shows glucosuria and proteinuri a. No infection cells nitrites Nocturia 148005384 R35.1 symptoms are probably a combinatio n of BPH and diabetes uncontroll ed. Have increased insulin dosage. Try Flomax at Night.. Referral to Urology. Uncontroll ed type 2 diabetes mellitus 692274225 E11.65 urine has large amount of glucose present. Fingerstic k blood sugar here today is 298. Patient reports a blood sugar of 500 at home recently. We will increase insulin to 60 units twice daily. Monitor blood sugars goal is less than 200 consistent ly. Health Concerns Section Related Observation LastModified by Organization Detai ls LastModified Time None Recorded Concern Status LastModified by Organization Details LastModified Time None Recorded Advance Directives Directive N: Payers Insurance Date Sequence Insurance Name Policy Number Policy Villar Covered Member ID Villar Member ID Guarantor Name 08/30/2023 1 [employer] (MEDICARE REPLACEMENT/A DVANTAGE - PPO) Schuyler Nunez [id number] Schuyler Nunez 08/30/2023 1 [employer] (MEDICARE REPLACEMENT/A DVANTAGE - PPO) Schuyler Nunez [id number] Schuyler Nunez Notes Date Note Type Note Provider Name and Address Organization Details Recorded Time 3 text/html The patient is an 82 year old female referred to [facility] by [place] for management of chronic low back pain. The patient denies DM, and anti-coagulation. The patient does smoke. patient returns today status post RF T12-L2 on 12/30/2022. Patient reports no improvement of pain and actually worsening pain since the procedure. Complains of axial back pain with no radicular pain. He has had this pain for many years. Pain today 10/20. Onset: 5+ yearsContext: Worsening over timeCharacter: Aching, Dull, Sharp, ShootingLocation: Low backDuration: Constant with fluctuationsIntensity: /10Worse: Prolonged sitting/standing; activityBetter: Rest Associated symptoms: Denies saddle anaesthesia, denies acute bowel/bladder changes, denies acute power loss. ADLs: The patient's pain interferes with daily chores, exercise, sleep, relationships, and walking. Current Pain Medications: N/APrior Pain Medications: N/ANSAIDS/OTC: Minimal benefitNon-interventional Tx: Minimal benefitPhysical Therapy: Minimal benefitInterventional Tx: BeneficialSurgery: UnknownImaging/Studies: N/A Astrid Lopez MD [address], [place], [address], [facility] & [place] 01/28/2023 09:29:05 3 text/html Patient comes in today with concerns about his blood sugar being elevated. Patient reports yesterday read 155. He did take an extra 30 units NovoLog 70 30. He took a total of 90 units yesterday. Blood sugar this morning was 156. Blood sugars last week were in the 3-400 range. Patient states he has not changed his diet.Denies any symptoms or side effects. Mayte Vincent MD [address] [place] [address], [phone], [facility] [place] 01/27/2023 11:16:41 4 text/html patient is seen for follow-up chronic low back pain. Patient has been seen by pain management and had injections. They placed him on Tylenol 3. He states he can not take this because he made him feel weird. He does not want to have an epidural. He has not going back to the pain management clinic by his own choice. Patient has CKD 3. He should not be taking NSAIDs. He does state he has been taking 3 ibuprofen twice a day. Explained to him this was not safe. My recommendation is acetaminophen 2 tablets 3 times a day . patient does not desire referral to ortho. Patient does not have any new radicular symptoms. Mayte Vincent MD [address] [place] [address], [phone], [facility] [place] 03/05/2023 10:58:08 4 text/html patient is seen for re-evaluation medical problems. States backs doing fairly well once again reiterated the need for him to only take Tylenol or acetaminophen not ibuprofen due to CKD 3. He does not report any problems with the higher dose of insulin. Recheck hemoglobin A1c today. TSH was slightly elevated on last blood work we will check again today. He continues rosuvastatin for hyperlipidemia. Patient has no other complaints today. No chest pain or shortness Of breath.Patient is using gabapentin as needed for arthritis pain Mayte Vincent MD [address] [place] [address], [phone], [facility] & [place] 05/09/2023 14:29:34 4 text/html Patient is seen for acute visit. Patient reports nocturia 6-8 times per night. This started recently. He also notices Irritation on urinating, interruption stream and split stream when urinating. He has not had this difficulty before. Patient does not known diabetic. He does report that recently had a large meal and then his blood sugar post prandials was 500. Patient is taking his insulin twice a day.PSA in November 2022 was normal.Patient denies any fever chills or back pain. Mayte Vincent MD [address] [place] [address], [phone], [place] - [facility] 07/03/2023 14:59:00
--- OUTSIDE RECORDS SUMMARY | 2024-08-10 15:35 | XMS_ITS | Patient Health Record ---
Author Organization [facility] Address [address] [place] [facility] [address] [facility] [address] [place] [address] Care Team Providers Care Capacity Planner Name Role Phone Maxine Flores Primary Care Provider [phone] Thomas Bowman Unavailable [phone] Baron Medina Unavailable [phone] Migration, Provider Unavailable Unavailable Allergies Allergen (clinical drug ingredient) Drug/Non Drug Allergy documented on EMR Reaction Allergy Type Onset Date Status atorvastatin Lipitor Artralgia Drug Allergy Acti ve Reason For Referral No Information Medications Medication SIG (Take, Route, Frequency, Duration) Notes Start Date End Date Status Insulin Syringe *Please review a nd pick correct strength-formulati on from RSP Tooling options. If intended option is not shown, discontinue and re-order from Quick Search* 11/09/2020 Active Gabapentin 300 MG 1 cap(s) orally twic [...] once a day; Duration: 90 days Active Crestor 40 MG 1 tab(s) orally once a day (at bedtime); Duration: 90 Active metFORMIN HCl 1000 MG 1 tab(s) orally 2 times a day; Duration: 90 days Active FREESTYLE LITE TEST STRIPS - 3 TIMES A DAY AND NEEDED; Duration: 30 DAYS *Please review for potential replacement for e-prescription and drug interaction check* 03/13/2022 Active Sildenafil Citrate 100 MG 1 tab(s) orally once a day as needed; Duration: 30 days prn Active Tradjenta 5 MG 1 tab po once a day; Duration: 30 days 06/25/2021 Active Immunizations Vaccine Route Administration Date Status Comme nts Fluzone High Dose IM Intramuscular 11/27/2018 Administered Fluzone High Dose IM Intramuscular 10/20/2019 Administered Fluzone High Dose IM Intramuscular 11/09/2020 Administered Fluzone High Dose IM Intramuscular 12/18/2021 Administered Fluzone High Dose IM Intramuscular 10/23/2022 Administered Pneumovax 23 IM Intramuscular 12/15/2019 Administered Social History Tobacco Use: Social History Observation Description Date Details (start date - stop date) Current Smoker NA - NA Smoking: Question Answer Notes Are you a: current smoker How often do you smoke cigarettes? every day How many cigarettes a day do you smoke? 11-20 How soon after you wake up d o you smoke your first cigarette? 6-30 min Are you interested in quitting? 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) Active confirmed Problem Hyperglycemia due to type 2 diabetes mellitus (272637655212074) Type 2 diabetes mellitus with hyperglycemia (E11.65) Active confirmed Problem Seasonal allergic rhinitis (732185543) Other seasonal allergic rhinitis (J30.2) Active confirmed Problem Allergic rhinitis (93992689) Other allergic rhinitis (J30.89) Active confirmed Problem Chronic maxillary sinusitis (73219447) Chronic maxillary sinusitis (J32.0) Active confirmed Problem Sciatica (58390695) Lumbago with sciatica, right side (M54.41) Active confirmed Problem Sciatica (81258459) Lumbago with sciatica, left side (M54.42) Active confirmed Problem Essential hypertension (16401431) HTN (hypertension), benign (I10) Active confirmed Problem Essential hypertension (80007040) Essential hypertension (I10) Active confirmed Problem Chronic pain (66076014) Other chronic pain (G89.29) Active confirmed Problem Erectile dysfunction (disorder) (768530640) Erectile dysfunction, unspecified erectile dysfunction type (N52.9) Active confirmed Problem Long-term current us e of insulin (155036264) residential current use of insulin (Z79.4) Active confirmed Problem Arthropathy (621397190) Arthropathy, 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) Active confirmed Problem Solitary nodule of lung (701891118) Lung nodule (R91.1) Active confirmed Problem Anxiety (59295328) Situational a nxiety (F41.8) Active confirmed Problem Chronic sinusitis (95301322) Purulent postnasal drainage (J32.9) Active confirmed Problem Familial hypercholesterolemia (006582697) Familial hypercholesterolemia (E78.01) Active confirmed Problem Tobacco use (614729366) Tobacco use disorder (F17.200) Active confirmed Problem Chronic renal failur e syndrome (44054444) Chronic kidney disease, unspecified CKD stage (N18.9) Active confirmed Encounters Encounter Location Date Provider Diagnosis [facility] [address] [place] [address] [facility] [address] [place] [address] 05/15/2024 Provider Migration Plan Of Treatment Pending Test Test Name Order Date X ray : Chest 03/29/2019 Physical Therapy 07/09/2018 Cardiolite GXT 10/22/2019 C-CMP 11/27/2018 C-LIPID PANEL 11/27/2018 C-RIZWAN 11/26/2017 C-HGBA1C 11/27/2018 K-EOLW-VHHMRO CITRULLINATED PEPTIDE 11/10 C-CRP 11/21/2017 M-Complete Blood Count Auto Diff 021 M-Microalbumin,Urine 11/04/2017 M-Comprehensive Metabolic Panel 03/22/19 M-Comprehensive Metabolic Panel 01/31/20 M-Comprehensive Metabolic Panel 11/10/19 M-Comprehensive Metabolic Panel 06/09/19 M-Hemoglobin A1C 11/09/2020 M-Hemoglobin A1C 06/08/2020 M-Hemoglobin A1C 03/22/2019 M-Hemoglobin A1C 01/30/2018 M-Lipid Panel 01/30/2018 M-Lipid Panel 06/08/2020 M-Lipid Panel 11/09/2020 M-Microalb/Creat Ratio, Randm Ur 021 CT Scan : Chest, Lung Cancer Screening 0 06/21/2021 Cologuard 07/20/2021 LIPID PANEL, STANDARD (7600) 06/26/2022 COMPREHENSIVE METABOLIC PANEL (94781) CBC (INCLUDES DIFF/PLT) (6399) HEMOGLOBIN A1c (496) 06/26/2022 VITAMIN D,25-OH,TOTAL,IA [phone]) [phone] Insurance Providers Payer Name Payer Address Payer Phone Subscriber Number Group Number Insured Name Patient Relationship to Insured Coverage Start Date Coverage End Date [employer] MEDICARE [address] [address] [place] [address] [phone] [id number] Schuyler Nunez Self - patient is the insured Medications Administered Medication Instructions Date of Administration Dosage Notes Cyanocobalamin/B-12 Pt's Own Medication 06/03/2019 1 mL Cyanocobalamin/B-12 Pt's Own Medication 06/10/2019 1 mL Cyanocobalamin/B-12 Pt's Own Medication 06/18/2019 1 mL Cyanocobalamin/B-12 Pt's Own Medication 06/25/2019 1 mL Cyanocobalamin/B-12 Pt's Own Medication 07/01/2019 1 mL Cyanocobalamin/B-12 Pt's Own Medication 07/23/2019 1 mL Cyanocobalamin/B-12 Pt's Own Medication 10/20/2019 1 mL Triamcinolone Acetonide 40mg Injection 11/21/2017 1 mL Triamcinolone Acetonide 40mg Injection 06/15/2018 1 mL Triamcinolone Acetonide 40mg Injection 05/31/2019 1 mL Triamcinolone Acetonide 40mg Injection 10/20/2019 1 mL Medical (General) History Medical History History ICD Code Diabetes Arthritis HTN Hyperlipidemia Tobacco use Neuropathy Surgical History Surgery Date(Month/Year) Appendectomy Torn cartilage-bilateral shoulders Hospitalization History Reason Date(Month/Year) Right leg fracture Appendix Pneumonia
--- OUTSIDE RECORDS SUMMARY | 2024-08-10 15:35 | XMS_ITS | Data Portability ---
Author Organization [facility] [place] Address [address] [facility] [address] [place] [address] Care Team Providers Care Cyber Security Engineer Name Role Phone MAYTE DANIEL Referring Provider MAYTE IBRAHIM Primary Care Provider Assessment Encounter Date Assessment Date Assessment LastModified by Organization Details LastModified Time 07/24/2023 07/24/2023 Patient has continued lower urinary symptoms despite tamsulosin. He is changed to alfuzosin with the addition of finasteride. Oxybutynin ER 5 mg for symptoms of urgency. Patient requested prescription for sildenafil at conclusion of procedure. I stressed that he cannot take sildenafil if he carries nitroglycerin. He voiced understanding. [email or web address] Not available 07/25/2023 07:36:02 Plan of Treatment Reminders Order Date Submit Date Provider Last Modified By Organization Details Last Modified Time Details Appointments None recorded. Lab culture, urine 2023 024 [facility], [facility], [place], [address], 4 09:37:27 urinalysis panel, auto 2023 024 [email or web address] [facility] [place] [facility] With [facility], [address] [place] [address] Dr [address], [place], [address], 4 16:11:27 Referral None recorded. Procedures None recorded. Surgeries None recorded. Imaging None recorded. Medication Orders sildenafil 100 mg tablet 2023 024 [facility], [address] [place], [address], 4 16:17:11 finasteride 5 mg tablet 2023 024 [facility], [address] [place] [address], [address], 4 16:11:42 alfuzosin ER 10 mg tablet,exte nded release 24 hr 2023 024 [facility], [address] [place], [address], 4 16:11:44 oxybutynin chloride ER 5 mg tablet,exte nded release 24 hr 2023 024 [email or web address] 14 [facility] [address], [address] [place] [address], [address], 08:41:47 Patient TargetsNo targets recorded. Patient Instructions Encounter Date Encounter Id Patient Instructions Last Modified By Organization Details Last Modified Time 07/24/2023 [id number] learning about healthy weight [email or web address] Not available 07/24/2023 16:17:06 Reason for Referral None Reported. Results Created Date Observation Date Name Description Value Unit Range Abnormal Flag Note LastModifiedBy Organization Detail LastModifiedTime 07/24/1907/28/2023 URINE CULTU RE urine culture COLON Y COUNT : 10,00 0 - 100,0 00 CFU/M L Three or more isola dusty; mixed uroge nital christy . Not Available [facility], [place], [address], 07/28/2023 08:48:55 07/24/1907/24/2023 urina lysis panel , auto Unknown Analyte Clean Catch Not Available [facility] [place] [facility] With [address], [place], [address], 07/24/2023 16:08:53 07/24/19 24 07/24/2023 urina lysis panel , auto Unknown Analyte Yellow Not Available [facility] With [address], [place], [address], 07/24/2023 16:08:53 07/24/19 24 07/24/2023 urina lysis panel , auto Unknown Analyte Hazy Not Available [facility] With [address] [place], [address], 07/24/2023 16:08:53 07/24/19 24 07/24/2023 urina lysis panel , auto Unknown Analyte 1.020 Not Available [facility] With [address] [place], [address], 07/24/2023 16:08:53 07/24/19 24 07/24/2023 urina lysis panel , auto Unknown Analyte 1.003- 1.035 Not Available [facility] With [address], [place], [address], 07/24/2023 16:08:53 07/24/19 24 07/24/2023 urina lysis panel , auto Unknown Analyte 5.0 Not Available [facility] With [address] [place], [address], 07/24/2023 16:08:53 07/24/19 24 07/24/2023 urina lysis panel , auto Unknown Analyte 5.0-8. 0 Not Available [facility] With [address] [place], [address], 07/24/2023 16:08:53 07/24/19 24 07/24/2023 urina lysis panel , auto Unknown Analyte 25 Kari/ul Trace Not Available [facility] With [address] [place], [address], 07/24/2023 16:08:53 07/24/19 24 07/24/2023 urina lysis panel , auto Unknown Analyte Negati ve Not Available [facility] With [address], [place], [address], 07/24/2023 16:08:53 07/24/19 24 07/24/2023 urina lysis panel , auto Unknown Analyte Negati ve Not Available [facility] With [address] [place], [address], 07/24/2023 16:08:53 07/24/19 24 07/24/2023 urina lysis panel , auto Unknown Analyte Negati ve Not Available [facility] With [address] [place], [address], 07/24/2023 16:08:53 07/24/19 24 07/24/2023 urina lysis panel , auto Unknown Analyte Trace Not Available [facility] Services With [address], [place], [address], 07/24/2023 16:08:53 07/24/19 24 07/24/2023 urina lysis panel , auto Unknown Analyte Negati ve Not Available [facility] With [address] [place], [address], 07/24/2023 16:08:53 07/24/19 24 07/24/2023 urina lysis panel , auto Unknown Analyte Normal Not Available [facility] Services With [address] [place], [address], 07/24/2023 16:08:53 07/24/19 24 07/24/2023 urina lysis panel , auto Unknown Analyte Normal Not Available [facility] Services With [address] [place], [address], 07/24/2023 16:08:53 07/24/19 24 07/24/2023 urina lysis panel , auto Unknown Analyte 15 mg/dl (Sm) Not Available [facility] With [address] [place], [address], 07/24/2023 16:08:53 07/24/19 24 07/24/2023 urina lysis panel , auto Unknown Analyte Negati ve Not Available [facility] With [address] [place], [address], 07/24/2023 16:08:53 07/24/19 24 07/24/2023 urina lysis panel , auto Unknown Analyte 4 mg/dl Not Available [facility] With [address] [place], [address], 07/24/2023 16:08:53 07/24/19 24 07/24/2023 urina lysis panel , auto Unknown Analyte Normal 1 mg/dl Not Available [facility] With [address] [place], [address], 07/24/2023 16:08:53 07/24/19 24 07/24/2023 urina lysis panel , auto Unknown Analyte 1 mg/dl (+) Not Available [facility] With [address] [place], [address], 07/24/2023 16:08:53 07/24/19 24 07/24/2023 urina lysis panel , auto Unknown Analyte Negati ve Not Available [facility] With [address] [place], [address], 07/24/2023 16:08:53 07/24/19 24 07/24/2023 urina lysis panel , auto Unknown Analyte Negati ve Not Available [facility] [place] [facility] With [address], [place], [address], 07/24/2023 16:08:53 07/24/19 24 07/24/2023 urina lysis panel , auto Unknown Analyte Negati ve Not Available [facility] [address], [place], [address], 07/24/2023 16:08:53 Result Notes None recorded. Procedures Surgical History Date Name Laterality Status Provider Name and Address Organization Details Recorded Time appendectomy completed Murelene Fan [facility] 07/24/2023 16:05:06 Stent completed [facility] 07/24/2023 16:05:25 operative procedure on lower leg completed Murelene Fan [facility] 07/24/2023 16:06:14 Imaging Results None recorded. Procedure Notes None recorded. Medical Equipment None Reported. Allergies No known drug allergies Medications Name Sig Start Date Stop Date Status Note LastModified by Organization Details LastModified Time aspirin 325 mg tablet Daily 07/23 completed Frequenc y: daily;Me dication Descript ion: aspirin; Dosage:1 ; Route:or al; refills: 0; Quantity :otc tablet Not Available Not Available Not Available Accupril 20 mg tablet Daily 07/23 completed Frequenc y: daily;Me dication Descript ion: quinapri l; Dosage:1 ; Route:or al; refills: 0; Quantity :90 tablet Not Available Not Available Not Available amlodipin e 5 mg tablet Daily 2011 active Frequenc y: daily;Me dication Descript ion: amlodipi ne; Dosage:1 ; Route:or al; refills: 3; Quantity :90 tablet Not Available Not Available Not Available Plavix 75 mg tablet Daily 07/23 completed Frequenc y: daily;Me dication Descript ion: clopidog rel; Dosage:1 ; Route:or al; refills: 0; Quantity :30 tablet Not Available Not Available Not Available Glucophag e 1,000 mg tablet Two times a day 07/23 completed Frequenc y: bid;Medi cation Descript ion: metformi n; Dosage:1 ; Route:or al; refills: 3; Quantity :180 tablet Not Available Not Available Not Available tramadol 50 mg tablet Four times a day 07/23 completed Frequenc y: qid;Alt Frequenc y: prn;Medi cation Descript ion: tramadol ; Dosage:1 ; Route:or al; refills: 0 Not Available Not Available Not Available sildenafi l 100 mg tablet 0.5 - 1 tab po 1 hour prior to activity ; do not take if using nitrogly cerin 2023 active Not Available Not Available Not Avai lable Zebeta 5 mg tablet Daily 07/23 completed Frequenc y: daily;Me dication Descript ion: bisoprol ol; Dosage:1 ; Route:or al; refills: 0; Quantity :30 tablet Not Available Not Available Not Available simvastat in 20 mg tablet Daily 07/23 completed Frequenc y: daily;Me dication Descript ion: simvasta tin; Dosage:1 ; Route:or al; refills: 3; Quantity :90 tablet Not Available Not Available Not Available oxybutyni n chloride ER 5 mg tablet,ex tended release 24 hr Take 1 tablet every day by oral route for 90 days. 2023 active Not Available Not Available Not Avai lable finasteri de 5 mg tablet Take 1 tablet every day by oral route for 90 days. 2023 active Not Available Not Available Not Avai lable Wellbutri n XL 300 mg 24 hr tablet, extended release Daily 07/23 completed Duration : 30 days;Bert quency: daily;Me dication Descript ion: bupropio n; Dosage:1 ; Route:or al; refills: 0; Quantity :30 tablet, extended release Not Available Not Available Not Available alfuzosin ER 10 mg tablet,ex tended release 24 hr active Not Available Not Available Not Available acetamino phen active Not Available Not Available Not Available tamsulosi n active Not Available Not Available Not Available metformin active Not Available Not Yamel ilable Not Available Novolog FlexPen U-100 Insulin active Not Available Not Available Not Available rosuvasta tin active Not Available Not Available Not Available Vitals Date Recorded Body height Body mass index (BMI) Body weight Provider Name and Address Organization Details Last Updated DateTime 07/24/2023 185.42 cm 26.1 kg/m2 25376.29 g Rita Chavira [facility] 07/24/2023 15:57:30 Social History Question Answer Notes LastModified by Organizat ion Details LastModified Time Tobacco Smoking Status Current Every Day Smoker Rita Chavira [facility] 07/24/2023 16:04:57 What Was The Date Of Your Most Recent Tobacco Screening? 07/24/2023 Information not available 07/24/2023 How Much Tobacco Do You Smoke? 1 PPD Information not available 07/24/2023 Sex: Unknown Functional Status Question Answer Note LastModified by Organization D etails LastModified Time What is your level of alcohol consumption? None Information not available 07/24/2023 Mental Status None recorded. Family History Relationship Description Onset Age of this Age Resolved Age Notes LastModified by Organization Details LastModified Time Father Diabetes mellitus Not available 2023 16:04:12 Mother Family history of malignant neoplasm Not available 2023 16:04:22 Medical History Condition Response Diabetes Y Arthritis Y False Teeth Y Chronic Obstructive Pulmonary Disease Y Heart Attack (HI) Y Hypertension Y Immunizations Vaccine Type Date Status Note Provider Nam e and Address Organization Details Recorded Time COVID-19, mRNA, LNP-S, PF, 100 mcg/0.5mL dose or 50 mcg/0.25mL dose 1 completed Mitzi Wu [facility] 07/03/2023 15:33:37 COVID-19, mRNA, LNP-S, PF, 100 mcg/0.5mL dose or 50 mcg/0.25mL dose 1 completed Mitzi Wu [facility] 07/03/2023 15:33:37 COVID-19, mRNA, LNP-S, PF, 100 mcg/0.5mL dose or 50 mcg/0.25mL dose 11/24/202 1 completed Mitzi Wu [facility] 07/03/2023 15:33:37 pneumococcal polysaccharide PPV23 8 completed Mitzi Albertong [facility] 07/03/2023 15:33:37 pneumococcal polysaccharide PPV23 0 completed Mitzi Albertong [facility] 07/03/2023 15:33:37 Pneumococcal conjugate PCV 13 6 completed Mitzi Bryce [facility] 07/03/2023 15:33:37 Influenza, high-dose, trivalent, PF 0 completed Mitzi Albertong [facility] 07/03/2023 15:33:37 Influenza, high-dose, trivalent, PF 8 completed Mitzi Bryce [facility] 07/03/2023 15:33:37 Influenza, high-dose, trivalent, PF 3 completed Mitzi Albertong [facility] 07/03/2023 15:33:37 Influenza, high-dose, trivalent, PF 1 completed Mitzi Bryce [facility] 07/03/2023 15:33:37 Influenza, high-dose, trivalent, PF 9 completed Mitzi Bryce [facility] 07/03/2023 15:33:37 Influenza, high-dose, trivalent, 7 completed Mitzi Bryce [facility] 07/03/2023 15:33:37 Td (adult), 2 Lf tetanus toxoid, preservative free, adsorbed 5 [facility] 15:33:37 Past Encounters Encounter ID Performer Location Encounter Start Date Encounter Closed Date Diagnosis/Indication Diagnosis SNOMED-CT Code Diagnosis ICD10 Code Diagnosis Note [id number] TATIANA HALE MD [facility] [address] [place] [address] 07/24/2023 15:45:56 07/24/2023 17:49:01 Benign prostatic hyperplasia with outflow obstruction 841811822 N40.1 Urinary tr act infectious disease 57585286 N39.0 Urgent cody lidia to urinate 72120624 R39.15 Primary er ectile dysfunction 503686619 N52.9 Health Concerns Section Related Observation LastModified by Organization Detai ls LastModified Time None Recorded Concern Status LastModified by Organization Details LastModified Time None Recorded Advance Directives Directive None Recorded Payers Insurance Date Sequence Insurance Name Policy Number Policy Villar Covered Member ID Villar Member ID Guarantor Name 09/01/2023 1 [employer] (MEDICARE REPLACEMENT/A DVANTAGE - PPO) Schuyler Nunez [id number] Schuyler Nunez Notes Date Note Type Note Provider Name and Address Organization Details Recorded Time 07/24/2023 text/html 83-year-old patient is in the office as a new patient for my initial evaluation and discussion of benign prostatic hyperplasia with lower urinary symptoms. Daytime frequency dependent on variable fluid intake not too often, perhaps every 1-2 hours, strong urgency, no dysuria, no hematuria, nocturia 4-5x. Patient notes occasional dizziness when standing, unchanged with tamsulosin. Patient takes one pill of tamsulosin daily and a history of sildenafil PRN. History of chronic kidney disease stage 3, DMII, active smoker. TATIANA HALE MD [address] [place], [address], [facility] 07/25/2023 07:36:29
--- OUTSIDE RECORDS SUMMARY | 2024-08-10 15:35 | XMS_ITS | Clinical Summary ---
Author Organization Healthcare Address [address] [place] [address] Care Team Providers Care Trencher Driver Name Role Phone Jan Lyles MD Primary Care Provider [phone] Allergies Active Allergy Reactions Criticality Noted Date Comments Valsartan-Hydrochlorothiaz xochitl Unknown - Patient states they do not know rxn details Low 09/05/2016 Medications * This document contains information received from the source organization and may not represent a complete record from that organization. amLODIPine (Norvasc) 10 MG tablet Take 1 tablet (10 mg) by mouth 1 (one) time each day. Active oxybutynin XL (Ditropan-XL) 5 MG 24 hr tablet Take 1 tablet (5 mg) by mouth 1 (one) time each day. Do not crush, chew, or split. Active rosuvastatin (Crestor) 40 MG tablet Take 1 tablet (40 mg) by mouth 1 (one) time each day. Active sildenafil (Viagra) 100 MG tablet Take 1 tablet (100 mg) by mouth 1 (one) time each day if needed for erectile dysfunction. Active acetaminophen (Tylenol 8 Hour) 650 MG ER tablet Take 1 tablet (650 mg) by mouth 2 (two) times a day. Do not crush, chew, or split. Active pen needle, diabetic 31G X 5 MM misc Use as directed with insulin pen. 100 each 11 4 Active insulin glargine (Lantus SoloStar) 100 UNIT/ML injection pen Inject 22 Units under the skin 1 (one) time each day. 15 mL 4 Active insulin lispro (HumaLOG KWIKPEN) 100 UNIT/ML injection pen Inject 10 units with breakfast, 5 units with lunch, and 5 units with dinner under the skin with meals. Add a correction scale dose as follows: blood sugar 150-199 use 2 units, 200-249 use 4 units, 250-299 use 6 units, 300-349 use 8 units, 350-399 use 10 units, >399 12 units and call provider. 15 mL 4 Active metFORMIN (Glucophage) 1000 MG tablet Take 1 tablet (1,000 mg) by mouth 1 (one) time each day with breakfast. 30 tablet 3 4 Active carvedilol (Coreg) 25 MG tablet Take 1 tablet (25 mg) by mouth 2 (two) times a day. 60 tablet 3 4 Active senna (Senokot) 8.6 MG tablet Take 1 tablet (8.6 mg) by mouth at night if needed for constipation (give patient if no bowel movements in 3 days). 30 tablet 2 4 Active Blood Glucose Monitoring Suppl device Test three times daily 1 each 4 Active glucose blood test strip Test three times daily 300 strip 11 4 Active Lancets misc Test three times daily 300 each 11 4 Active Alcohol Sheets (Alcoh-Wipe) sheet Use as directed. 300 each 11 4 Active acetaminophen- codeine (Tylenol w/ Codeine #3) 300-30 MG tablet Take 1 tablet by mouth every 12 (twelve) hours. 3 Active bisoprolol (Zebeta) 10 MG tablet Take 1 tablet (10 mg) by mouth 1 (one) time each day. 3 Active erythromycin (Romycin) 5 MG/GM ophthalmic ointment APPLY TOPICALLY 1/4 INCH STRIP TO OPERATIVE EYE(S) TWICE DAILY BEGINNING 3 DAYS PRIOR TO SURGERY BUT NOT THE DAY OF SURGERY 4 Active NovoLOG MIX 70/30 FLEXPEN (70-30) 100 UNIT/ML injection pen INJECT 60 UNITS SUBCUTANEOUSLY TWICE DAILY Active NovoLOG MIX 70/30 (70-30) 100 UNIT/ML injection vial INJECT 25 UNITS UNDER THE SKIN TWICE DAILY IN THE MORNING AND IN THE EVENING 3 Active losartan (Cozaar) 100 MG tablet Take 1 tablet (100 mg) by mouth 1 (one) time each day. 3 Active quinapril (Accupril) 20 MG tablet 3 Active tamsulosin (Flomax) 0.4 MG 24 hr capsule Take 1 capsule (0.4 mg) by mouth 1 (one) time each day. Active Active Problems Problem Noted Date Diagnosed Date Encephalopathy 08/18/2023 Trauma 08/17/2023 Family History Medical History Relation Name Comments Diabetes Father Diverticulitis Mother Relation Name Status Comments Father Mother Social History Tobacco Use Types Packs/Day Years Used Date Smoking Tobacco: Every Day Cigarettes Smokeless Tobacco: Never Tobacco Cessation:Ready to Q uit: Not Asked; Counseling Given: Not Answered Alcohol Use Standard Drinks/Week Comments No 0 (1 standard drink = 0.6 oz pure alcohol) Alcoholic Drinks/day: Never Drank Alcohol Humiliation, Afraid, Rape, and Kick questionnair e Answer Date Recorded Within the last year, have y ou been afraid of your partner or ex-partner? No 08/20/2023 Within the last year, have y ou been humiliated or emotionally abused in other ways by your partner or ex-partner? No Within the last year, have y ou been kicked, hit, slapped, or otherwise physically hurt by your partner or ex-partner? No 08/20/2023 Within the last year, have y ou been raped or forced to have any kind of sexual activity by your partner or ex-partner? No 08/20/2023 Social Connection and Isolation Panel Answer Date Recorded In a typical week, how many times do you talk on the phone with family, friends, or neighbors? Twice a week 09/01/2023 How often do you get together with friends or re latives? Once a week 09/01/2023 How often do you attend holiness or denominational serv ices? Never 09/01/2023 Do you belong to any clubs o r organizations such as holiness groups, unions, fraternal or athletic groups, or school groups? No 09/01/2023 How often do you attend meet ings of the clubs or organizations you belong to? Never 09/01/2023 Are you , , di vorced, , never , or living with a partner? 09/01/2023 AUDIT-C Answer Date Recorded Q1: How often do you have a drink containing alcohol? Patient unable to answer 08/20/2023 Q2: How many drinks containi ng alcohol do you have on a typical day when you are drinking? Patient does not drink Q3: How often do you have si x or more drinks on one occasion? Patient unable to answer 08/20/2023 Overall Financial Resource Strain (CARDIA) Answe r Date Recorded How hard is it for you to pa y for the very basics like food, housing, medical care, and heating? Not very hard 08/20/2023 [facility] - Occupational Stress Questionnaire Answer Date Recorded Do you feel stress - tense, restless, nervous, or anxious, or unable to sleep at night because your mind is troubled all the time - these days? Not at all 08/20/2023 Exercise Vital Sign Answer Date Recorde d On average, how many days pe r week do you engage in moderate to strenuous exercise (like a brisk walk)? 0 days 08/20/2023 On average, how many minutes do you engage in exercise at this level? 0 min 08/20/2023 Hunger Vital Sign Answer Date Recorded Within the past 12 months, y ou worried that your food would run out before you got the money to buy more. Never true 08/20/19 24 Within the past 12 months, t he food you bought just didn't last and you didn't have money to get more. Never true 08/20/2023 PRAPARE - Transportation Answer Date Re corded In the past 12 months, has l ack of transportation kept you from medical appointments or from getting medications? No 08/10 In the past 12 months, has l ack of transportation kept you from meetings, work, or from getting things needed for daily living? No 08/20/2023 Housing Stability Vital Sign Answer Shahzad e Recorded In the last 12 months, was t here a time when you were not able to pay the mortgage or rent on time? No 09/01/2023 [address] of [address] Lived in the Last Year Not on f ile 09/01/2023 In the last 12 months, was t here a time when you did not have a steady place to sleep or slept in a correction (including now)? No 09/01/2023 Utilities Answer Date Recorded In the past 12 months has [employer] electric, gas, oil, or water company threatened to shut off services in your home? No 08/20/2023 Sex and Gender Information Value Date Recorded Sex Assigned at Not on file Legal Sex Male 8:18 PM EDT Gender Identity Not on file Sexual Orientation Not on file Last Filed Vital Signs Vital Sign Reading Time Taken Comments Blood Pressure 117/55 10/06/2023 3:19 PM EDT Pulse 64 10/06/2023 3:19 PM EDT Temperature 36.6 C (97.8 F) 08/29/2023 10:58 AM EDT Respiratory Rate 18 08/29/2023 8:00 AM EDT Oxygen Saturation 98% 10/06/2023 3:19 PM EDT Inhaled Oxygen Concentration - - Weight 83.9 kg (185 lb) 11/14/2023 2:06 PM EDT Height 190.5 cm (6' 3 ) 11/14/2023 2:06 PM EDT Body Mass Index 23.12 11/14/2023 2:06 PM EDT Plan of Treatment Health Maintenance Due Date Last Done Comments [facility]-Depression Screening 1942 [facility]-Diabetes: Hemoglobin A1C 1942 [facility]-/Child/Adol SDOH Screenings 1942 Diabetes: Dental Exam 1952 [facility]-Zoster Vaccines (1 of 2) 1992 [facility]-RSV Vaccine: 60+ Years or (1 - 1-dose 75+ series) 2017 [facility]-Medicare Annual Wellness (AWV) 06/17/2018 06/17/2017 [id number] Vaccine ( season) 2023 01/03/2021, 05/12/2020, 04/11/2020 [facility]- SDOH Screenings 02/20/2024 [facility]-Adult SDOH Screenings 02/20/2024 08/20/2023 [facility]-Influenza Vaccine (Season Ended) 2024 10/23/2022, 11/09/2020, 10/20/2019, Additional history exists [facility]-DTaP,Tdap,and Td Vaccines (2 - Td or Tdap) 11/04/2033 11/05/2023, 02/11/2004 [facility]-Pneumococcal Vaccine: 50+ Years Completed 12/15/2019, 11/21/2017, 08/31/2015, Additional history exists HPV Vaccines Aged Out No longer eligi ble based on patient's age to complete this topic [facility]-HIB Vaccines Aged Out No longer e ligible based on patient's age to complete this topic [facility]-Hepatitis A Vaccines Aged Out No longer eligible based on patient's age to complete this topic [facility]-IPV Vaccines Aged Out No longer e ligible based on patient's age to complete this topic [facility]-Rotavirus Vaccines Aged Out No lo nger eligible based on patient's age to complete this topic Insurance [facility] MEDIC[facility] Advance Directives * Full Code (Latest Code Status on File) Date Activated Date Inactivated Comments 08/18/2023 1:46 AM 08/29/2023 4:35 PM Assume full Question Answer Comments Patient has decision-making capacity? No Healthcare Surrogate: Healthcare POA Care Teams Trencher Driver Relationship Specialty Start Date End Date Jan Lyles MD [address] [place] [address] PCP - General 06/23/20
--- OUTSIDE RECORDS SUMMARY | 2024-08-10 15:35 | XMS_ITS | Encounter Summary ---
Author Organization Healthcare Address [address] [place] [address] Care Team Providers Care Painter Aircraft Name Role Phone Jan Lyles MD Primary Care Provider [phone] Gilma Vallejo LPN Unavailable Unavailable Encounter Details Date Type Department Care Team (Late st Contact Info) Description 08/18/2023 Lab Requisition [facility] [address] [place] [address] Jona Bronson MD [address] [facility] [address] [place] [address] Encounter for general adult medical examination without abnormal findings Social History Tobacco Use Types Packs/Day Years Used Date Smoking Tobacco: Every Day Alcohol Use Standard Drinks/Week Comments No 0 [...] the phone with family, friends, or neighbors? Three times a week 08/20/2023 How often do you get togethe r with friends or relatives? Three times a week 08/20/2023 How often do you attend chur or islam services? Patient unable to answer 08/20/2023 Do you belong to any clubs o r organizations such as yarsani groups, unions, fraternal or athletic groups, or school groups? Patient unable to answer 08/20/2023 How often do you attend meet ings of the clubs or organizations you belong to? Patient unable to answer 08/20/2023 Are you , , di vorced, , never , or living with a partner? 08/20/2023 AUDIT-C Answer Date Recorded Q1: How often [...] care, and heating? Not very hard 08/20/2023 [facility] - Occupational Stress [...] the mortgage or rent on time? No 08/20/2023 [address] of [address] Lived in the Last Year Not on f ile 08/20/2023 In the last 12 months, was t here a time when you did not have a steady place to sleep or slept in a usp (including now)? No 08/20/2023 Utilities Answer Date Recorded In the past 12 months has th e electric, gas, oil, or water company threatened to shut off services in your home? No 08/20/2023 Sex and Gender Information Value Date Recorded Sex Assigned at Not on file Legal Sex Male 8:18 PM EDT Gender Identity Not on file Sexual Orientation Not on file documented as of this encounter Functional Status * AUDIT-C Score Answer Date of Assessment Author -1 08/20/2023 3:55 PM EDT Guerita Mcguire * Question Answer Date of Assessment Author Q1: How often do you have a drink containing alcohol? Patient unable to answer 08/20/2023 3:55 PM EDT Guerita Barnes Q2: How many drinks containing alcohol do you have on a typical day when you are drinking? Patient does not drink 08/20/2023 3:55 PM EDT Guerita Barnes Q3: How often do you have six or more drinks on one occasion? Patient unable to answer 08/20/2023 3:55 PM EDT Guerita Barnes documented as of this encounter Plan of Treatment Not on file documented as of this encounter Procedures Procedure Name Priority Date/Time Associated Diagnosis Comments MULTI DRUG RESISTANCE TEST Routine 08/18/2023 12:00 PM EDT Encounter for general adult medical examination without abnormal findings documented in this encounter Results * Multi Drug Resistance Test (08/18/2023 12:00 PM EDT) Culture No growth at day 1 08/19/2023 8:58 AM EDT [facility] Swab Both anterior nares / Unknown 08/18/2023 12:00 PM EDT 08/18/2023 12:26 PM EDT Jona Bronson MD LAB MICROBIOLOGY - GEN ERAL ORDERABLES Final Result [facility] [address] [place] [address] documented in this encounter Visit Diagnoses Diagnosis Encounter for general adult medical examination without abnormal findings documented in this encounter Additional Health Concerns Infection Onset Date Last Indicated Resolved Time Meningitis Rule-Out 08/18/2023 08/18/2023 08/18/19 5:41 AM EDT Assessment Noted Time A Body Mass Index follow-up plan has been documented for the patient 08/29/2023 12:37 PM EDT documented as of this encounter Care Teams Painter Aircraft Relationship Specialty Start Date End Date Jan Lyles MD [address] [place] [address] PCP - General 06/23/20 Gilma Vallejo LPN TCM Nurse 09/01/23 09/30/23 documented as of this encounter
== END 2024-08-10 23:59 | disposition home or self-care (01) ==
LOC: RAD 15:32
PROVIDERS: PCP Internal Medicine; Visit Provider Internal Medicine
DX: M51.17 Intervertebral disc disorders with radiculopathy, lumbosacral region (principal)
CPT/HCPCS: 72110